=== PATIENT | male | born 1970 | race Caucasian/White ===

== ENCOUNTER 2022-07-22 13:38 | Emergency (ER) | payer OTHER, SELFPAY ==
--- NOTE | ~2022-07-22 | XR_ITS ---
EXAMINATION: XR chest 2V DATE: 07/22/2022 15:17 INDICATION: Fall with head injury TECHNIQUE: frontal and lateral views of the chest were obtained. COMPARISON: None FINDINGS: Small calcified nodule in the left lower lung zone consistent with old granulomatous disease. No othe r airspace opacities, pulmonary edema, pleural effusion or pneumothorax. The cardiomediastinal silhou ette is normal. Old healed mid left clavicle fracture in the couple old healed posterior left 10th an d 11th rib fractures. Mild thoracic spondylosis. No evident acute osseous normality. IMPRESSION: 1. No acute cardiopulmonary disease or acute osseous abnormality. Reviewed, dictated and finalized at location B.
--- NOTE | ~2022-07-22 | CT_ITS ---
EXAMINATION: CT brain wo con DATE: 07/22/2022 14:29 INDICATION: Head injury. TECHNIQUE: Computed tomography (CT) of the head was performed without intravenous contrast. The mA wa s adjusted according to patient size. Iterative reconstruction technique was employed. The dose-lengt h product was 605.33 mGy-cm. COMPARISON: None FINDINGS: There is no intracranial hemorrhage, acute infarction, or abnormal intracranial mass lesion . There are scattered areas of low attenuation in the cerebral white matter. The ventricles are ravindra l in size. There is mild mucosal thickening in the paranasal sinuses. The orbits are normal. The mast oid air cells are normal. IMPRESSION: 1. Mild nonspecific cerebral white matter disease, which likely represents chronic small vessel ische haider disease. Reviewed, dictated and finalized at location A. IMPRESSION: 1. Mild nonspecific cerebral white matter disease, which likely represents chicken dresser mirna small vessel ischemic disease.
[2022-07-22 13:39] VITALS: BP 121/90; PULSE 94; RESP 14; TEMP 36.2; O2SAT 98
--- NOTE | 2022-07-22 13:55 | ED.WOUNDLAC ---
HPI - Wound/Laceration General Chief Complaint: Wound/Laceration Stated Complaint: fall with small lac behind left ear Time Seen by Provider: 07/22/22 13:39 History of Present Illness HPI narrative: 52-year-old male with a history of depression and anxiety here from his nursing facility for evaluation after a fall today. Patient states that he was using his walker while he was ambulating when he lost his balance and fell backwards, hitting his head on the floor. No loss of consciousness. Patient states that he was in his usual state of health prior to the fall and denies any preceding chest pain, lightheadedness, dizziness or shortness of breath. Currently, patient feels at his baseline and denies any complaints aside from a small abrasion to his posterior left ear with no active bleeding. He has been able to walk without pain. He is unsure of his last tetanus shot. Patient tells me that he has frequent falls due to chronic gait unsteadiness and lives in an assisted living facility for this. Related Data Home Medications Medication Instructions Recorded Confirmed aspirin 81 mg tablet,delayed 81 mg PO DAILY 07/08/21 release diphenhydramine HCl 25 mg capsule 50 mg PO TID PRN 07/08/21 (Allergy Relief (diphenhydramine)) divalproex 500 mg tablet,delayed 500 mg PO Q12H 07/08/21 release fenofibrate 40 mg tablet 40 mg PO TID 07/08/21 fluoxetine 40 mg capsule 40 mg PO BID 07/08/21 magnesium hydroxide 400 mg/5 mL 5 ml PO DAILY PRN 07/08/21 oral suspension (Milk of Magnesia) omeprazole 20 mg capsule,delayed 20 mg PO DAILY 07/08/21 release psyllium husk 0.4 gram capsule 0.4 g PO DAILY 07/08/21 (Fiber (psyllium husk)) risperidone 2 mg tablet 2 mg PO DAILY 07/08/21 rosuvastatin 5 mg tablet 5 mg PO DAILY 07/08/21 tolnaftate 1 % topical cream 1 applic topical DAILY 07/08/21 (Athlete's Foot (tolnaftate)) Allergies Allergy/AdvReac Type Severity Reaction Status Date / Time No Known Allergies Allergy Verified 07/08/21 09:18 Review of Systems Review of Systems: Gen: Denies fevers or chills Eyes: Denies eye pain or visual change ENT: Denies congestion Respiratory: Denies shortness of breath or cough CV: Denies chest pain or palpitations GI: Denies abdominal pain nausea, emesis or diarrhea denies burning, urgency, frequency or hematuria Musculoskeletal: Denies back pain or muscle pain Neuro: Denies numbness, tingling, weakness or focal weakness Skin: Reports small abrasion behind left ear. Except as documented, all other systems reviewed and negative Exam Narrative: APPEARANCE: Well appearing, no pain in distress, well-nourished. Head: Concepcion sign negative. EYES: PERRLA/EOMI, conjunctivae clear NOSE: No nasal drainage EARS: External ear normal in appearance THROAT: Oropharynx is clear. Mucous membranes are moist. NECK: Supple. No adenopathy, no masses. RESPIRATORY: Airway patent, respirations nonlabored. Clear to auscultation bilaterally, no rales, rhonchi, wheezing. CARDIOVASCULAR: Regular rate and rhythm without murmurs, rubs, or gallops. ABDOMINAL: Normoactive bowel sounds. Soft, nontender, nondistended. No rebound tenderness or guarding. MUSCULOSKELETAL: Extremities are warm and well-perfused. Moves all extremities well. No edema. NEURO: Cranial nerves II through XII intact. Normal speech. No focal neurologic deficits. SKIN: 3 mm abrasion to left posterior ear noted with no active bleeding. PSYCHIATRIC: Normal affect/mood. Course Vital Signs Vital signs: Vital Signs Temperature 97.2 F L 07/22/22 13:39 Pulse Rate 94 07/22/22 13:39 Respiratory Rate 14 07/22/22 13:39 Blood Pressure 121/90 07/22/22 13:39 Pulse Oximetry 98 07/22/22 13:39 Oxygen Delivery Room Air 07/22/22 13:39 Temperature 97.2 F L 07/22/22 13:39 Pulse Rate 80 07/22/22 16:37 Respiratory Rate 12 07/22/22 16:37 Blood Pressure 129/80 07/22/22 16:37 Pulse Oximetry 98 07/22/22 16:37 Oxygen
[2022-07-22] MEDS: TETANUS,DIPHTHERIA,AC PERTUSSIS ADULT (0.5 ML) BOOSTRIX IM (14:12)
--- NOTE | 2022-07-22 15:05 | ECG_ITS ---
Measurements Intervals [place] Rate: 86 P: 51 UT: 152 QRS: 43 QRSD: 94 T: 41 QT: 335 QTc: 402 Interpretive Statements SINUS RHYTHM BASELINE ARTIFACT- I, AVR, AVL NORMAL ECG NO PREVIOUS ECG AVAILABLE FOR COMPARISON Electronically Signed On 07-22-2022 15:28:45 CDT by Alen Warren D.O.
[2022-07-22 15:46] LABS: Basophils Percent Auto 0.2 % (0.2-1.2); Eosinophils Percent Auto 0.2 % (0-4.4); Hematocrit 41.9 % (42.0-52.0); Immature Granulocyte Absolute 0.04 K/mm3 (0.00-0.031); Immature Granulocyte Percent A 0.8 % (0-0.5); Immature Platelet Fraction Pct 3.2 % (0.9-11.2); Lymphocytes Absolute Auto 1.31 K/mm3 (0.9-3.2); Mean Corpuscular HGB Conc 33.4 g/dl (32-36); Mean Corpuscular Volume 95.9 fl (80-100); Mean Platelet Volume 10.1 fl (7.4-10.4); Monocytes Absolute Auto 0.5 K/mm3 (0.1-0.6); Monocytes Percent Auto 9.1 % (2.6-8.5); Neutrophils Absolute Auto 3.2 K/mm3 (1.3-6.7); Neutrophils Percent Auto 63.7 % (45.5-73.1); Platelet Count Result 137 k/mm3 (150-375); Red Blood Count 4.37 M/mm3 (4.6-6.20); Red Cell Distribution Width 13.5 % (11.5-14.5)
[2022-07-22 15:51] VITALS: BP 123/76; PULSE 87
[2022-07-22 15:53] LABS: Anion Gap 9 mmol/L (8-16); Blood Urea Nitrogen 12 mg/dL (9-20); Calcium 8.9 mg/dL (8.4-10.2); Carbon Dioxide 25 mmol/L (22-30); Chloride 103 mmol/L (98-107); Estimated CRCL calculation 57 ml/min; Estimated Glomerular Filt Rate 58; Glucose 111 mg/dL (65-110); Potassium 4.4 mmol/L (3.4-5.0); Sodium 137 mmol/L (137-145)
[2022-07-22 15:54] VITALS: BP 124/72; PULSE 91
[2022-07-22 15:56] VITALS: BP 111/83; PULSE 91
--- NOTE | 2022-07-22 16:11 | PC.NURSE ---
[facility] contacted for transport back to [facility]
[2022-07-22 16:37] VITALS: BP 129/80; PULSE 80; RESP 12; O2SAT 98
== END 2022-07-22 19:04 ==
PROVIDERS: Physician Assistant; Emergency Provider Emergency Medicine
DX: S00.81XA Abrasion of other part of head, initial encounter (principal); Z79.82 Long term (current) use of aspirin; Z23 Encounter for immunization; W18.39XA Other fall on same level, initial encounter; Y92.129 Unspecified place in nursing home as the place of occurrence of the external cause
CPT/HCPCS: 36415; 70450; 71046; 80048; 85025; 85055; 90471; 90715; 93005; 99284

== ENCOUNTER 2022-12-17 19:41 | Emergency (ER) | payer OTHER, SELFPAY ==
[2022-12-17] VITALS (16 sets, daily range): BP systolic 107–136; BP diastolic 76–94; PULSE 89–98; RESP 16–17; TEMP 36.7; O2SAT 96–100
--- NOTE | ~2022-12-17 | CT_ITS ---
EXAMINATION: CT cervical spine wo con DATE: 12/17/2022 20:21 INDICATION: Neck pain after fall TECHNIQUE: Computed tomography (CT) of the cervical spine was performed without intravenous contrast. The dose-length product (DLP) was 436.33 mGy-cm. Automated exposure control and iterative reconstruc tion technique were employed. COMPARISON: None FINDINGS: Bone alignment is normal. There is no fracture. There are moderate loss of intervertebral d isc space height at C5-6 and mild loss of intervertebral disc space height at C6-7. The odontoid proc ess is intact. Small degenerative osteophytes project from the anterior endplates of multiple vertebr al bodies. There is multilevel mild facet and uncovertebral joint osteoarthritis. IMPRESSION: 1. Mild cervical spondylosis without acute findings. Reviewed, dictated and finalized at location F.
--- NOTE | ~2022-12-17 | CT_ITS ---
EXAMINATION: CT brain wo con INDICATION: Head injury COMPARISON: 07/22/2022 TECHNIQUE: Standard unenhanced head CT. The dose-length product (DLP) was 983.67 mGy-cm. The mA was a djusted according to patient size. Iterative reconstruction technique was employed. FINDINGS: There is no acute intraparenchymal hemorrhage. No evidence of mass lesion. No evidence of a cute infarction. There is mild periventricular and subcortical hypodensity probably related to small vessel ischemic disease. There is mild prominence of the sulci and ventricles related to cerebral atr ophy. Intracranial calcified cerebral atherosclerosis is noted. There are no extra-axial collections. There is no mass effect or midline shift. The orbits and soft tissues are unremarkable. There is mil d mucosal thickening of the paranasal sinuses. IMPRESSION: 1. No acute intracranial abnormality. 2. Age related findings. Reviewed, dictated and finalized at location F.
--- NOTE | ~2022-12-17 | XR_ITS ---
EXAMINATION: XR chest 1V portable INDICATION: Pain after fall TECHNIQUE: Portable AP chest at 2143 hours COMPARISON: 07/22/2022 FINDINGS: The lungs are free of acute opacities. No pleural effusion or pneumothorax. The cardiomedia stinal silhouette is normal. IMPRESSION: 1. No acute cardiopulmonary abnormality. Reviewed, dictated and finalized at location F.
--- NOTE | 2022-12-17 20:06 | ED.FALL ---
HPI - Fall General Chief Complaint: Fall <DO Grayson Hernandez Last Filed: 12/18/22 07:04> Stated Complaint: fall <DO Grayson Hernandez Last Filed: 12/18/22 07:04> Source: EMS and RN notes reviewed <DO Grayson Hernandez Last Filed: 12/18/22 07:04> History of Present Illness HPI Narrative: Patient presents emergency department from [facility] via EMS for a fall. Patient states he has a history of traumatic brain injury from a tree branch falling on him when he were cutting down trees states that he currently resides in an [facility]. He states that today he was walking with his walker when his legs became weak and he fell and he denies any injury from the fall states that his legs do get weak frequently when he has a urinary tract infection. He denies any fevers or chills he denies any chest pain shortness of breath abdominal pain nausea vomiting other symptoms. The patient is ANO x4 at this <DO Grayson Hernandez Last Filed: 12/18/22 07:04> Related Data Home Medications: Home Medications Medication Instructions Recorded Confirmed aspirin 81 mg tablet,delayed 81 mg PO DAILY 07/08/21 release diphenhydramine HCl 25 mg capsule 50 mg PO TID PRN 07/08/21 (Allergy Relief (diphenhydramine)) divalproex 500 mg tablet,delayed 500 mg PO Q12H 07/08/21 release fenofibrate 40 mg tablet 40 mg PO TID 07/08/21 fluoxetine 40 mg capsule 40 mg PO BID 07/08/21 magnesium hydroxide 400 mg/5 mL 5 ml PO DAILY PRN 07/08/21 oral suspension (Milk of Magnesia) omeprazole 20 mg capsule,delayed 20 mg PO DAILY 07/08/21 release psyllium husk 0.4 gram capsule 0.4 g PO DAILY 07/08/21 (Fiber (psyllium husk)) risperidone 2 mg tablet 2 mg PO DAILY 07/08/21 rosuvastatin 5 mg tablet 5 mg PO DAILY 07/08/21 tolnaftate 1 % topical cream 1 applic topical DAILY 07/08/21 (Athlete's Foot (tolnaftate)) <DO Grayson Hernandez Last Filed: 12/18/22 07:04> Allergies/Adverse Reactions: Allergies Allergy/AdvReac Type Severity Reaction Status Date / Time No Known Allergies Allergy Verified 07/08/21 09:18 <Dontae Berry DO - Last Filed: 12/18/22 07:04> Review of Systems Review of Systems: Gen.: Denies fevers or chills Eyes: Denies eye pain or visual change ENT: Denies congestion Respiratory: Denies shortness of breath or cough CV: Denies chest pain or palpitations GI: Denies abdominal pain nausea, emesis Musculoskeletal: Denies back pain or muscle pain Neuro: Reports weakness Skin: Denies rash Except as documented, all other systems reviewed and negative <Dontae Berry DO - Last Filed: 12/18/22 07:04> [facility] Past Medical History Medical History: Medical History (Updated 12/17/22 @ 22:29 by Una Majano PA-C) Traumatic brain injury <Dontae Berry DO - Last Filed: 12/18/22 07:04> Social History Social History: Social History (Updated 12/17/22 @ 20:07 by Dontae Berry DO) Smoking status: Never smoker <Dontae Berry DO - Last Filed: 12/18/22 07:04> Exam Narrative: APPEARANCE: No acute distress, nontoxic, resting in bed EYES: EOMI, PERRL HEENT: Normocephalic, atraumatic, no facial tenderness OMM Neck: Supple no midline tenderness palpation temporal patient right perigee muscles C5-7 RESPIRATORY: No respiratory distress Clear to auscultation bilaterally with no rhonchi wheezing or rales. CARDIOVASCULAR: Regular rate and rhythm without murmurs rubs or gallops. ABDOMINAL: Soft, nontender, nondistended, no rebound or guarding MUSCULOSKELETAl: Moves all extremities. No clubbing, cyanosis or edema. No tenderness of the bilateral upper or lower extremities NEURO: Awake and alert x 4. Following commands, speech normal, no focal deficits muscle strength 5 out of 5 bilateral upper and lower extremities SKIN:: Warm, dry. No rashes lesions or abrasions PSYCHIATRIC: Normal affect/mood, <Dontae Berry DO - Last Filed: 12/18/22 07:04> Course Course
[2022-12-17 21:04] LABS: Basophils Percent Auto 0.2 % (0.2-1.2); Eosinophils Percent Auto 0.2 % (0-4.4); Hematocrit 39.4 % (42.0-52.0); Hemoglobin 12.9 g/dL (14.0-18.0); Immature Granulocyte Absolute 0.04 K/mm3 (0.00-0.031); Immature Granulocyte Percent A 0.7 % (0-0.5); Immature Platelet Fraction Pct 3.2 % (0.9-11.2); Lymphocytes Absolute Auto 2.02 K/mm3 (0.9-3.2); Lymphocytes Percent Auto 35.7 % (18.3-44.2); Mean Corpuscular HGB Conc 32.7 g/dl (32-36); Mean Corpuscular Hemoglobin 32.1 pg (26-34); Mean Platelet Volume 10.6 fl (7.4-10.4); Monocytes Absolute Auto 0.6 K/mm3 (0.1-0.6); Monocytes Percent Auto 10.2 % (2.6-8.5); Platelet Count Result 139 k/mm3 (150-375); Red Blood Count 4.02 M/mm3 (4.6-6.20); Red Cell Distribution Width 13.8 % (11.5-14.5); White Blood Count 5.7 K/mm3 (4.5-10.0)
[2022-12-17 21:17] LABS: Alanine Aminotransferase 31 U/L (6-50); Albumin Level 3.7 g/dL (3.5-5.1); Alkaline Phosphatase 66 U/L (38-126); Anion Gap 6 mmol/L (8-16); Aspartate Amino Transferase 39 U/L (17-59); Bilirubin,Total 0.5 mg/dL (0.2-1.3); Blood Urea Nitrogen 16 mg/dL (9-20); Calcium 9.2 mg/dL (8.4-10.2); Carbon Dioxide 26 mmol/L (22-30); Chloride 108 mmol/L (98-107); Estimated Glomerular Filt Rate > 60; Glucose 92 mg/dL (65-110); Sodium 140 mmol/L (137-145)
[2022-12-17 22:15] LABS: Appearance Urine Clear (Clear); Bacteria Urine None Seen /hpf; Bilirubin Urine Negative (Negative); Color Urine Yellow (Yellow); Glucose Urine UA Negative (Negative); Ketones Urine Trace mg/dL (Negative); Leukocyte Esterase Ur Negative LEU/UL (Negative); Need Manual Microscopic Reviewed; Nitrate Urine Negative (Negative); Non Pathogenic Casts 0-2; Protein Urine Negative (Negative); Specific Grav Ur 1.025 (1.001-1.035); Squamous Epithelial Cell Urine None seen /hpf (Few); WBC Urine 0-5 /hpf
[2022-12-17 22:18] LABS: Add Urine Microscopic? YES
--- NOTE | 2022-12-17 23:55 | PC.NURSE ---
Report given to WILLIAM De Dios.
--- NOTE | 2022-12-17 23:57 | PC.NURSE ---
See incident report filled out by WILLIAM Garcia charge for [id number].
[2022-12-18 00:01] VITALS: BP 106/73
--- NOTE | 2022-12-18 00:04 | PC.NURSE ---
Report called to LUKE Curtis at [facility] at [phone].
[2022-12-18 01:23] VITALS: BP 116/80; PULSE 83; RESP 18; O2SAT 99
== END 2022-12-18 01:25 ==
PROVIDERS: Emergency Provider Emergency Medicine; PCP Internal Medicine
DX: R53.1 Weakness (principal); Z87.820 Personal history of traumatic brain injury
CPT/HCPCS: 36415; 70450; 71045; 72125; 80053; 81001; 85025; 85055; 99284

== ENCOUNTER 2023-01-18 08:38 | Inpatient (IN) | payer OTHER, SELFPAY ==
[2023-01-18] VITALS (26 sets, daily range): BP systolic 85–111; BP diastolic 57–89; PULSE 112–142; RESP 16–31; TEMP 36.4–37.3; O2SAT 86–96; BMI 26.6
--- NOTE | ~2023-01-18 | CT_ITS ---
EXAMINATION: CTA chest PE protocol DATE: 01/21/2023 12:49 INDICATION: Chest pain. TECHNIQUE: Computed tomography angiography (CTA) of the chest was performed with 100 mL Omnipaque-350 intravenous contrast timed to evaluate the pulmonary arteries. Coronal maximum intensity projection 3D-reconstructions were created by the technologist. Automated exposure control and iterative reconst ruction technique were employed. The dose-length product was 566.73 mGy-cm. COMPARISON: CT abdomen and pelvis 01/18/2023 FINDINGS: There is mild scarring at the lung apices. There are airspace and groundglass opacities in the lower lobes and lingula. There are centrilobular nodules and tree-in-bud opacities in left upper lobe. There are peripheral groundglass opacities in the upper lobes. A calcified left lung nodule is consistent with old granulomatous disease. There is no pleural effusion. The heart size is normal. No pericardial effusion. There is a large distribution of acute pulmonary emboli involving all lobes in cluding in distal left main pulmonary artery. There is mild bilateral gynecomastia. There is mild tho racic spondylosis. IMPRESSION: 1. Acute pulmonary emboli in all lobes. No findings of right heart strain. 2. Diffuse lung disease, worst in the lower lobes, likely a combination of infarcts and multifocal pn eumonia. Reviewed, dictated and finalized at location A. IMPRESSION: 1. Acute pulmonary emboli in all lobes. No findings of right heart strain. 2. Diffuse lung disease, worst in the lower lobes, likely a combination of infa rcts and multifocal pneumonia.
--- NOTE | ~2023-01-18 | XR_ITS ---
Portable chest x-ray Comparison: 01/19/2023 Clinical History: Pneumonia Findings: COPD pattern of the lungs present. Questionable minimal bibasilar pulmonary edema. Cardio mediastinal silhouette is stable. Bones and soft tissues are unremarkable. Impression: COPD pattern of the lungs with questionable minimal bibasilar pulmonary edema. Reviewed, dictated and finalized at [facility]. Impression: COPD pattern of the lungs with questionable minimal bibasilar pulmonary edema.
--- NOTE | ~2023-01-18 | XR_ITS ---
EXAMINATION: XR abdomen/kub 1V DATE: 01/23/2023 10:41 INDICATION: Fecal impaction. TECHNIQUE: A supine view of the abdomen on 2 radiographs was obtained. COMPARISON: CT abdomen and pelvis 01/18/2023 FINDINGS: There are no dilated loops of bowel. Stool distends the rectum. The small bowel is normal i n caliber. There is a catheter in the bladder. IMPRESSION: 1. Stool distends the rectum. Reviewed, dictated and finalized at location A.
--- NOTE | ~2023-01-18 | XR_ITS ---
MODIFIED ESOPHAGRAM HISTORY: Dysphagia with failed modified swallow study 2 days prior. TECHNIQUE: Modified barium esophagram was performed on . I administered fluoroscopy and performed the exam with speech pathologist. Patient was seated for lateral fluoroscopic imaging for ingestion of thin liquids, pudding, solids and quantified amounts, followed by thin liquids in uncontrolled amount s. This was recorded on tape. A single fluoroscopic spot image was also recorded. The DAP for this pr ocedure was 1.119 Gycm2. The amount of fluoroscopy time used during this procedure was 1.5 minutes. FINDINGS: Oral stage: Adequate function. Pharyngeal stage: Adequate function. Cervical/esophageal stage: Adequate function. IMPRESSION: Patient tolerated regular consistency oral feedings in the upright position. Please lucia elate with speech pathologist findings and specific feeding recommendations. Reviewed, dictated and finalized at location A. IMPRESSION: Patient tolerated regular consistency oral feedings in the upright position. Please correlate with speech pathologist findings and specific feedi ng recommendations.
--- NOTE | ~2023-01-18 | XR_ITS ---
EXAMINATION: XR barium swallow modified DATE: 01/22/2023 13:17 INDICATION: Choking episode. TECHNIQUE: The patient was given barium-containing material of multiple consistencies to swallow by t karin speech pathologist while I performed fluoroscopy. Fluoroscopy exposure time was 1.5 minutes. The n umber of fluoroscopy images saved to the PACS was 1. Dose-area product was 1.007 Gy-cm^2. FINDINGS: There is reduced laryngeal elevation, reduced tongue base retraction, reduced pharyngeal squeeze, nirmal lecular residue, piriform sinus residue, pharyngeal wall residue, and laryngeal penetration. IMPRESSION: 1. Laryngeal penetration. High risk for aspiration, but no aspiration visualized. 2. Please refer to the speech therapy report for recommendations. Reviewed, dictated and finalized at location A. IMPRESSION: 1. Laryngeal penetration. High risk for aspiration, but no aspiration visualize d. 2. Please refer to the speech therapy report for recommendations.
--- NOTE | ~2023-01-18 | US_ITS ---
EXAMINATION: US renal BI DATE: 01/19/2023 12:45 INDICATION: Acute kidney injury. TECHNIQUE: Multiple ultrasound grayscale images of the kidneys were obtained. COMPARISON: CT abdomen and pelvis 01/18/2023 FINDINGS: The right kidney measures 11.3 x 7.2 x 6.4 cm. The left kidney measures 12.0 x 6.2 x 6.1 cm. The kidn eys demonstrate normal parenchymal echogenicity. There are cysts in right kidney measuring up to 4.4 cm. There is no hydronephrosis. The bladder is decompressed by a Palmer catheter. IMPRESSION: 1. Normal kidney sizes. No hydronephrosis. Reviewed, dictated and finalized at location A.
--- NOTE | ~2023-01-18 | MR_ITS ---
EXAMINATION: MR brain/brain stem wo/w con DATE: 01/20/2023 11:54 INDICATION: Altered mental status. TECHNIQUE: Magnetic resonance imaging (MRI) of the brain and brainstem was performed without and with 15 mL MultiHance intravenous contrast. COMPARISON: Head CT 01/18/2023 FINDINGS: There are scattered areas of nonspecific increased T2-weighted signal intensity in the cere bral white matter. There is no intracranial hemorrhage, acute infarction, or abnormal intracranial ma ss lesion. There is chronic encephalomalacia in anteroinferior right frontal lobe. The ventricles are normal in size. The orbits are normal. The paranasal sinuses are clear. The mastoid air cells are no rmal. IMPRESSION: 1. Chronic encephalomalacia in anteroinferior right frontal lobe. 2. Mild nonspecific cerebral white matter disease, which likely represents chronic small vessel ische haider disease. Reviewed, dictated and finalized at location A. IMPRESSION: 1. Chronic encephalomalacia in anteroinferior right frontal lobe. 2. Mild nonspecific cerebral white matter disease, which likely represents chronometer tester mirna small vessel ischemic disease.
--- NOTE | ~2023-01-18 | XR_ITS ---
Portable chest x-ray Comparison: 12/17/2022 Clinical History: Hypoxia Findings: There is hazy airspace opacity at the left infrahilar region. Right lung clear. Cardiomed iastinal silhouette is stable. Bones and soft tissues are unremarkable. Impression: Hazy left infrahilar airspace disease, suspicious for pneumonia. Recommend follow-up examination at a minimum, versus CT to further evaluate as indicated. Reviewed, dictated and finalized at location . Impression: Hazy left infrahilar airspace disease, suspicious for pneumonia. Recommend foll ow-up examination at a minimum, versus CT to further evaluate as indicated.
--- NOTE | ~2023-01-18 | US_ITS ---
EXAMINATION: US venous doppler [facility] DATE: 01/18/2023 17:49 INDICATION: Edema . TECHNIQUE: Grayscale images without and with compression and Doppler images of the bilateral lower ex tremity veins were obtained. COMPARISON: 09/17/2016 FINDINGS: The right common femoral vein was initially noncompressible with no flow. However, flow and compressi bility returned during at the examination. The deep femoral, superficial femoral, gastrocnemius, grea ter saphenous, and popliteal veins were noncompressible and demonstrated no flow. Partial flow in the posterior tibial and peroneal veins. Mobile margin of thrombus noted in the right superficial femora l vein. Lack of flow and compressibility in the left common femoral vein, profunda (deep) femoral vein, femo ral vein, popliteal vein, gastrocnemius vein, and greater saphenous vein. Partial flow in the calf ve ins. IMPRESSION: 1. Thrombus initially visualized in the right common femoral vein which resolved during examination suggesting active proximal embolization. 2. Extensive deep venous thrombosis in the remaining right lower extremity veins, including mobile th rombus which is at risk for further embolization. 3. Extensive deep venous thrombosis in the left lower extremity veins. 4. Consider CT pulmonary angiography to evaluate for pulmonary emboli. Results reported telephonically to Leanna Recinos RN by Dr. Correa at 5:39 PM on 01/18/2023. Reviewed, dictated and finalized at location K. IMPRESSION: 1. Thrombus initially visualized in the right common femoral vein which resolv ed during examination suggesting active proximal embolization. 2. Extensive deep venous thrombosis in the remaining right lower extremity vein s, including mobile thrombus which is at risk for further embolization. 3. Extensive deep venous thrombosis in the left lower extremity veins. 4. Consider CT pulmonary angiography to evaluate for pulmonary emboli. Results reported telephonically to Leanna Recinos RN by Dr. Correa at 5:39 PM on 01/18/2023.
--- NOTE | ~2023-01-18 | CT_ITS ---
EXAMINATION: CT abdomen pelvis wo con DATE: 01/18/2023 10:42 INDICATION: Hematuria, distended bladder and sepsis TECHNIQUE: Computed tomography (CT) of the abdomen and pelvis was performed without intravenous contr ast. Automated exposure control and iterative reconstruction technique were employed. The dose-length product was 936.63 mGy-cm. COMPARISON: None FINDINGS: Consolidation with small mild surrounding groundglass opacity in the medial aspect of the left lower lobe consistent with pneumonia. More linear opacities in the right lower lobe which would favor atele ctasis. Calcified nodule at the lingula consistent with old granulomatous disease. Heart size is norm al. No pericardial or pleural effusion. Liver, gallbladder, spleen, pancreas and bilateral adrenal gl ands are normal. Bilateral renal cysts, the largest on the right measuring up to 4 cm. Mild bilateral hydronephrosis without associated hydroureter. No evident urolithiasis or evident obstructing masses . Gas and a Palmer catheter within the bladder. Despite being largely decompressed the bladder is joseluis edly patulous extending up to 23 cm cephalad to the level of the base of the bladder where there are changes of prior prostatectomy. There is some trace stranding surrounding the decompressed bladder bishop spicious for cystitis. 9.2 x 7.7 cm ball of stool at the rectum suggestive of possible constipation w ith fecal impaction. Moderate amount of stool in the more proximal colon. Small bowel and appendix ar e normal. No free intraperitoneal gas or fluid. No pathologically enlarged abdominal or pelvic lympha denopathy. Tiny fat-containing umbilical hernia. Sacralized L5 segment with moderate to severe degene rative disc disease at L4-L5. IMPRESSION: 1. Left lower lobe pneumonia. 2. Inflammatory stranding surrounding the likely decompressed but markedly patulous bladder which is suspicious for cystitis. Correlate with urinalysis. 3. Mild bilateral hydronephrosis without associated hydroureter or obstructing stones or masses which along with likely bladder may represent patulous collecting systems related to chronic outlet obstru ction or neurogenic bladder. Patient is post prostatectomy with Palmer catheter in the bladder. 4. Moderate amount of colonic stool with 9.2 x 7.7 similar ball of stool at rectum suggestive of cons tipation with fecal impaction. Reviewed, dictated and finalized at location L. IMPRESSION: 1. Left lower lobe pneumonia. 2. Inflammatory stranding surrounding the likely decompressed but markedly patu lous bladder which is suspicious for cystitis. Correlate with urinalysis. 3. Mild bilateral hydronephrosis without associated hydroureter or obstructing stones or masses which along with likely bladder may represent patulous collect ing systems related to chronic outlet obstruction or neurogenic bladder. Patien t is post prostatectomy with Palmer catheter in the bladder. 4. Moderate amount of colonic stool with 9.2 x 7.7 similar ball of stool at rec alejandra suggestive of constipation with fecal impaction.
--- NOTE | ~2023-01-18 | US_ITS ---
US scrotum doppler INDICATION: Scrotal edema TECHNIQUE: Testicular sonogram utilizing grayscale and color Doppler FINDINGS: The testes are normal in size and appearance. No focal lesions are seen. The right testes measures 3.4 x 3.1 x 3.2 cm centimeters, and the left testis measures 4.4 x 2.8 x 2.8 cm cm. There is normal vascular flow to both testes. There is severe diffuse bilateral scrotal edema. The right and left epididymides appear normal. There is a right hydrocele. IMPRESSION: 1. Severe bilateral scrotal edema. 2: Small right hydrocele. Reviewed, dictated and finalized at location L.
--- NOTE | ~2023-01-18 | XR_ITS ---
EXAMINATION: XR chest 1V portable DATE: 01/19/2023 13:11 INDICATION: Left lower lobe pneumonia. TECHNIQUE: A single frontal view of the chest was obtained. COMPARISON: Chest single view 01/18/2023, CT abdomen and pelvis 01/18/2023 FINDINGS: There are mild airspace opacities in right lower lung zone and left mid and lower lung zone s. No pleural effusion or pneumothorax. The heart size is normal. IMPRESSION: 1. Mild airspace opacities in right lower lung zone and left mid and lower lung zones with improvemen t on the left, consistent with pneumonia. Reviewed, dictated and finalized at location A. IMPRESSION: 1. Mild airspace opacities in right lower lung zone and left mid and lower lung zones with improvement on the left, consistent with pneumonia.
--- NOTE | ~2023-01-18 | CT_ITS ---
EXAMINATION: CT brain wo con DATE: 01/18/2023 19:43 INDICATION: ams . TECHNIQUE: Computed tomography (CT) of the head was performed without intravenous contrast. The mA wa s adjusted according to patient size. Iterative reconstruction technique was employed. The dose-lengt h product was 1362.00 mGy-cm. COMPARISON: 12/17/2022. FINDINGS: No acute intracranial hemorrhage or extra-axial fluid collection. No hydrocephalus, mass, or herniation. No acute ischemic infarct. Unremarkable dural venous sinus attenuation. No acute osseous abnormality. Aerated secretions in the posterior aspect of the sphenoid sinus. Mild mucosal thickening in the maxi llary sinuses, the remaining aerated spaces are clear. Mild atrophy and chronic white matter change. Atherosclerotic intracranial calcification. IMPRESSION: No acute intracranial process. Aerated secretions in the sphenoid sinus may represent acute sinusitis in the appropriate clinical context. Reviewed, dictated and finalized at location K. IMPRESSION: No acute intracranial process. Aerated secretions in the sphenoid sinus may rep resent acute sinusitis in the appropriate clinical context.
--- NOTE | 2023-01-18 08:50 | ECG_ITS ---
Measurements Intervals [place] Rate: 138 P: 41 CT: 127 QRS: 61 QRSD: 87 T: 60 QT: 271 QTc: 411 Interpretive Statements SINUS TACHYCARDIA ABNORMAL ECG COMPARED TO ECG 07/22/2022 15:26:42 SINUS TACHYCARDIA NOW PRESENT Electronically Signed On 01-18-2023 9:16:02 CDT by Alen Warren D.O.
[2023-01-18] MEDS: SODIUM CHLORIDE 0.9% IV 1,000 ML 999 ML IV CONT (09:28)
--- NOTE | 2023-01-18 09:28 | ED.AMS ---
HPI - Altered Mental Status General Chief Complaint: Altered Mental Status Stated Complaint: AMS Time Seen by Provider: 01/18/23 08:50 History of Present Illness HPI narrative: Patient presenting from [facility] with worsening confusion, he does have a history of schizophrenia and TBI, per [facility] had been having more difficulty breathing, was hypoxic and hypotensive. Had x-ray yesterday that showed large mass in abdomen/pelvis. Patient denies any issues or pain anywhere. Related Data Home Medications Medication Instructions Recorded Confirmed aspirin 81 mg tablet,delayed 81 mg PO DAILY 07/08/21 release diphenhydramine HCl 25 mg capsule 50 mg PO TID PRN 07/08/21 (Allergy Relief (diphenhydramine)) divalproex 500 mg tablet,delayed 500 mg PO Q12H 07/08/21 release fenofibrate 40 mg tablet 40 mg PO TID 07/08/21 fluoxetine 40 mg capsule 40 mg PO BID 07/08/21 magnesium hydroxide 400 mg/5 mL 5 ml PO DAILY PRN 07/08/21 oral suspension (Milk of Magnesia) omeprazole 20 mg capsule,delayed 20 mg PO DAILY 07/08/21 release psyllium husk 0.4 gram capsule 0.4 g PO DAILY 07/08/21 (Fiber (psyllium husk)) risperidone 2 mg tablet 2 mg PO DAILY 07/08/21 rosuvastatin 5 mg tablet 5 mg PO DAILY 07/08/21 tolnaftate 1 % topical cream 1 applic topical DAILY 07/08/21 (Athlete's Foot (tolnaftate)) Allergies Allergy/AdvReac Type Severity Reaction Status Date / Time No Known Allergies Allergy Verified 12/21/22 13:49 Review of Systems Review of Systems: CONST: Fever. HEENT: No sore throat C/V: No chest pain RESP: Difficulty breathing GI: no abdominal pain : No dysuria. M/S: No joint pain. SKIN: No rash. NEURO: [No headache] PSYCH: [No depression] [facility] Past Medical History Medical History Traumatic brain injury Social History Social History Smoking status: Never smoker Exam Narrative: EXAMINATION OF ORGAN SYSTEMS/BODY AREAS: Constitutional: Vital signs per nursing GENERAL: Tachypneic but does not appear to be in pain HEAD: Normal with no signs of head trauma. EYES: EOMI, conjunctiva normal ENT: Hearing grossly intact LUNGS: Nonlabored breathing. HEART: [Regular rate and rhythm] ABD: [Soft], distended EXT: No obvious deformities SKIN: [No decubitus ulcers.] NEURO: [Alert.] PSYCH: Normal affect Course Vital Signs Vital signs: Vital Signs Temperature 99.1 F 01/18/23 08:44 Pulse Rate 142 H 01/18/23 08:44 Respiratory Rate 25 H 01/18/23 08:44 Blood Pressure 92/65 L 01/18/23 08:44 Pulse Oximetry 89 L 01/18/23 08:44 Oxygen Delivery Nasal Cannula 01/18/23 08:44 Oxygen Flow Rate 4 01/18/23 08:44 Temperature 99.1 F 01/18/23 08:44 Pulse Rate 123 H 01/18/23 12:05 Respiratory Rate 30 H 01/18/23 12:05 Blood Pressure 90/71 L 01/18/23 12:00 Pulse Oximetry 94 01/18/23 12:00 Oxygen Delivery Nasal Cannula 01/18/23 08:44 Oxygen Flow Rate 4 01/18/23 08:44 MDM - Altered Mental Status MDM Narrative Medical decision making narrative: 1) Differential diagnosis: Infection including UTI, pneumonia 2) Comorbidities: TBI, schizophrenia 3) External notes reviewed: [facility] paperwork, prior admission 4) History sources independently obtained from: [facility] paperwork, sister I called 5) Discussion of management with: Hospitalist 6) Independent interpretation of: Chest x-ray, EKG, labs 7) Diagnostic tests or therapies considered but not ordered: CT head however patient does not have history of fall and I have good explanation for his altered mental status 8) Social determinants of health: Schizophrenia 9) Shared decision making: Discussed with sister patient's CODE STATUS 52-year-old male with history of TBI, schizophrenia presenting with altered mental status, found to be tachycardic, tachypneic, hypoxic, sepsis work-up immediately initia
[2023-01-18 10:01] LABS: Basophils Absolute Auto 0.1 K/mm3 (0.0-0.1); Basophils Percent Auto 0.5 % (0.2-1.2); Hematocrit 39.6 % (42.0-52.0); Hemoglobin 12.8 g/dL (14.0-18.0); Immature Granulocyte Absolute 0.27 K/mm3 (0.00-0.031); Immature Granulocyte Percent A 1.5 % (0-0.5); Lymphocytes Absolute Auto 0.64 K/mm3 (0.9-3.2); Lymphocytes Percent Auto 3.7 % (18.3-44.2); Mean Corpuscular HGB Conc 32.3 g/dl (32-36); Mean Corpuscular Hemoglobin 31.8 pg (26-34); Mean Corpuscular Volume 98.3 fl (80-100); Mean Platelet Volume 10.2 fl (7.4-10.4); Monocytes Absolute Auto 2.8 K/mm3 (0.1-0.6); Monocytes Percent Auto 16.1 % (2.6-8.5); Neutrophils Absolute Auto 13.6 K/mm3 (1.3-6.7); Neutrophils Percent Auto 78.2 % (45.5-73.1); Platelet Count Result 183 k/mm3 (150-375); Red Blood Count 4.03 M/mm3 (4.6-6.20); Red Cell Distribution Width 13.7 % (11.5-14.5); White Blood Count 17.4 K/mm3 (4.5-10.0)
[2023-01-18 10:07] LABS: Appearance Urine Clear (Clear); Bacteria Urine None Seen /hpf; Bilirubin Urine Negative (Negative); Blood Urine 3+ (Negative); Color Urine Dark Yellow (Yellow); Glucose Urine UA Negative (Negative); Ketones Urine Negative (Negative); Leukocyte Esterase Ur 1+ LEU/UL (Negative); Nitrate Urine Negative (Negative); Non Pathogenic Casts 0-2; Protein Urine 1+ mg/dL (Negative); RBC Urine 51-100 /hpf (0-2); Squamous Epithelial Cell Urine None seen /hpf (Few); pH Urine 6.5 (5.0-9.0)
[2023-01-18 10:10] LABS: INR 1.3; Lactic Acid Reflex 3.1 mmol/L (0.7-2.0)
[2023-01-18 10:12] LABS: Add Urine Microscopic? YES
[2023-01-18] MEDS: LACTATED RINGERS 1,000 ML 999 ML IV CONT ×2 (10:13→13:27)
[2023-01-18 10:15] LABS: Alanine Aminotransferase 22 U/L (6-50); Albumin Level 3.1 g/dL (3.5-5.1); Alkaline Phosphatase 53 U/L (38-126); Anion Gap 14 mmol/L (8-16); Aspartate Amino Transferase 24 U/L (17-59); Bilirubin,Total 0.7 mg/dL (0.2-1.3); Blood Urea Nitrogen 81 mg/dL (9-20); Calcium 9.1 mg/dL (8.4-10.2); Carbon Dioxide 17 mmol/L (22-30); Chloride 107 mmol/L (98-107); Estimated CRCL calculation 23 ml/min; Estimated Glomerular Filt Rate 18; Glucose 138 mg/dL (65-110); Lipase 36 U/L (23-300); Potassium 5.9 mmol/L (3.4-5.0); Sodium 138 mmol/L (137-145)
[2023-01-18 10:26] LABS: CRP 25.4 mg/dL (<1.0)
[2023-01-18] MEDS: CEFEPIME 2 GM/NS 50 ML 2 GM/50 ML BAG IVPB (10:29)
[2023-01-18 10:37] LABS: Influenza A QL RT-PCR Negative (Negative); Influenza B QL RT-PCR Negative (Negative); RSV RNA, RT-PCR Negative (Negative); SARS-CoV-2 RNA PCR Negative (Negative)
[2023-01-18 12:57] LABS: Reflex Lactic Acid Yes or No Add Lactic
--- NOTE | 2023-01-18 13:43 | ADMGEN ---
This patient, Josh Lo, was admitted to [facility] Surg Room 325-02. Patient/family oriented to hospital policies and general routines including ID bracelet, bed and alarms, visiting hours, pain management, procedures, bathroom and other care routines, personal items, smoking policy, room service/diet, and visiting hours. Information on how to activate the Rapid Response Team has been discussed. Patient/Family are encouraged to report perceived risks to care and to ask questions if they do not understand what they are told or what they should do.
--- NOTE | 2023-01-18 14:49 | PM.IMHP ---
H&P: HPI History of Present Illness Date/Time: 01/18/23 14:50 Chief Complaint: Confusion, hypoxia, hypotension. Narrative: This is a 52-year-old male with history of traumatic brain injury and schizophrenia who presented to the emergency department via EMS from [facility] for evaluation of confusion, hypoxia, and hypotension. He is minimally responsive and is not able to provide any meaningful history and as such majority the following is obtained via a review of his electronic medical records, ED notes, and discussions with his brother and sister. Sister Kori is his healthcare power of litigation attorney associate and she seems to see the patient more than anyone however has been a couple of weeks and she has seen him. senior living staff typically keeps her apprised of changes in the patient's status and they phoned her today after sending the patient to the ED. He reportedly has not felt well for several days and has not been acting like himself. He has been running a temperature though no other specifics were given. He was afebrile on arrival with blood pressures running at the low end of normal. He has been persistently tachypneic and tachycardic since arrival and he is currently on 9 L high-flow nasal cannula with SpO2 in the mid 90s. Labs were significant for a WBC count of 17.4, sodium 138, potassium 5.9, carbon dioxide 14, BUN 81, creatinine 3.50, lactic acid 3.1, CRP 25.4. There is a small amount of blood noted in the urine and his UA was indeed positive for blood, 1+ leukocyte esterase, 51 to 100 RBC, 11 to 20 WBC. He tested negative for flu, RSV, and COVID. Chest x-ray showed hazy left infrahilar airspace disease suspicious for pneumonia. CT of the abdomen and pelvis showed a left lower lobe pneumonia, inflammatory stranding suspicious for cystitis, mild bilateral hydronephrosis without associated hydroureter or obstructing stones or masses, and moderate amount of colonic stool with a 9.2 x 7.7 ball of stool at the rectum suggestive of constipation with fecal impaction. In the ED he was given 2 L IV fluid bolus and doses of azithromycin, cefepime, and vancomycin. He was admitted to the medical floor for further treatment. At the time my evaluation he does not open his eyes or follow commands though he does occasionally make grunting noises. Review of Systems Review of Systems: Unable to obtain given current clinical condition. [facility] Past Medical History Medical History (Updated 01/18/23 @ 20:41 by Jumana Saenz PA-C) Chronic constipation Dyslipidemia Gastroesophageal reflux disease Paranoid schizophrenia Traumatic brain injury Surgical History Surgical History (Updated 01/18/23 @ 20:31 by Jumana Saenz PA-C) No history of major surgery within 1 month Family History Family History Father Heart problem Mother Heart problem Diabetes mellitus Sibling Diabetes mellitus Sibling Diabetes mellitus Sibling Diabetes mellitus Sibling Diabetes mellitus Social History Social History (Updated 01/18/23 @ 14:54 by Jumana Saenz PA-C) Social History: Surrogate medical decision maker: Kori Mckeon, sibling. Code status: Do not resuscitate. Smoking status: Never smoker Alcohol intake: never Substance use: never Spiritual care concerns: No Meds Home Medications and Allergies Home Medications Medication Instructions Recorded Confirmed Type aspirin 81 mg tablet,delayed 81 mg PO DAILY 07/08/21 01/18/23 History release divalproex 500 mg tablet,delayed 500 mg PO Q12H 07/08/21 01/18/23 History release fluoxetine 40 mg capsule 40 mg PO BID 07/08/21 01/18/23 History omeprazole 20 mg capsule,delayed 20 mg PO DAILY 07/08/21 01/18/23 History release rosuvastatin 5 mg tablet 5 mg PO DAILY 07/08/21 01/18/23 History acetaminophen 325 mg tablet 650 mg PO Q6H PRN Pain 01/18/23 01/18/23 History benztropine 1 mg tablet 1
[2023-01-18 16:06] LABS: Anion Gap 7 mmol/L (8-16); Blood Urea Nitrogen 70 mg/dL (9-20); Calcium 8.6 mg/dL (8.4-10.2); Carbon Dioxide 23 mmol/L (22-30); Chloride 106 mmol/L (98-107); Estimated CRCL calculation 35 ml/min; Estimated Glomerular Filt Rate 31; Glucose 176 mg/dL (65-110); Potassium 5.3 mmol/L (3.4-5.0); Sodium 136 mmol/L (137-145)
[2023-01-18 16:27] LABS: Lactic Acid 2.1 mmol/L (0.7-2.0)
--- NOTE | 2023-01-18 17:14 | PC.NURSE ---
to ultrasound per bed
[2023-01-18] MEDS: LACTATED RINGERS 1,000 ML 100 ML IV CONT (17:53)
[2023-01-18 19:15] LABS: Basophils Absolute Auto 0.1 K/mm3 (0.0-0.1); Basophils Percent Auto 0.7 % (0.2-1.2); Hematocrit 38.6 % (42.0-52.0); Hemoglobin 12.5 g/dL (14.0-18.0); Immature Granulocyte Absolute 0.25 K/mm3 (0.00-0.031); Immature Granulocyte Percent A 1.5 % (0-0.5); Lymphocytes Absolute Auto 1.21 K/mm3 (0.9-3.2); Lymphocytes Percent Auto 7.4 % (18.3-44.2); Mean Corpuscular HGB Conc 32.4 g/dl (32-36); Mean Corpuscular Hemoglobin 31.7 pg (26-34); Mean Platelet Volume 10.3 fl (7.4-10.4); Monocytes Absolute Auto 2.6 K/mm3 (0.1-0.6); Neutrophils Absolute Auto 12.1 K/mm3 (1.3-6.7); Neutrophils Percent Auto 74.4 % (45.5-73.1); Platelet Count Result 155 k/mm3 (150-375); Red Blood Count 3.94 M/mm3 (4.6-6.20); Red Cell Distribution Width 13.7 % (11.5-14.5); White Blood Count 16.3 K/mm3 (4.5-10.0)
[2023-01-18 19:25] LABS: INR 1.3; Prothrombin Time 16.8 Seconds (11.1-14.7)
[2023-01-18 19:26] LABS: Partial Thromboplastin Time 30.7 SECONDS (22.3-36.8)
[2023-01-18 20:08] LABS: Ovalocytes 1+ (NORMAL); Platelet Estimate Adequate (Adequate); Schistocytes None Seen (NORMAL)
--- NOTE | 2023-01-18 20:11 | PC.NURSE ---
family at bedside. patient going to ultrasound, then Jumana in room talking with family, then patient going for CT. suppository not given yet. Next shift notified that suppository still needing to be done.
[2023-01-18] MEDS: HEPARIN SOD/D5W 100 UNITS/ML 25,000 UNITS/250 ML BAG 15 UNITS IV CONT (20:23)
[2023-01-18 21:21] LABS: Ammonia 12 umol/L (9-30)
[2023-01-18 21:38] LABS: NT Pro B Type Natriuretic Pept 182 pg/mL (19.9-100)
[2023-01-18 21:45] LABS: Valproic Acid 52.2 ug/mL (50-120)
--- NOTE | 2023-01-18 21:46 | PC.NURSE ---
Patients Troponin resulted as critical at 0.100 (01/18/2023 @ 2138). María Elena LUGO notified. No new orders given.
[2023-01-19] VITALS (21 sets, daily range): BP systolic 98–124; BP diastolic 64–86; PULSE 117–131; RESP 18–36; TEMP 36.8–39.1; O2SAT 93–100
[2023-01-19 00:37] LABS: Amphetamine Screen Urine Negative (Negative); Barbiturate Screen Urine Negative (Negative); Benzodiazepines Screen Urine Negative (Negative); Cannabinoid Screen Urine Negative (Negative); Cocaine Screen Urine Negative (Negative); Methadone Screen Urine Negative (Negative); Opiate Screen Urine Negative (Negative); Phencyclidine Screen Urine Negative (Negative)
[2023-01-19 02:53] LABS: Hematocrit 34.6 % (42.0-52.0); Hemoglobin 11.2 g/dL (14.0-18.0); Mean Corpuscular HGB Conc 32.4 g/dl (32-36); Mean Corpuscular Hemoglobin 31.5 pg (26-34); Mean Corpuscular Volume 97.5 fl (80-100); Platelet Count Result 152 k/mm3 (150-375); Red Blood Count 3.55 M/mm3 (4.6-6.20); Red Cell Distribution Width 13.7 % (11.5-14.5); White Blood Count 20.4 K/mm3 (4.5-10.0)
[2023-01-19 03:10] LABS: Partial Thromboplastin Time 70.9 SECONDS (22.3-36.8)
[2023-01-19] MEDS: HEPARIN SODIUM 5,000 UNITS/ML VIAL 3500 UNITS IV PUSH ×2 (03:19→17:30)
[2023-01-19 03:40] LABS: Estimated CRCL calculation 51 ml/min; Estimated Glomerular Filt Rate 49
[2023-01-19 03:43] LABS: Band Neutrophils Percent 50 % (0-6); Lymphocytes Absolute Manual 1.83 K/mm3 (1.1-4.5); Monocytes Absolute Manual 2.65 K/mm3 (0.1-0.90); Monocytes Percent Manual 13 % (3-9); Neutrophils Absolute Manual 15.91 K/mm3 (1.3-6.7); Neutrophils Percent Manual 28 % (46-73); Total Cells Counted 100
[2023-01-19 03:44] LABS: Auer Rods Present (NORMAL); Burr Cells 1+ (NORMAL); Poikilocytosis 2+ (NORMAL); Schistocytes None Seen (NORMAL)
[2023-01-19] MEDS: LACTATED RINGERS 1,000 ML 100 ML IV CONT ×2 (06:40→22:04)
--- NOTE | 2023-01-19 08:00 | ECHO_ITS ---
Patient Info Name: Josh Lo Age: 52 years : 1970 Gender: Male Ht: 69 in Wt: 180 lbs BSA: 2.01 m2 HR: 122 bpm BP: 107 / 69 mmHg Technical Quality: Fair Exam Date: 01/19/2023 9:43 AM Exam Location: [facility] Pulmonary Exam Room: 325 Patient Status: Inpatient Admit Date: 01/18/2023 Staff Ordering Physician: Jumana Saenz PA-C Oncology Social Work: Leah Bunn RDCS Attending Provider: Alexei Pierer MD Referring Physician: Letty RUBIN; Exam Type: CA echo doppler color flow Study Info Indications - hypoxia tachycardia Complete two-dimensional, color flow and Doppler transthoracic echocardiogram is performed. Summary 1. Complete two-dimensional, color flow and Doppler transthoracic echocardiogram is performed. 2. Left ventricular chamber dimension is normal. 3. Left ventricular systolic function is hyperdynamic, estimated at >70%. 4. The left ventricular diastolic function is grade I diastolic dysfunction. 5. Right ventricular chamber dimension is not well visualized but appears enlarged in some views. 6. Right ventricular systolic function is reduced in some views. 7. No pulmonary hypertension, estimated pulmonary arterial systolic pressure is 39 mmHg. Left Ventricle Tissue doppler E/e' was not performed. Left ventricular chamber dimension is normal. Left ventricular systolic function is hyperdynamic, estimated at >70%. The left ventricular diastolic function is grade I diastolic dysfunction. Right Ventricle Right ventricular chamber dimension is not well visualized but appears enlarged in some views. TAPSE was not performed. Right ventricular systolic function is reduced in some views. Left Atria Left atrial chamber dimension is normal. Right Atria Right atrial chamber dimension is normal. Aortic Valve The aortic valve is trileaflet. There is no aortic valve stenosis. There is no aortic valve regurgitation. Pulmonic Valve There is no pulmonic regurgitation. Mitral Valve There is no mitral valve stenosis. There is no mitral valve regurgitation. Tricuspid Valve There is no tricuspid valve regurgitation. No pulmonary hypertension, estimated pulmonary arterial systolic pressure is 39 mmHg. Pericardium/Pleural There is no pericardial effusion. Inferior Vena Cava Normal inferior vena cava with >50% collapse upon inspiration consistent with normal right atrial pressure, 5 mmHg. Aorta The aortic root size at the sinus of Valsalva is normal. Left Ventricular Outflow Tract Name Value Normal LVOT 2D LVOT Diameter 2.1 cm LVOT Doppler LVOT Peak Gradient 4 mmHg LVOT Mean Gradient 2 mmHg LVOT VTI 14 cm LVOT VTI/AV VTI Ratio 0.8 LVOT Stroke Volume 47 ml LVOT CO 14.1 l/min LVOT CI 7.0 l/min/m2 Pulmonic Valve Name Value Normal RVOT Doppler
[2023-01-19 08:16] LABS: Alanine Aminotransferase 19 U/L (6-50); Albumin Level 2.8 g/dL (3.5-5.1); Alkaline Phosphatase 57 U/L (38-126); Anion Gap 8 mmol/L (8-16); Aspartate Amino Transferase 28 U/L (17-59); Bilirubin,Total 0.5 mg/dL (0.2-1.3); Blood Urea Nitrogen 56 mg/dL (9-20); Calcium 9.3 mg/dL (8.4-10.2); Carbon Dioxide 23 mmol/L (22-30); Chloride 108 mmol/L (98-107); Estimated CRCL calculation 55 ml/min; Estimated Glomerular Filt Rate 53; Glucose 126 mg/dL (65-110); Potassium 5.5 mmol/L (3.4-5.0); Sodium 139 mmol/L (137-145)
--- NOTE | 2023-01-19 09:03 | ECG_ITS ---
Measurements Intervals [place] Rate: 126 P: 51 OH: 127 QRS: 49 QRSD: 92 T: 51 QT: 314 QTc: 456 Interpretive Statements SINUS TACHYCARDIA BASELINE WANDER- II, III, AVF, V4 ABNORMAL ECG COMPARED TO ECG 01/18/2023 08:58:55 NO SIGNIFICANT CHANGES Electronically Signed On 01-19-2023 13:52:49 CDT by Alen Warren D.O.
--- NOTE | 2023-01-19 09:05 | P.PNIM_ITS ---
Progress Note: A&P Assessment and Plan (1) Severe sepsis: Code(s): A41.9 - Sepsis, unspecified organism; R65.20 - Severe sepsis without septic shock Status: Acute Assessment and Plan: Patient presents with tachypnea, tachycardia, leukocytosis, hypotension, and lactic acidosis. This is in the setting of left lower lobe pneumonia. * Blood pressures have been stable in the low 100 systolic with IV fluids. * Blood, sputum, and urine cultures pending * Patient started on vanc, cefepime and azithromycin. White count increased on 12/20/2022 and cefepime was discontinued in imipenem started. * Patient transferred IMU on 01/19/2023 * Patient received 1000 mL bolus due to BP of 98/74 and heart rate of 128. * Contacted ICU doctor to alert him to patient's respiratory status. 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 * Neurology consulted (2) Left lower lobe pneumonia: Code(s): J18.9 - Pneumonia, unspecified organism Status: Acute Assessment and Plan: CT abdomen pelvis revealing lower lobe pneumonia. * Azithromycin, cefepime, and vancomycin Started on admission. White count increased on 01/19/2023 and patient transition from cefepime to imipenem. * Sputum to be attempted for culture. Check urinary antigens. * Pulmonology consulted. * ABG revealing respiratory alkalosis * Patient on high-flow nasal cannula * Patient continuing to be tachycardic and tachypneic. He is not protecting his airway and will remain NPO. (3) Altered mental status: Code(s): R41.82 - Altered mental status, unspecified Status: Acute Assessment and Plan: Brain CT did not show any acute intracranial process. Altered mental status is likely due to severe sepsis, electrolyte abnormalities, and acute kidney injury. * He is on divalproex though a low-dose for his mental illness. * Nonetheless will check a valproic acid level in addition to TSH, B12, ammonia, and drug screen. * TSH, B12, ammonia and drug screen all within normal limits * MRI brain ordered * LP ordered. Hold heparin 4 hours before LP. (4) Acute respiratory failure with hypoxia: Code(s): J96.01 - Acute respiratory failure with hypoxia Status: Acute Assessment and Plan: He is currently requiring 9 L high-flow to maintain his SpO2 in the mid 90s. He does have evidence of a left lower lobe pneumonia on imaging but is not near large enough to require such high levels of oxygen. * Concerns are for pulmonary embolism given bilateral lower extremity DVTs. * He has been started on a heparin drip; CTA of the chest is unable to be performed at this time given renal failure. * Echocardiogram ordered for a.m.. Wean oxygen as tolerated. * ABG ordered revealing respiratory alkalosis (5) Deep vein thrombosis (DVT) of both lower extremities: Code(s): I82.403 - Acute embolism and thrombosis of unspecified deep veins of lower extremity, bilateral Status: Acute Assessment and Plan: According to family members he has been essentially wheelchair-bound since [place] time. * He has bilateral DVTs with concerns for active proximal embolization and findings of a mobile thrombus on Dopplers today. * He has been started on heparin drip and will be on strict bed rest. * Due to tachycardia and tachypnea there is concern for PE. * Once DIAMANTE has resolved will order CTA. (6) Acute kidney injury: Co
--- NOTE | 2023-01-19 09:05 | PM.IMPN ---
Progress Note: A&P Assessment and Plan (1) Severe sepsis: Code(s): A41.9 - Sepsis, unspecified organism; R65.20 - Severe sepsis without septic shock Status: Acute Assessment and Plan: Patient presents with tachypnea, tachycardia, leukocytosis, hypotension, and lactic acidosis. This is in the setting of left lower lobe pneumonia. Blood pressures have been stable in the low 100 systolic with IV fluids. Blood, sputum, and urine cultures pending Patient started on vanc, cefepime and azithromycin. White count increased on 12/20/2022 and cefepime was discontinued in imipenem started. Patient transferred IMU on 01/19/2023 Patient received 1000 mL bolus due to BP of 98/74 and heart rate of 128. Contacted ICU doctor to alert him to patient's respiratory status. 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 Neurology consulted (2) Left lower lobe pneumonia: Code(s): J18.9 - Pneumonia, unspecified organism Status: Acute Assessment and Plan: CT abdomen pelvis revealing lower lobe pneumonia. Azithromycin, cefepime, and vancomycin Started on admission. White count increased on 01/19/2023 and patient transition from cefepime to imipenem. Sputum to be attempted for culture. Check urinary antigens. Pulmonology consulted. ABG revealing respiratory alkalosis Patient on high-flow nasal cannula Patient continuing to be tachycardic and tachypneic. He is not protecting his airway and will remain NPO. (3) Altered mental status: Code(s): R41.82 - Altered mental status, unspecified Status: Acute Assessment and Plan: Brain CT did not show any acute intracranial process. Altered mental status is likely due to severe sepsis, electrolyte abnormalities, and acute kidney injury. He is on divalproex though a low-dose for his mental illness. Nonetheless will check a valproic acid level in addition to TSH, B12, ammonia, and drug screen. TSH, B12, ammonia and drug screen all within normal limits MRI brain ordered LP ordered. Hold heparin 4 hours before LP. (4) Acute respiratory failure with hypoxia: Code(s): J96.01 - Acute respiratory failure with hypoxia Status: Acute Assessment and Plan: He is currently requiring 9 L high-flow to maintain his SpO2 in the mid 90s. He does have evidence of a left lower lobe pneumonia on imaging but is not near large enough to require such high levels of oxygen. Concerns are for pulmonary embolism given bilateral lower extremity DVTs. He has been started on a heparin drip; CTA of the chest is unable to be performed at this time given renal failure. Echocardiogram ordered for a.m.. Wean oxygen as tolerated. ABG ordered revealing respiratory alkalosis (5) Deep vein thrombosis (DVT) of both lower extremities: Code(s): I82.403 - Acute embolism and thrombosis of unspecified deep veins of lower extremity, bilateral Status: Acute Assessment and Plan: According to family members he has been essentially wheelchair-bound since [place] time. He has bilateral DVTs with concerns for active proximal embolization and findings of a mobile thrombus on Dopplers today. He has been started on heparin drip and will be on strict bed rest. Due to tachycardia and tachypnea there is concern for PE. Once DIAMANTE has resolved will order CTA. (6) Acute kidney injury: Code(s): N17.9 - Acute kidney failure, unspecified Status: Acute Assessment and Plan: Likely multifactorial in etiology to include hypovolemia from dehydration, hypoperfusion from relative hypotension, possibly component of urinary retention given evidence of chronic bladder outlet obstruction on imaging, and possible ATN from sepsis. CT of the abdomen and pelvis showed mild bilateral hydronephro
[2023-01-19 10:03] LABS: Partial Thromboplastin Time 108.3 SECONDS (22.3-36.8)
[2023-01-19] MEDS: ALBUTEROL SULFATE NEB 2.5 MG/3 ML INH INHALATION (10:12)
[2023-01-19 10:17] LABS: Troponin I 0.095 ng/mL (0.000-0.034)
--- NOTE | 2023-01-19 10:19 | PCRCNOTE ---
RT walked in this AM to check his 02 and found pt breathing in the 30's on 10L HFNC. Pt was satting 97% at the time. Not responding to verbal or physical stimuli. RN aware stating this was his state when she came onto shift. When RT came back to give one time UPD, pt was still in the same state, not responsive. Dr. Kong was in the room with family. stated he would like a blood gas on the pt at this time. RT putting in order and will draw ABG.
[2023-01-19 10:37] LABS: Alveolar/Arterial O2 Gradient 289.4 mmHg; Base Excess ABG 1.5 mEq/l (+/-2.0); Carboxyhemoglobin 0.3 % THb (0-2.0); Device HIGH FLOW NASAL CANN; Fractional Inspired Oxygen 60 %; HCO3 ABG 24.1 mEq/l (22.0-26.0); Methemoglobin ABG 0.4 %THb (0-1.5); Modified Allen's Test Unable to perform; Oxygen Content ABG 16.4 %vol (16.0-22.0); Oxygen Saturation ABG 98.2 % (95.0-100.0); Oxyhemoglobin 96.5 % THb (90.0-100.0); PCO2 ABG 31.6 mmHg (35.0-45.0); PO2 ABG 103.6 mmHg (80.0-100.0); PO2 FiO2 Ratio Arterial Blood 1.73 %; Reduced Hemoglobin 2.8 %THb (0-5.0); Site Drawn RIGHT RADIAL; pH ABG 7.501 (7.350-7.450)
[2023-01-19] MEDS: HEPARIN SOD/D5W 100 UNITS/ML 25,000 UNITS/250 ML BAG 15 UNITS IV CONT (10:41)
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
[2023-01-19 11:10] LABS: NT Pro B Type Natriuretic Pept 1460 pg/mL (19.9-100)
[2023-01-19 12:17] LABS: Procalcitonin 3.9 ng/mL
[2023-01-19 13:20] LABS: Lactic Acid Reflex 1.4 mmol/L (0.7-2.0)
[2023-01-19 13:21] LABS: Anion Gap 4 mmol/L (8-16); Blood Urea Nitrogen 46 mg/dL (9-20); Calcium 8.8 mg/dL (8.4-10.2); Carbon Dioxide 28 mmol/L (22-30); Chloride 106 mmol/L (98-107); Estimated CRCL calculation 64 ml/min; Estimated Glomerular Filt Rate > 60; Glucose 160 mg/dL (65-110); Potassium 5.1 mmol/L (3.4-5.0); Sodium 138 mmol/L (137-145)
[2023-01-19 16:52] LABS: Partial Thromboplastin Time 61.5 SECONDS (22.3-36.8)
[2023-01-19] MEDS: ACETAMINOPHEN 650 MG SUPPOSITORY RECTAL (17:15)
[2023-01-19 23:49] LABS: Partial Thromboplastin Time 121.8 SECONDS (22.3-36.8)
[2023-01-20] VITALS (16 sets, daily range): BP systolic 107–134; BP diastolic 64–89; PULSE 93–122; RESP 20–30; TEMP 36.8–38.9; O2SAT 94–100; BMI 25.9
[2023-01-20 01:20] LABS: NT Pro B Type Natriuretic Pept 1390 pg/mL (19.9-100)
[2023-01-20] MEDS: HEPARIN SOD/D5W 100 UNITS/ML 25,000 UNITS/250 ML BAG 15 UNITS IV CONT ×2 (02:38→12:27)
[2023-01-20 04:56] LABS: Alveolar/Arterial O2 Gradient 394.7 mmHg; Base Excess ABG 0.2 mEq/l (+/-2.0); Device HIGH FLOW NASAL CANN; Fractional Inspired Oxygen 70 %; HCO3 ABG 22.5 mEq/l (22.0-26.0); Modified Allen's Test Pass; Oxygen Content ABG 20.7 %vol (16.0-22.0); Oxygen Saturation ABG 95.6 % (95.0-100.0); Oxyhemoglobin 93.8 % THb (90.0-100.0); PCO2 ABG 30.8 mmHg (35.0-45.0); PO2 ABG 71.3 mmHg (80.0-100.0); PO2 FiO2 Ratio Arterial Blood 1.02 %; Site Drawn RIGHT RADIAL; Total Hemoglobin 15.7 g/dL (12.0-18.0); pH ABG 7.482 (7.350-7.450)
[2023-01-20 06:39] LABS: Hematocrit 30.8 % (42.0-52.0); Hemoglobin 9.8 g/dL (14.0-18.0); Mean Corpuscular HGB Conc 31.8 g/dl (32-36); Mean Corpuscular Hemoglobin 31.8 pg (26-34); Mean Platelet Volume 9.7 fl (7.4-10.4); Platelet Count Result 157 k/mm3 (150-375); Red Blood Count 3.08 M/mm3 (4.6-6.20); Red Cell Distribution Width 13.9 % (11.5-14.5); White Blood Count 15.1 K/mm3 (4.5-10.0)
[2023-01-20 06:45] LABS: Partial Thromboplastin Time 84.8 SECONDS (22.3-36.8)
[2023-01-20 06:57] LABS: Alanine Aminotransferase 20 U/L (6-50); Albumin Level 2.6 g/dL (3.5-5.1); Alkaline Phosphatase 61 U/L (38-126); Anion Gap 5 mmol/L (8-16); Aspartate Amino Transferase 36 U/L (17-59); Bilirubin,Total 0.6 mg/dL (0.2-1.3); Blood Urea Nitrogen 31 mg/dL (9-20); Calcium 8.5 mg/dL (8.4-10.2); Carbon Dioxide 28 mmol/L (22-30); Chloride 109 mmol/L (98-107); Estimated CRCL calculation 69 ml/min; Estimated Glomerular Filt Rate > 60; Glucose 111 mg/dL (65-110); Magnesium 2.5 mg/dL (1.6-2.3); Sodium 142 mmol/L (137-145)
[2023-01-20 06:59] LABS: CRP 23.6 mg/dL (<1.0)
[2023-01-20 07:34] LABS: Band Neutrophils Percent 13 % (0-6); Hypochromasia 1+ (NORMAL); Lymphocytes Absolute Manual 1.35 K/mm3 (1.1-4.5); Monocytes Absolute Manual 1.05 K/mm3 (0.1-0.90); Monocytes Percent Manual 7 % (3-9); Myelocytes Percent 3 %; Neutrophils Absolute Manual 12.23 K/mm3 (1.3-6.7); Neutrophils Percent Manual 68 % (46-73); Platelet Estimate Adequate (Adequate); Schistocytes None Seen (NORMAL); Total Cells Counted 100
--- NOTE | 2023-01-20 09:03 | PM.PNPUL ---
Progress Note: A&P Assessment and Plan (1) Left lower lobe pneumonia: Code(s): J18.9 - Pneumonia, unspecified organism Status: Acute Assessment and Plan: Patient presented with altered mental status, fever, shortness of breath, hypotension, hypoxemia, white blood cell 17.4, lactic acid 3.1, acute kidney injury, CRP 25.4, chest x-ray with left hilar and lower lobe infiltrate and a CT scan of the abdomen that showed a left lower lobe infiltrate consistent with pneumonia. Patient also has CT evidence of cystitis and bilateral lower extremity DVTs and the right common femoral DVT was present and then absent at the end of the study suggesting PE. patient with treated with IV fluids and repeat lactic acid was 2.1. patient has hypoxemic but no hypercarbic respiratory failure with a blood gas of 7.// Patient's Covid, influenza and RSV RT PCR studies are negative. Blood cultures are negative to date, urine Legionella, mycoplasma IgM and urine pneumococcal studies are pending. procalcitonin is pending 01/19/23: The patient was initially started on vancomycin, cefepime and azithromycin on 01/18 and cefepime was discontinued and imipenem started on 01/19. Plan: Currently the patient remains tachycardic with a blood pressure of 98/69 on LR at 100. White blood cell count is increased to 20.4 and creatinine has improved from 3.50 to 1.50. I will order repeat lactic acid and CXR. Agree with current antibiotics, vancomycin, day 2, azithromycin day 2, imipenem day 1. Repeat lactic acid was 1.4, repeat BNP was 1460, chest x-ray later in the day demonstrated improved left infiltrate and mild right lower lobe infiltrate. Procalcitonin was high at 3.9. patient had a fever from 12 noon through midnight. 5/4 ? Patient was on 8 L nasal cannula overnight. The patient is more awake today. He was able to tell me his name, told me he lived in [place], did not know his birthday, told me he felt like he has been run through the washing machine . 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 Temperature 37.5?, heart rate was 110, blood pressure 105/68 on LR at 100. White blood cell count 15.1, creatinine 1.10, BNP 1390, CRP 23.6, ABG on 10 L nasal cannula 7.. PTT is 84.8. Heparin is on hold since 5:00 a.m. for LP this morning. Plan: overall mental status, blood pressure, tachycardia, tachypnea, hypoxemia and leukocytosis have improved with treatment for pneumonia and PE. Continue vancomycin, day 3 and azithromycin, day 3, and imipenem day 2. Discussed with Dr. Cantor Will follow with you (2) Acute respiratory failure with hypoxia: Code(s): J96.01 - Acute respiratory failure with hypoxia Status: Acute Assessment and Plan: etiology of the patient's acute hypoxemic respiratory failure include pneumonia and or cystitis with sepsis and possible PE. There is no evidence of hypercarbic respiratory failure and agree with supplemental oxygen to maintain saturations greater than 90%. 01/20 Currently was on 8 L nasal cannula saturation 99%. I turned the patient to 4 L nasal cannula saturations were 96%. I turned him to 2 L nasal cannula and his saturations were 95%. I turned to room air and his saturations were 90% after 5 minutes I placed him back on 2 L nasal cannula. (3) Deep vein thrombosis (DVT) of both lower extremities: Code(s): I82.403 - Acute embolism and thrombosis of unspecified deep veins of lower extremity, bilateral Status: Acute Assessment and Plan: Patient with bilateral lower extremity DVTs and the right common femoral DVT was present and then absent at the end of the study suggesting PE. I did speak with the respiratory technician in the room during the study and there is no clinical change in the patient's condition throughout the study. He remained tachypneic and tachycardic throughout the study. Patient originally had no EKG evidence of right heart strain, remains tachycard
--- NOTE | 2023-01-20 12:06 | PM.IMPN ---
Progress Note: A&P Assessment and Plan (1) Severe sepsis: Code(s): A41.9 - Sepsis, unspecified organism; R65.20 - Severe sepsis without septic shock Status: Acute Assessment and Plan: Patient presents with tachypnea, tachycardia, leukocytosis, hypotension, and lactic acidosis. This is in the setting of left lower lobe pneumonia. Continue broad-spectrum antibiotics. White blood cell count improved. Spoke with family member and no LP will be performed. (2) Left lower lobe pneumonia: Code(s): J18.9 - Pneumonia, unspecified organism Status: Acute Assessment and Plan: CT abdomen pelvis revealing lower lobe pneumonia. Continue broad-spectrum antibiotic. Respiratory status improved. Appreciate Pulmonary help (3) Altered mental status: Code(s): R41.82 - Altered mental status, unspecified Status: Acute Assessment and Plan: Brain CT did not show any acute intracranial process. Altered mental status is likely due to severe sepsis, electrolyte abnormalities, and acute kidney injury. Family does not want lumbar puncture. Low suspicion of meningitis. Likely encephalopathic from sepsis and pneumonia. Other consideration include psychiatric issues. (4) Acute respiratory failure with hypoxia: Code(s): J96.01 - Acute respiratory failure with hypoxia Status: Acute Assessment and Plan: See plan above (5) Deep vein thrombosis (DVT) of both lower extremities: Code(s): I82.403 - Acute embolism and thrombosis of unspecified deep veins of lower extremity, bilateral Status: Acute Assessment and Plan: Continue heparin. (6) Acute kidney injury: Code(s): N17.9 - Acute kidney failure, unspecified Status: Acute Assessment and Plan: Continue fluids and monitor. (7) Hyperkalemia: Code(s): E87.5 - Hyperkalemia Status: Acute Assessment and Plan: Monitor (8) Fecal impaction: Code(s): K56.41 - Fecal impaction Status: Acute Assessment and Plan: Suppository ordered Monitor (9) Paranoid schizophrenia: Code(s): F20.0 - Paranoid schizophrenia Status: Acute Assessment and Plan: Continue home medications (10) Pulmonary embolism: Code(s): I26.99 - Other pulmonary embolism without acute cor pulmonale Status: Acute Assessment and Plan: Likely, will get CTA tomorrow Plan Will have bedside swallow evaluation Subjective Date/time seen: 05/04/23 12:06 Interval history: More alert today. Still not answering questions. Exam Narrative: GENERAL: uncomfortable, acute distress HENMT: dry mucous membranes EYES: nonicteric NECK: no lymphadenopathy RESPIRATORY: clear to auscultation, paroxysmal respirations, tachypneic CARDIO: tachycardia, regular rhythm GI: soft, nontender, bowel sounds present : urinary catheter tubing patent and draining SKIN: no rashes EXTREMITIES: no edema, redness or tenderness Objective Data Vital Signs Vital Signs: Vital Signs - 24 hr 01/19/23 12:46 01/19/23 14:26 01/19/23 16:00 Temperature 101.6 F H 102.2 F H Pulse Rate 126 H 130 H Respiratory Rate 35 H 36 H Blood Pressure 98/74 L 100/64 110/72 Pulse Oximetry 98 97 Oxygen Delivery Oxygen Flow Rate 01/19/23 17:15 01/19/23 17:20 01/19/23 18:51 Temperature 101.5 F H 101.5 F H 102.3 F H Pulse Rate Respiratory Rate Blood Pressure Pulse Oximetry Oxygen Delivery Oxygen Flow Rate 01/19/23 19:52 01/19/23 14:10 01/19/23 16:00 Temperature 98.8 F Pulse Rate 128 H Respiratory Rate 30 H Blood Pressure 102/68 Pulse Oximetry 98 97 98 Oxygen Delivery High Flow Nasal Cannula High Flow Nasal Cannula Oxygen Flow Rate 10 10 01/19/23 16:00 01/19/23 14:20 01/19/23 20:00 Temperature Pulse Rate 131 H 117 H 127 H Respiratory Rate Blood Pressure Pulse Oxi
[2023-01-20] MEDS: LACTATED RINGERS 1,000 ML 100 ML IV CONT (12:26)
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
[2023-01-20 13:02] LABS: Partial Thromboplastin Time 34.1 SECONDS (22.3-36.8)
[2023-01-20] MEDS: HEPARIN SODIUM 5,000 UNITS/ML VIAL 6500 UNITS IV PUSH (13:30)
--- NOTE | 2023-01-20 16:03 | PCSTNOTE ---
Please refer to the Bedside Swallow Evaluation in the EMR. Please note, silent aspiration cannot be ruled out at bedside.
[2023-01-20] MEDS: BISACODYL 10 MG SUPPOSITORY RECTAL (17:38)
--- NOTE | 2023-01-20 17:50 | PC.NURSE ---
Dr. Cantor advised to disimpact pt digitally if needed when giving suppository. Stool felt and partially removed. Suppository administered. Dr. Cantor notified. Advised to monitor for bowel movement. Will reassess tomorrow.
[2023-01-20 20:11] LABS: Partial Thromboplastin Time 136.1 SECONDS (22.3-36.8)
[2023-01-21] VITALS (10 sets, daily range): BP systolic 97–119; BP diastolic 45–80; PULSE 94–106; RESP 16–22; TEMP 36.6–37.2; O2SAT 93–100
[2023-01-21] MEDS: HEPARIN SOD/D5W 100 UNITS/ML 25,000 UNITS/250 ML BAG 16 UNITS IV CONT ×2 (00:06→16:48)
[2023-01-21] MEDS: LACTATED RINGERS 1,000 ML 100 ML IV CONT ×3 (01:34→15:21)
[2023-01-21 04:41] LABS: Estimated CRCL calculation 93 ml/min; Estimated Glomerular Filt Rate > 60
[2023-01-21 04:44] LABS: Partial Thromboplastin Time 103.2 SECONDS (22.3-36.8)
[2023-01-21 08:35] LABS: Hematocrit 30.1 % (42.0-52.0); Hemoglobin 9.4 g/dL (14.0-18.0); Mean Corpuscular HGB Conc 31.2 g/dl (32-36); Mean Corpuscular Hemoglobin 32.1 pg (26-34); Mean Corpuscular Volume 102.7 fl (80-100); Mean Platelet Volume 9.6 fl (7.4-10.4); Platelet Count Result 170 k/mm3 (150-375); Red Blood Count 2.93 M/mm3 (4.6-6.20); Red Cell Distribution Width 13.9 % (11.5-14.5); White Blood Count 14.8 K/mm3 (4.5-10.0)
[2023-01-21 08:59] LABS: Band Neutrophils Percent 4 % (0-6); Lymphocytes Absolute Manual 2.36 K/mm3 (1.1-4.5); Lymphocytes Percent Manual 16 % (18-44); Monocytes Absolute Manual 0.74 K/mm3 (0.1-0.90); Monocytes Percent Manual 5 % (3-9); Neutrophils Absolute Manual 11.69 K/mm3 (1.3-6.7); Neutrophils Percent Manual 75 % (46-73); Platelet Estimate Adequate (Adequate); Total Cells Counted 100
[2023-01-21 09:00] LABS: Schistocytes None Seen (NORMAL)
--- NOTE | 2023-01-21 10:08 | PM.PNPUL ---
Progress Note: A&P Assessment and Plan (1) Left lower lobe pneumonia: Code(s): J18.9 - Pneumonia, unspecified organism Status: Acute Assessment and Plan: Patient presented with altered mental status, fever, shortness of breath, hypotension, hypoxemia, white blood cell 17.4, lactic acid 3.1, acute kidney injury, CRP 25.4, chest x-ray with left hilar and lower lobe infiltrate and a CT scan of the abdomen that showed a left lower lobe infiltrate consistent with pneumonia. Patient also has CT evidence of cystitis and bilateral lower extremity DVTs and the right common femoral DVT was present and then absent at the end of the study suggesting PE. patient with treated with IV fluids and repeat lactic acid was 2.1. patient has hypoxemic but no hypercarbic respiratory failure with a blood gas of 7.// Patient's Covid, influenza and RSV RT PCR studies are negative. Blood cultures are negative to date, urine Legionella, mycoplasma IgM and urine pneumococcal studies are pending. procalcitonin is pending 01/19/23: The patient was initially started on vancomycin, cefepime and azithromycin on 01/18 and cefepime was discontinued and imipenem started on 01/19. Plan: Currently the patient remains tachycardic with a blood pressure of 98/69 on LR at 100. White blood cell count is increased to 20.4 and creatinine has improved from 3.50 to 1.50. I will order repeat lactic acid and CXR. Agree with current antibiotics, vancomycin, day 2, azithromycin day 2, imipenem day 1. Repeat lactic acid was 1.4, repeat BNP was 1460, chest x-ray later in the day demonstrated improved left infiltrate and mild right lower lobe infiltrate. Procalcitonin was high at 3.9. patient had a fever from 12 noon through midnight. 5/4 ? Patient was on 8 L nasal cannula overnight. The patient is more awake today. He was able to tell me his name, told me he lived in [place], did not know his birthday, told me he felt like he has been run through the washing machine . 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 Temperature 37.5?, heart rate was 110, blood pressure 105/68 on LR at 100. White blood cell count 15.1, creatinine 1.10, BNP 1390, CRP 23.6, ABG on 10 L nasal cannula 7.. PTT is 84.8. Heparin is on hold since 5:00 a.m. for LP this morning. Plan: overall mental status, blood pressure, tachycardia, tachypnea, hypoxemia and leukocytosis have improved with treatment for pneumonia and PE. Continue vancomycin, day 3 and azithromycin, day 3, and imipenem day 2. 01/21 Patient wore 2 L nasal cannula overnight. I woke the patient up and he said that he felt fine. He is poorly communicative. He was able to ceo na and wiggle toes to verbal commands. White blood cell count is 14.8, creatinine is 0.8, he is afebrile. Heart rate is 94 and blood pressure is 119/64. chest x-ray with improving bibasilar interstitial infiltrates. Plan: Afebrile with improving white count and chest x-ray. Continue vancomycin, day 4 and azithromycin, day 4, and imipenem day 3. Will follow with you (2) Acute respiratory failure with hypoxia: Code(s): J96.01 - Acute respiratory failure with hypoxia Status: Acute Assessment and Plan: etiology of the patient's acute hypoxemic respiratory failure include pneumonia and or cystitis with sepsis and possible PE. There is no evidence of hypercarbic respiratory failure and agree with supplemental oxygen to maintain saturations greater than 90%. 01/20 Currently was on 8 L nasal cannula saturation 99%. I turned the patient to 4 L nasal cannula saturations were 96%. I turned him to 2 L nasal cannula and his saturations were 95%. I turned to room air and his saturations were 90% after 5 minutes I placed him back on 2 L nasal cannula. 01/21 01/21 Patient wore 2 L nasal cannula overnight. When I walked into the room the patient was sleeping and saturations were 98%. I turned him to room air. He had repeate
[2023-01-21] MEDS: polyethylene glycoL 3350 17 GM POWD.PACK PO (10:11)
[2023-01-21 11:14] LABS: Partial Thromboplastin Time 89.5 SECONDS (22.3-36.8)
--- NOTE | 2023-01-21 11:39 | PM.IMPN ---
Progress Note: A&P Assessment and Plan (1) Severe sepsis: Code(s): A41.9 - Sepsis, unspecified organism; R65.20 - Severe sepsis without septic shock Status: Acute Assessment and Plan: Patient presents with tachypnea, tachycardia, leukocytosis, hypotension, and lactic acidosis. This is in the setting of left lower lobe pneumonia. Continue broad-spectrum antibiotics. White blood cell count improved. Spoke with family member and no LP will not be performed. (2) Left lower lobe pneumonia: Code(s): J18.9 - Pneumonia, unspecified organism Status: Acute Assessment and Plan: CT abdomen pelvis revealing lower lobe pneumonia. Continue broad-spectrum antibiotic. Respiratory status improved. Appreciate Pulmonary help (3) Altered mental status: Code(s): R41.82 - Altered mental status, unspecified Status: Acute Assessment and Plan: Brain CT did not show any acute intracranial process. Altered mental status is likely due to severe sepsis, electrolyte abnormalities, and acute kidney injury. Family does not want lumbar puncture. Low suspicion of meningitis. Likely encephalopathic from sepsis and pneumonia. Other consideration include psychiatric issues. (4) Acute respiratory failure with hypoxia: Code(s): J96.01 - Acute respiratory failure with hypoxia Status: Acute Assessment and Plan: See plan above (5) Deep vein thrombosis (DVT) of both lower extremities: Code(s): I82.403 - Acute embolism and thrombosis of unspecified deep veins of lower extremity, bilateral Status: Acute Assessment and Plan: Continue heparin. (6) Acute kidney injury: Code(s): N17.9 - Acute kidney failure, unspecified Status: Acute Assessment and Plan: Continue fluids and monitor. (7) Hyperkalemia: Code(s): E87.5 - Hyperkalemia Status: Acute Assessment and Plan: Monitor (8) Fecal impaction: Code(s): K56.41 - Fecal impaction Status: Acute Assessment and Plan: Suppository ordered Monitor (9) Paranoid schizophrenia: Code(s): F20.0 - Paranoid schizophrenia Status: Acute Assessment and Plan: Continue home medications (10) Pulmonary embolism: Code(s): I26.99 - Other pulmonary embolism without acute cor pulmonale Status: Acute Assessment and Plan: Likely, will get CTA today Plan Will have bedside swallow evaluation Subjective Date/time seen: 01/21/23 11:39 Interval history: Patient is much more alert. Afebrile. Breathing okay. Currently on nasal cannula. Exam Narrative: GENERAL: uncomfortable, acute distress HENMT: dry mucous membranes EYES: nonicteric NECK: no lymphadenopathy RESPIRATORY: clear to auscultation, paroxysmal respirations, tachypneic CARDIO: tachycardia, regular rhythm GI: soft, nontender, bowel sounds present : urinary catheter tubing patent and draining SKIN: no rashes EXTREMITIES: no edema, redness or tenderness Objective Data Vital Signs Vital Signs: Vital Signs - 24 hr 01/20/23 12:00 01/20/23 12:00 01/20/23 14:00 Temperature 99.6 F Pulse Rate 102 H 99 105 H Respiratory Rate 26 H Blood Pressure 115/69 Pulse Oximetry 95 Oxygen Delivery Oxygen Flow Rate 01/20/23 16:00 01/20/23 16:00 01/20/23 18:00 Temperature 99.5 F Pulse Rate 110 H 107 H 109 H Respiratory Rate 28 H Blood Pressure 122/71 Pulse Oximetry 96 Oxygen Delivery Oxygen Flow Rate 01/20/23 12:00 01/20/23 16:00 01/20/23 20:00 Temperature 99.2 F Pulse Rate 108 H Respiratory Rate 24 H Blood Pressure 107/65 Pulse Oximetry 96 96 96 Oxygen Delivery High Flow Nasal Cannula High Flow Nasal Cannula Oxygen Flow Rate 2 2 01/20/23 20:00 01/20/23 20:00 01/20/23 22:00 Temperature Pulse Rate 104 H 104 H 93 Respiratory Rate 24 H Blood Pressure
[2023-01-21 19:50] LABS: Partial Thromboplastin Time 97.3 SECONDS (22.3-36.8)
[2023-01-21] MEDS: SENNA/DOCUSATE SODIUM TABLET 1 TAB PO (22:33)
[2023-01-21 23:12] LABS: Pneumococcal Antigen Urine Not Detected (Not Detected)
[2023-01-22] VITALS (17 sets, daily range): BP systolic 114–157; BP diastolic 69–79; PULSE 87–106; RESP 20; TEMP 36.3–37.1; O2SAT 94–99
[2023-01-22] MEDS: LACTATED RINGERS 1,000 ML 100 ML IV CONT ×2 (03:17→17:03)
[2023-01-22 03:33] LABS: Partial Thromboplastin Time 76.1 SECONDS (22.3-36.8)
[2023-01-22 08:15] LABS: Free T4 Free Thyroxine 2.19 ng/mL (0.78-2.19)
--- NOTE | 2023-01-22 09:53 | PM.PNPUL ---
Progress Note: A&P Assessment and Plan (1) Left lower lobe pneumonia: Code(s): J18.9 - Pneumonia, unspecified organism Status: Acute Assessment and Plan: Patient presented with altered mental status, fever, shortness of breath, hypotension, hypoxemia, white blood cell 17.4, lactic acid 3.1, acute kidney injury, CRP 25.4, chest x-ray with left hilar and lower lobe infiltrate and a CT scan of the abdomen that showed a left lower lobe infiltrate consistent with pneumonia. Patient also has CT evidence of cystitis and bilateral lower extremity DVTs and the right common femoral DVT was present and then absent at the end of the study suggesting PE. patient with treated with IV fluids and repeat lactic acid was 2.1. patient has hypoxemic but no hypercarbic respiratory failure with a blood gas of 7.// Patient's Covid, influenza and RSV RT PCR studies are negative. Blood cultures are negative to date, urine Legionella, mycoplasma IgM and urine pneumococcal studies are pending. procalcitonin is pending 01/19/23: The patient was initially started on vancomycin, cefepime and azithromycin on 01/18 and cefepime was discontinued and imipenem started on 01/19. Plan: Currently the patient remains tachycardic with a blood pressure of 98/69 on LR at 100. White blood cell count is increased to 20.4 and creatinine has improved from 3.50 to 1.50. I will order repeat lactic acid and CXR. Agree with current antibiotics, vancomycin, day 2, azithromycin day 2, imipenem day 1. Repeat lactic acid was 1.4, repeat BNP was 1460, chest x-ray later in the day demonstrated improved left infiltrate and mild right lower lobe infiltrate. Procalcitonin was high at 3.9. patient had a fever from 12 noon through midnight. 5/4 ? Patient was on 8 L nasal cannula overnight. The patient is more awake today. He was able to tell me his name, told me he lived in [place], did not know his birthday, told me he felt like he has been run through the washing machine . 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 Temperature 37.5?, heart rate was 110, blood pressure 105/68 on LR at 100. White blood cell count 15.1, creatinine 1.10, BNP 1390, CRP 23.6, ABG on 10 L nasal cannula 7.. PTT is 84.8. Heparin is on hold since 5:00 a.m. for LP this morning. Plan: overall mental status, blood pressure, tachycardia, tachypnea, hypoxemia and leukocytosis have improved with treatment for pneumonia and PE. Continue vancomycin, day 3 and azithromycin, day 3, and imipenem day 2. 01/21 Patient wore 2 L nasal cannula overnight. I woke the patient up and he said that he felt fine. He is poorly communicative. 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 White blood cell count is 14.8, creatinine is 0.8, he is afebrile. Heart rate is 94 and blood pressure is 119/64. chest x-ray with improving bibasilar interstitial infiltrates. Plan: Afebrile with improving white count and chest x-ray. Continue vancomycin, day 4 and azithromycin, day 4, and imipenem day 3. 01/22 Patient is more awake today and moving around in bed. Room air saturations are 97%. States he is breathing fine. Patient had an overnight oximetry on 2 L nasal cannula with a average saturation of 96%, low saturation 83%. Time with saturation less than or equal to 88% was 1 minutes. Oxygen desaturation index was 3.3. Patient is scheduled to have a modified barium swallow today. Plan: Afebrile, oxygenation improved. MRSA negative. Given patient's initial presentation with likely pneumonia and is clinical improvement will continue vancomycin, day 5, imipenem day 4, and azithromycin day 5. Planned to give vancomycin and imipenem for a total of 7 days. Patient is scheduled to have a modified barium swallow today. Will follow with you (2) Acute respiratory failure with hypoxia: Code(s): J96.01 - Acute respiratory failure with hypoxia Status: Acute Asses
[2023-01-22 10:00] LABS: Partial Thromboplastin Time 79.1 SECONDS (22.3-36.8)
[2023-01-22] MEDS: HEPARIN SOD/D5W 100 UNITS/ML 25,000 UNITS/250 ML BAG 16 UNITS IV CONT (12:10)
--- NOTE | 2023-01-22 12:13 | PM.IMPN ---
Progress Note: A&P Assessment and Plan (1) Severe sepsis: Code(s): A41.9 - Sepsis, unspecified organism; R65.20 - Severe sepsis without septic shock Status: Acute Assessment and Plan: Improved (2) Left lower lobe pneumonia: Code(s): J18.9 - Pneumonia, unspecified organism Status: Acute Assessment and Plan: Vancomycin has been resumed by Pulmonary. Nares negative for MRSA, cultures negative. respiratory status is improved (3) Altered mental status: Code(s): R41.82 - Altered mental status, unspecified Status: Acute Assessment and Plan: Improved, likely related to metabolic encephalopathy from sepsis and underlying psychiatric illness. (4) Acute respiratory failure with hypoxia: Code(s): J96.01 - Acute respiratory failure with hypoxia Status: Acute Assessment and Plan: See plan above (5) Deep vein thrombosis (DVT) of both lower extremities: Code(s): I82.403 - Acute embolism and thrombosis of unspecified deep veins of lower extremity, bilateral Status: Acute Assessment and Plan: Continue heparin. Ask Case Management to get recommendations for oral anticoagulant. (6) Acute kidney injury: Code(s): N17.9 - Acute kidney failure, unspecified Status: Acute Assessment and Plan: Continue fluids and monitor. (7) Hyperkalemia: Code(s): E87.5 - Hyperkalemia Status: Acute Assessment and Plan: Monitor (8) Fecal impaction: Code(s): K56.41 - Fecal impaction Status: Acute Assessment and Plan: Suppository ordered Monitor (9) Paranoid schizophrenia: Code(s): F20.0 - Paranoid schizophrenia Status: Acute Assessment and Plan: Continue home medications (10) Pulmonary embolism: Code(s): I26.99 - Other pulmonary embolism without acute cor pulmonale Status: Acute Assessment and Plan: CTA noted Continue heparin Await to see what oral anticoagulant is covered Plan Will have bedside swallow evaluation Subjective Date/time seen: 01/22/23 12:13 Interval history: Patient is breathing much better. Exam Narrative: GENERAL: uncomfortable, acute distress HENMT: dry mucous membranes EYES: nonicteric NECK: no lymphadenopathy RESPIRATORY: clear to auscultation, paroxysmal respirations, tachypneic CARDIO: tachycardia, regular rhythm GI: soft, nontender, bowel sounds present : urinary catheter tubing patent and draining SKIN: no rashes EXTREMITIES: no edema, redness or tenderness Objective Data Vital Signs Vital Signs: Vital Signs - 24 hr 01/21/23 16:00 01/21/23 20:00 01/21/23 22:30 Temperature 98 F 98.8 F 98.8 F Pulse Rate 101 H 100 100 Respiratory Rate 20 22 H 20 Blood Pressure 97/45 L 115/69 119/75 Pulse Oximetry 96 97 100 Oxygen Delivery Oxygen Flow Rate 01/21/23 20:00 01/21/23 20:00 01/21/23 22:00 Temperature Pulse Rate 102 H 98 Respiratory Rate Blood Pressure Pulse Oximetry 97 Oxygen Delivery Nasal Cannula Oxygen Flow Rate 2 01/22/23 00:00 01/22/23 02:00 01/22/23 00:00 Temperature Pulse Rate 104 H 105 H 104 H Respiratory Rate Blood Pressure Pulse Oximetry 99 Oxygen Delivery Nasal Cannula Oxygen Flow Rate 2 01/22/23 04:00 01/22/23 05:26 01/22/23 04:00 Temperature Pulse Rate 93 93 Respiratory Rate Blood Pressure Pulse Oximetry 94 99 Oxygen Delivery Nasal Cannula Nasal Cannula Oxygen Flow Rate 2 2 01/22/23 06:00 01/22/23 04:00 01/22/23 09:46 Temperature 98.5 F 98.7 F Pulse Rate 95 99 98 Respiratory Rate 20 20 Blood Pressure 114/69 122/72 Pulse Oximetry 97 97 Oxygen Delivery Oxygen Flow Rate Intake/Output Intake/Output: Intake & Output 01/19/23 01/20/23 01/21/23 01/22/23 23:59 23:59 23:59 23:59 Intake Total 3300 2950 3800 1450 Output Total 2755 1650 1050 [address] [place]
--- NOTE | 2023-01-22 13:33 | PCSTNOTE ---
Please refer to the Modified Barium Swallow Evaluation in the EMR.
[2023-01-22 20:36] LABS: Mycoplasma IgM Antibody Titer 36 U/mL (<770)
[2023-01-23] VITALS (13 sets, daily range): BP systolic 121–141; BP diastolic 65–98; PULSE 77–108; RESP 18–22; TEMP 36.1–37.3; O2SAT 93–99
[2023-01-23] MEDS: HEPARIN SOD/D5W 100 UNITS/ML 25,000 UNITS/250 ML BAG 16 UNITS IV CONT ×2 (01:10→18:08)
[2023-01-23 05:06] LABS: Partial Thromboplastin Time 105.7 SECONDS (22.3-36.8)
[2023-01-23] MEDS: LACTATED RINGERS 1,000 ML 100 ML IV CONT ×2 (06:19→21:37)
[2023-01-23 08:33] LABS: Basophils Absolute Auto 0.1 K/mm3 (0.0-0.1); Basophils Percent Auto 0.9 % (0.2-1.2); Eosinophils Absolute Auto 0.1 K/mm3 (0-0.3); Eosinophils Percent Auto 0.9 % (0-4.4); Hematocrit 28.8 % (42.0-52.0); Hemoglobin 9.1 g/dL (14.0-18.0); Immature Granulocyte Absolute 0.94 K/mm3 (0.00-0.031); Immature Granulocyte Percent A 8.6 % (0-0.5); Lymphocytes Absolute Auto 2.15 K/mm3 (0.9-3.2); Lymphocytes Percent Auto 19.6 % (18.3-44.2); Mean Corpuscular HGB Conc 31.6 g/dl (32-36); Mean Corpuscular Volume 101.4 fl (80-100); Monocytes Absolute Auto 1.4 K/mm3 (0.1-0.6); Monocytes Percent Auto 12.5 % (2.6-8.5); Neutrophils Absolute Auto 6.3 K/mm3 (1.3-6.7); Neutrophils Percent Auto 57.5 % (45.5-73.1); Nucleated Red Blood Cells Perc 0.3 % (0.0-0.2); Platelet Count Result 203 k/mm3 (150-375); Red Blood Count 2.84 M/mm3 (4.6-6.20); Red Cell Distribution Width 13.9 % (11.5-14.5)
[2023-01-23 08:41] LABS: Anion Gap 6 mmol/L (8-16); Blood Urea Nitrogen 15 mg/dL (9-20); Carbon Dioxide 24 mmol/L (22-30); Chloride 110 mmol/L (98-107); Estimated CRCL calculation 105 ml/min; Estimated Glomerular Filt Rate > 60; Glucose 92 mg/dL (65-110); Potassium 3.3 mmol/L (3.4-5.0); Sodium 140 mmol/L (137-145)
--- NOTE | 2023-01-23 09:41 | PM.PNPUL ---
Progress Note: A&P Assessment and Plan (1) Left lower lobe pneumonia: Code(s): J18.9 - Pneumonia, unspecified organism Status: Acute Assessment and Plan: Patient presented with altered mental status, fever, shortness of breath, hypotension, hypoxemia, white blood cell 17.4, lactic acid 3.1, acute kidney injury, CRP 25.4, chest x-ray with left hilar and lower lobe infiltrate and a CT scan of the abdomen that showed a left lower lobe infiltrate consistent with pneumonia. Patient also has CT evidence of cystitis and bilateral lower extremity DVTs and the right common femoral DVT was present and then absent at the end of the study suggesting PE. patient with treated with IV fluids and repeat lactic acid was 2.1. patient has hypoxemic but no hypercarbic respiratory failure with a blood gas of 7.// Patient's Covid, influenza and RSV RT PCR studies are negative. Blood cultures are negative to date, urine Legionella, mycoplasma IgM and urine pneumococcal studies are pending. procalcitonin is pending 01/19/23: The patient was initially started on vancomycin, cefepime and azithromycin on 01/18 and cefepime was discontinued and imipenem started on 01/19. Plan: Currently the patient remains tachycardic with a blood pressure of 98/69 on LR at 100. White blood cell count is increased to 20.4 and creatinine has improved from 3.50 to 1.50. I will order repeat lactic acid and CXR. Agree with current antibiotics, vancomycin, day 2, azithromycin day 2, imipenem day 1. Repeat lactic acid was 1.4, repeat BNP was 1460, chest x-ray later in the day demonstrated improved left infiltrate and mild right lower lobe infiltrate. Procalcitonin was high at 3.9. patient had a fever from 12 noon through midnight. 5/4 ? Patient was on 8 L nasal cannula overnight. The patient is more awake today. He was able to tell me his name, told me he lived in [place], did not know his birthday, told me he felt like he has been run through the washing machine . 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 Temperature 37.5?, heart rate was 110, blood pressure 105/68 on LR at 100. White blood cell count 15.1, creatinine 1.10, BNP 1390, CRP 23.6, ABG on 10 L nasal cannula 7.. PTT is 84.8. Heparin is on hold since 5:00 a.m. for LP this morning. Plan: overall mental status, blood pressure, tachycardia, tachypnea, hypoxemia and leukocytosis have improved with treatment for pneumonia and PE. Continue vancomycin, day 3 and azithromycin, day 3, and imipenem day 2. 01/21 Patient wore 2 L nasal cannula overnight. I woke the patient up and he said that he felt fine. He is poorly communicative. 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 White blood cell count is 14.8, creatinine is 0.8, he is afebrile. Heart rate is 94 and blood pressure is 119/64. chest x-ray with improving bibasilar interstitial infiltrates. Plan: Afebrile with improving white count and chest x-ray. Continue vancomycin, day 4 and azithromycin, day 4, and imipenem day 3. 01/22 Patient is more awake today and moving around in bed. Room air saturations are 97%. States he is breathing fine. Patient had an overnight oximetry on 2 L nasal cannula with a average saturation of 96%, low saturation 83%. Time with saturation less than or equal to 88% was 1 minutes. Oxygen desaturation index was 3.3. Patient is scheduled to have a modified barium swallow today. Plan: Afebrile, oxygenation improved. MRSA negative. Given patient's initial presentation with likely pneumonia and is clinical improvement will continue vancomycin, day 5, imipenem day 4, and azithromycin day 5. Planned to give vancomycin and imipenem for a total of 7 days. Patient is scheduled to have a modified barium swallow today. MBS later in day patient Disorganized swallowing poor pharyngeal pressure and squeeze reduced laryngeal elevation with mild laryngeal penetration across consisten
--- NOTE | 2023-01-23 10:28 | PM.IMPN ---
Progress Note: A&P Assessment and Plan (1) Severe sepsis: Code(s): A41.9 - Sepsis, unspecified organism; R65.20 - Severe sepsis without septic shock Status: Acute Assessment and Plan: Improved (2) Left lower lobe pneumonia: Code(s): J18.9 - Pneumonia, unspecified organism Status: Acute Assessment and Plan: Vancomycin has been resumed by Pulmonary. Nares negative for MRSA, cultures negative. respiratory status is improved (3) Altered mental status: Code(s): R41.82 - Altered mental status, unspecified Status: Acute Assessment and Plan: Improved, likely related to metabolic encephalopathy from sepsis and underlying psychiatric illness. (4) Acute respiratory failure with hypoxia: Code(s): J96.01 - Acute respiratory failure with hypoxia Status: Acute Assessment and Plan: See plan above (5) Deep vein thrombosis (DVT) of both lower extremities: Code(s): I82.403 - Acute embolism and thrombosis of unspecified deep veins of lower extremity, bilateral Status: Acute Assessment and Plan: Continue heparin. Ask Case Management to get recommendations for oral anticoagulant. (6) Acute kidney injury: Code(s): N17.9 - Acute kidney failure, unspecified Status: Acute Assessment and Plan: Continue fluids and monitor. (7) Hyperkalemia: Code(s): E87.5 - Hyperkalemia Status: Acute Assessment and Plan: Monitor (8) Fecal impaction: Code(s): K56.41 - Fecal impaction Status: Acute Assessment and Plan: Suppository ordered Monitor (9) Paranoid schizophrenia: Code(s): F20.0 - Paranoid schizophrenia Status: Acute Assessment and Plan: Continue home medications (10) Pulmonary embolism: Code(s): I26.99 - Other pulmonary embolism without acute cor pulmonale Status: Acute Assessment and Plan: CTA noted Continue heparin Await to see what oral anticoagulant is covered Plan Will have bedside swallow evaluation Subjective Date/time seen: 01/23/23 10:28 Interval history: Breathing better Exam Narrative: GENERAL: uncomfortable, acute distress HENMT: dry mucous membranes EYES: nonicteric NECK: no lymphadenopathy RESPIRATORY: clear to auscultation, paroxysmal respirations, tachypneic CARDIO: tachycardia, regular rhythm GI: soft, nontender, bowel sounds present : urinary catheter tubing patent and draining SKIN: no rashes EXTREMITIES: no edema, redness or tenderness Objective Data Vital Signs Vital Signs: Vital Signs - 24 hr 01/22/23 13:27 01/22/23 16:46 01/22/23 12:00 Temperature 98.6 F 98.6 F Pulse Rate 106 H 96 Respiratory Rate 20 20 Blood Pressure 157/79 H 128/78 Pulse Oximetry 97 97 Oxygen Delivery Room Air 01/22/23 16:00 01/22/23 12:00 01/22/23 14:00 Temperature Pulse Rate 99 98 Respiratory Rate Blood Pressure Pulse Oximetry Oxygen Delivery Room Air 01/22/23 16:00 01/22/23 18:00 01/22/23 20:00 Temperature 97.3 F L Pulse Rate 102 H 97 97 Respiratory Rate 20 Blood Pressure 125/72 Pulse Oximetry 96 Oxygen Delivery 01/22/23 23:29 01/22/23 20:00 01/23/23 00:00 Temperature 98.7 F Pulse Rate 94 Respiratory Rate 20 Blood Pressure 123/78 Pulse Oximetry 99 Oxygen Delivery Room Air Room Air 01/22/23 20:00 01/22/23 22:00 01/23/23 00:00 Temperature Pulse Rate 91 88 94 Respiratory Rate Blood Pressure Pulse Oximetry Oxygen Delivery 01/23/23 02:00 01/23/23 04:00 01/23/23 04:00 Temperature 98 F Pulse Rate 91 82 Respiratory Rate 20 Blood Pressure 121/65 Pulse Oximetry 98 Oxygen Delivery Room Air 01/23/23 04:00 01/23/23 06:00 01/23/23 08:00 Temperature Pulse Rate 94 93 Respiratory Rate Blood Pressure Pulse Oximetry Oxygen Delivery Room Air 01/23/23
[2023-01-23 11:00] LABS: Vancomycin Trough 7.3 ug/mL (10.0-20.0)
[2023-01-23] MEDS: APIXABAN 5 MG TABLET 10 MG PO (20:04)
[2023-01-23] MEDS: SENNA/DOCUSATE SODIUM TABLET 1 TAB PO (20:04)
[2023-01-24] VITALS (9 sets, daily range): BP systolic 92–131; BP diastolic 56–87; PULSE 61–99; RESP 16–22; TEMP 36.3–37.1; O2SAT 95–100
[2023-01-24 05:39] LABS: Partial Thromboplastin Time > 200.0 SECONDS (22.3-36.8)
[2023-01-24] MEDS: LACTATED RINGERS 1,000 ML 100 ML IV CONT (09:39)
--- NOTE | 2023-01-24 10:38 | PM.IMPN ---
Progress Note: A&P Assessment and Plan (1) Severe sepsis: Code(s): A41.9 - Sepsis, unspecified organism; R65.20 - Severe sepsis without septic shock Status: Acute Assessment and Plan: Improved (2) Left lower lobe pneumonia: Code(s): J18.9 - Pneumonia, unspecified organism Status: Acute Assessment and Plan: Vancomycin has been resumed by Pulmonary. Nares negative for MRSA, cultures negative. respiratory status is improved (3) Altered mental status: Code(s): R41.82 - Altered mental status, unspecified Status: Acute Assessment and Plan: Improved, likely related to metabolic encephalopathy from sepsis and underlying psychiatric illness. (4) Acute respiratory failure with hypoxia: Code(s): J96.01 - Acute respiratory failure with hypoxia Status: Acute Assessment and Plan: See plan above (5) Deep vein thrombosis (DVT) of both lower extremities: Code(s): I82.403 - Acute embolism and thrombosis of unspecified deep veins of lower extremity, bilateral Status: Acute Assessment and Plan: Continue heparin. Ask Case Management to get recommendations for oral anticoagulant. (6) Acute kidney injury: Code(s): N17.9 - Acute kidney failure, unspecified Status: Acute Assessment and Plan: Continue fluids and monitor. (7) Hyperkalemia: Code(s): E87.5 - Hyperkalemia Status: Acute Assessment and Plan: Monitor (8) Fecal impaction: Code(s): K56.41 - Fecal impaction Status: Acute Assessment and Plan: Suppository ordered Monitor (9) Paranoid schizophrenia: Code(s): F20.0 - Paranoid schizophrenia Status: Acute Assessment and Plan: Continue home medications (10) Pulmonary embolism: Code(s): I26.99 - Other pulmonary embolism without acute cor pulmonale Status: Acute Assessment and Plan: CTA noted Continue heparin Await to see what oral anticoagulant is covered Plan Will have bedside swallow evaluation Time Spent With Patient Time: Plan to have modified barium swallow Subjective Date/time seen: 01/24/23 10:38 Interval history: Feeling better, answering questions more appropriately. Exam Narrative: GENERAL: uncomfortable, acute distress HENMT: dry mucous membranes EYES: nonicteric NECK: no lymphadenopathy RESPIRATORY: clear to auscultation, paroxysmal respirations, tachypneic CARDIO: tachycardia, regular rhythm GI: soft, nontender, bowel sounds present : urinary catheter tubing patent and draining SKIN: no rashes EXTREMITIES: no edema, redness or tenderness Objective Data Vital Signs Vital Signs: Vital Signs - 24 hr 01/23/23 12:00 01/23/23 12:00 01/23/23 12:00 Temperature 98.1 F Pulse Rate 86 108 H Respiratory Rate 22 H Blood Pressure 125/98 H Pulse Oximetry 99 99 Oxygen Delivery Room Air 01/23/23 14:00 01/23/23 16:00 01/23/23 16:00 Temperature Pulse Rate 92 97 Respiratory Rate Blood Pressure Pulse Oximetry Oxygen Delivery Room Air 01/23/23 16:00 01/23/23 18:00 01/23/23 20:00 Temperature 97.8 F 97.0 F L Pulse Rate 80 82 90 Respiratory Rate 18 20 Blood Pressure 121/79 128/76 Pulse Oximetry 93 97 Oxygen Delivery 01/23/23 20:00 01/23/23 20:00 01/23/23 22:00 Temperature Pulse Rate 92 94 Respiratory Rate Blood Pressure Pulse Oximetry Oxygen Delivery Room Air 01/23/23 23:30 01/24/23 00:00 01/24/23 00:00 Temperature 98.9 F Pulse Rate 77 78 Respiratory Rate 20 Blood Pressure 127/68 Pulse Oximetry 99 Oxygen Delivery Room Air 01/24/23 02:00 01/24/23 04:00 01/24/23 04:00 Temperature Pulse Rate 94 61 Respiratory Rate Blood Pressure Pulse Oximetry Oxygen Delivery Room Air 01/24/23 04:00 01/24/23 06:00 01/24/23 07:57 Temperature 98.8 F 98 F Pulse Rate
[2023-01-24] MEDS: HEPARIN SOD/D5W 100 UNITS/ML 25,000 UNITS/250 ML BAG 14 UNITS IV CONT (11:51)
[2023-01-24 12:15] LABS: Partial Thromboplastin Time 68.8 SECONDS (22.3-36.8)
--- NOTE | 2023-01-24 12:29 | PC.NURSE ---
This patient, Josh Lo, was transferred to [ [id number]] on 01/24/23 at 1229. Personal belongings sent with patient. Report given to [WILLIAM Baldwin @ [phone] ]. Appropriate documentation sent with patient.
--- NOTE | 2023-01-24 12:58 | PC.NURSE ---
received pt on this floor from IMU at 1235.
[2023-01-24] MEDS: APIXABAN 5 MG TABLET 10 MG PO ×2 (13:10→21:36)
[2023-01-24] MEDS: MIDODRINE HCL 10 MG TABLET PO ×2 (13:10→16:20)
[2023-01-24] MEDS: BENZTROPINE MESYLATE 1 MG TABLET PO ×2 (13:11→21:36)
[2023-01-24] MEDS: risperiDONE 1 MG TABLET 3 MG PO ×2 (13:11→16:20)
[2023-01-24] MEDS: busPIRone HCL 5 MG TABLET 15 MG PO ×2 (13:11→16:21)
--- NOTE | 2023-01-24 14:00 | PCNFU ---
Nutrition Follow-Up Complete: Inadequate oral intake related to NPO as evidenced by no intake since admission. Goal:1. Diet to be advanced in the next 3 days. - Goal is met. Diet advanced today Pt current nutrition is Regular diet, minced & moist level 5. No intakes recorded yet. Nutrition recommendation: Ensure Compact BID for additional 220 kcals and 9 g protein each Last recorded weight is 78.2 kg. Bowel Motility: Last BM 01/21/23 Labs Reviewed: Hgb 9.1, Hct 28.8, K+ 3.3 Meds Noted: Miralax, vanco Skin:WNL Additional Notes: Pt had repeat MBSS today after being NPO for swallow. He is more alert now and cleared for level 5 minced & moist. No intakes recorded yet. Ordering Ensure Compact for additional nutrition. Agree with current orders Monitor diet advancement, weight status.
[2023-01-24] MEDS: ACETAMINOPHEN 325 MG TABLET 650 MG PO (14:31)
[2023-01-24] MEDS: FLUoxetine HCL 20 MG CAPSULE 40 MG PO (16:18)
[2023-01-24] MEDS: DIVALPROEX SODIUM ER 250 MG TAB.24H PO (16:22)
[2023-01-24] MEDS: DIVALPROEX SODIUM ER 500 MG TAB.24H PO (16:22)
[2023-01-24] MEDS: SENNA/DOCUSATE SODIUM TABLET 1 TAB PO (21:36)
[2023-01-25 00:07] LABS: Vancomycin Trough 14.3 ug/mL (10.0-20.0)
[2023-01-25 02:19] LABS: Legionella pneumophila Ag Ur Not Detected (Not Detected)
[2023-01-25] MEDS: LACTATED RINGERS 1,000 ML 100 ML IV CONT ×2 (03:43→14:58)
[2023-01-25 05:18] VITALS: BP 108/70; PULSE 89; RESP 20; TEMP 35.8; O2SAT 100
[2023-01-25] MEDS: busPIRone HCL 5 MG TABLET 15 MG PO ×3 (08:18→17:58)
[2023-01-25] MEDS: polyethylene glycoL 3350 17 GM POWD.PACK PO (08:18)
[2023-01-25] MEDS: risperiDONE 1 MG TABLET 3 MG PO ×3 (08:18→17:58)
[2023-01-25] MEDS: ASPIRIN 81 MG ENTERIC TABLET PO (08:18)
[2023-01-25] MEDS: MIDODRINE HCL 10 MG TABLET PO ×3 (08:18→17:58)
[2023-01-25] MEDS: CHOLECALCIFEROL 1,000 UNITS TABLET 2000 UNITS PO (08:19)
[2023-01-25] MEDS: APIXABAN 5 MG TABLET 10 MG PO ×2 (08:19→20:22)
[2023-01-25] MEDS: BENZTROPINE MESYLATE 1 MG TABLET PO ×2 (08:19→20:22)
[2023-01-25] MEDS: FLUoxetine HCL 20 MG CAPSULE 40 MG PO ×2 (08:20→17:57)
[2023-01-25] MEDS: POTASSIUM CHLORIDE 20 MEQ TABLET.ER PO (08:21)
[2023-01-25] MEDS: DIVALPROEX SODIUM ER 500 MG TAB.24H PO ×2 (08:21→17:58)
[2023-01-25] MEDS: ROSUVASTATIN 5 MG TABLET PO (08:22)
[2023-01-25] MEDS: FENOFIBRATE 160 MG TABLET PO (08:22)
[2023-01-25] MEDS: DIVALPROEX SODIUM ER 250 MG TAB.24H PO ×2 (08:22→17:58)
[2023-01-25] MEDS: PANTOPRAZOLE 40 MG TABLET PO (08:22)
--- NOTE | 2023-01-25 11:43 | PM.IMPN ---
Progress Note: A&P Assessment and Plan (1) Severe sepsis: Code(s): A41.9 - Sepsis, unspecified organism; R65.20 - Severe sepsis without septic shock Status: Acute Assessment and Plan: Improved (2) Left lower lobe pneumonia: Code(s): J18.9 - Pneumonia, unspecified organism Status: Acute Assessment and Plan: continue IV antibiotics for total of 10 days. Try to wean oxygen. Respiratory status is improving every day. (3) Altered mental status: Code(s): R41.82 - Altered mental status, unspecified Status: Acute Assessment and Plan: Improved, likely related to metabolic encephalopathy from sepsis and underlying psychiatric illness. (4) Acute respiratory failure with hypoxia: Code(s): J96.01 - Acute respiratory failure with hypoxia Status: Acute Assessment and Plan: See plan above (5) Deep vein thrombosis (DVT) of both lower extremities: Code(s): I82.403 - Acute embolism and thrombosis of unspecified deep veins of lower extremity, bilateral Status: Acute Assessment and Plan: Continue Eliquis (6) Acute kidney injury: Code(s): N17.9 - Acute kidney failure, unspecified Status: Acute Assessment and Plan: Continue fluids and monitor. (7) Hyperkalemia: Code(s): E87.5 - Hyperkalemia Status: Acute Assessment and Plan: Monitor (8) Fecal impaction: Code(s): K56.41 - Fecal impaction Status: Acute Assessment and Plan: Suppository ordered, enema ordered as well Monitor (9) Paranoid schizophrenia: Code(s): F20.0 - Paranoid schizophrenia Status: Acute Assessment and Plan: Continue home medications (10) Pulmonary embolism: Code(s): I26.99 - Other pulmonary embolism without acute cor pulmonale Status: Acute Assessment and Plan: CTA noted Continue heparin Await to see what oral anticoagulant is covered Subjective Date/time seen: 01/25/23 11:43 Interval history: respiratory status is much improved. Patient is more alert. Patient swallow eval has improved and he is already eating foods and taking his medication now. Overall significant improved Exam Narrative: GENERAL: uncomfortable, acute distress HENMT: dry mucous membranes EYES: nonicteric NECK: no lymphadenopathy RESPIRATORY: clear to auscultation, paroxysmal respirations, tachypneic CARDIO: tachycardia, regular rhythm GI: soft, nontender, bowel sounds present : urinary catheter tubing patent and draining SKIN: no rashes EXTREMITIES: no edema, redness or tenderness Objective Data Vital Signs Vital Signs: Vital Signs - 24 hr 01/24/23 12:45 01/24/23 21:15 01/24/23 20:00 Temperature 97.4 F L 97.4 F L Pulse Rate 83 95 Respiratory Rate 16 20 Blood Pressure 126/77 92/56 L Pulse Oximetry 99 95 Oxygen Delivery Room Air 01/25/23 05:18 Temperature 96.5 F L Pulse Rate 89 Respiratory Rate 20 Blood Pressure 108/70 Pulse Oximetry 100 Oxygen Delivery Intake/Output Intake/Output: Intake & Output 01/22/23 01/23/23 01/24/23 01/25/23 23:59 23:59 23:59 23:59 Intake Total 3150 3150 3659 350 Output Total 1300 1675 3800 400 Balance 1850 3405 -141 -31 Meds/Results Medications: Active Medications Generic Name Dose Route Start Last Admin Trade Name Gia PRN Reason Stop Dose Admin Acetaminophen 650 mg 01/24/23 12:25 01/24/23 14:31 Acetaminophen 325 Mg Tablet PO 650 mg Q6H PRN Administration Pain Apixaban 10 mg 01/23/23 09:00 01/25/23 08:19 Apixaban 5 Mg Tablet PO 10 mg Q12HR INDIRA Administration Aspirin 81 mg 01/25/23 09:00 01/25/23 08:18 Aspirin 81 Mg Enteric Tablet PO 81 mg DAILY INDIRA Administration Benztropine Mesylate 1 mg 01/24/23 13:00 01/25/23 08:19 Benztropine Mesylate 1 Mg Tablet PO 1 mg Q12HR INDIRA Administration Buspirone HCl
[2023-01-25 13:52] VITALS: BP 95/68; PULSE 77; RESP 20; TEMP 35.8; O2SAT 99
[2023-01-25 15:09] VITALS: BP 107/71; PULSE 78; RESP 20; TEMP 36.3; O2SAT 98
[2023-01-25] MEDS: SENNA/DOCUSATE SODIUM TABLET 1 TAB PO (20:22)
[2023-01-25 22:00] VITALS: BP 107/71; PULSE 73; RESP 18; TEMP 36.8; O2SAT 100
[2023-01-26] VITALS: O2SAT 98
[2023-01-26 06:00] VITALS: BP 104/66; PULSE 76; RESP 18; TEMP 36.2; O2SAT 98
[2023-01-26] MEDS: busPIRone HCL 5 MG TABLET 15 MG PO ×3 (09:16→16:55)
[2023-01-26] MEDS: CHOLECALCIFEROL 1,000 UNITS TABLET 2000 UNITS PO (09:16)
[2023-01-26] MEDS: risperiDONE 1 MG TABLET 3 MG PO ×3 (09:16→16:56)
[2023-01-26] MEDS: polyethylene glycoL 3350 17 GM POWD.PACK PO (09:17)
[2023-01-26] MEDS: FLUoxetine HCL 20 MG CAPSULE 40 MG PO ×2 (09:17→16:56)
[2023-01-26] MEDS: PANTOPRAZOLE 40 MG TABLET PO (09:17)
[2023-01-26] MEDS: DIVALPROEX SODIUM ER 500 MG TAB.24H PO ×2 (09:17→16:56)
[2023-01-26] MEDS: APIXABAN 5 MG TABLET 10 MG PO ×2 (09:17→21:28)
[2023-01-26] MEDS: MIDODRINE HCL 10 MG TABLET PO ×3 (09:17→16:55)
[2023-01-26] MEDS: BENZTROPINE MESYLATE 1 MG TABLET PO ×2 (09:18→21:28)
[2023-01-26] MEDS: ASPIRIN 81 MG ENTERIC TABLET PO (09:18)
[2023-01-26] MEDS: POTASSIUM CHLORIDE 20 MEQ TABLET.ER PO (09:18)
[2023-01-26] MEDS: FENOFIBRATE 160 MG TABLET PO (09:18)
[2023-01-26] MEDS: ROSUVASTATIN 5 MG TABLET PO (09:18)
[2023-01-26] MEDS: DIVALPROEX SODIUM ER 250 MG TAB.24H PO ×2 (09:18→16:55)
[2023-01-26 14:00] VITALS: BP 119/79; PULSE 87; RESP 14; TEMP 36.4; O2SAT 95
[2023-01-26] MEDS: LACTATED RINGERS 1,000 ML 100 ML IV CONT (16:57)
--- NOTE | 2023-01-26 17:41 | PM.IMPN ---
Progress Note: A&P Assessment and Plan (1) Severe sepsis: Code(s): A41.9 - Sepsis, unspecified organism; R65.20 - Severe sepsis without septic shock Status: Acute Assessment and Plan: Improved 01/26/2023 patient with left lower lobe pneumonia patient is being treated Zosyn, patient denies any cough or shortness of breath, patient's sister and nephews present in room, stated patient looking much better compared to when he arrived, will continue to monitor (2) Left lower lobe pneumonia: Code(s): J18.9 - Pneumonia, unspecified organism Status: Acute Assessment and Plan: continue IV antibiotics for total of 10 days. Try to wean oxygen. Respiratory status is improving every day. (3) Altered mental status: Code(s): R41.82 - Altered mental status, unspecified Status: Acute Assessment and Plan: Improved, likely related to metabolic encephalopathy from sepsis and underlying psychiatric illness. (4) Acute respiratory failure with hypoxia: Code(s): J96.01 - Acute respiratory failure with hypoxia Status: Acute Assessment and Plan: See plan above (5) Deep vein thrombosis (DVT) of both lower extremities: Code(s): I82.403 - Acute embolism and thrombosis of unspecified deep veins of lower extremity, bilateral Status: Acute Assessment and Plan: Continue Eliquis (6) Acute kidney injury: Code(s): N17.9 - Acute kidney failure, unspecified Status: Acute Assessment and Plan: Continue fluids and monitor. (7) Hyperkalemia: Code(s): E87.5 - Hyperkalemia Status: Acute Assessment and Plan: Monitor (8) Fecal impaction: Code(s): K56.41 - Fecal impaction Status: Acute Assessment and Plan: Suppository ordered, enema ordered as well Monitor (9) Paranoid schizophrenia: Code(s): F20.0 - Paranoid schizophrenia Status: Acute Assessment and Plan: Continue home medications (10) Pulmonary embolism: Code(s): I26.99 - Other pulmonary embolism without acute cor pulmonale Status: Acute Assessment and Plan: CTA noted Continue heparin Await to see what oral anticoagulant is covered Subjective Date/time seen: 01/26/23 17:41 Interval history: respiratory status is much improved. Patient is more alert. Patient swallow eval has improved and he is already eating foods and taking his medication now. Overall significant improved, 01/26/2023 patient with left lower lobe pneumonia patient is being treated Zosyn, patient denies any cough or shortness of breath, patient's sister and nephews present in room, stated patient looking much better compared to when he arrived, will continue to monitor Review of Systems Review of Systems: ROS unobtainable: Yes unobtainable due to mental status Constitutional: Constitutional: Reports no additional constitutional complaints Eyes: Eyes: Reports no additional eye complaints ENT: Reports system reviewed and no additional complaints, except as documented Cardiovascular: Cardiovascular: Reports no additional cardiovascular complaints Respiratory: Respiratory: Reports no additional respiratory complaints Gastrointestinal: Gastrointestinal: Reports no additional gastrointestinal complaints Musculoskeletal: Musculoskeletal: Reports no additional musculoskeletal complaints Neurologic: Reports system reviewed and no additional complaints, except as documented Psychiatric: Psychiatric: Reports no additional psychiatric complaints Endocrine: Endocrine: Reports no additional endocrine complaints Hematologic/Lymphatic: Hematologic/Lymphatic: Reports no additional hematologic/lymphatic complaints Allergic/Immunologic: Allergic/Immunologic: Reports no additional allergic/immunologic complaints Exam Narrative: Patient is comfortable, NAD HEENT: eyes are clear a
[2023-01-26 21:26] VITALS: BP 111/81; PULSE 77; RESP 18; TEMP 36.4; O2SAT 100
[2023-01-26] MEDS: AMOXICILLIN/CLAVULANATE K 875-125 MG TAB 1 TABLET PO (21:28)
[2023-01-26] MEDS: SENNA/DOCUSATE SODIUM TABLET 1 TAB PO (21:28)
[2023-01-27] MEDS: LIDOCAINE HCL 2% GEL UROJET 10 ML PKG MUCOUS MEM (03:43)
[2023-01-27 06:00] VITALS: BP 107/95; PULSE 96; RESP 18; TEMP 36.4; O2SAT 94
[2023-01-27] MEDS: LACTATED RINGERS 1,000 ML 100 ML IV CONT (06:17)
[2023-01-27] MEDS: FENOFIBRATE 160 MG TABLET PO (08:07)
[2023-01-27] MEDS: BENZTROPINE MESYLATE 1 MG TABLET PO ×2 (08:07→20:02)
[2023-01-27] MEDS: MIDODRINE HCL 10 MG TABLET PO ×3 (08:07→17:48)
[2023-01-27] MEDS: DIVALPROEX SODIUM ER 500 MG TAB.24H PO (08:08)
[2023-01-27] MEDS: PANTOPRAZOLE 40 MG TABLET PO (08:08)
[2023-01-27] MEDS: CHOLECALCIFEROL 1,000 UNITS TABLET 2000 UNITS PO (08:08)
[2023-01-27] MEDS: ASPIRIN 81 MG ENTERIC TABLET PO (08:08)
[2023-01-27] MEDS: risperiDONE 1 MG TABLET 3 MG PO ×3 (08:08→17:48)
[2023-01-27] MEDS: DIVALPROEX SODIUM ER 250 MG TAB.24H PO (08:08)
[2023-01-27] MEDS: ROSUVASTATIN 5 MG TABLET PO (08:08)
[2023-01-27] MEDS: FLUoxetine HCL 20 MG CAPSULE 40 MG PO ×2 (08:08→17:49)
[2023-01-27] MEDS: APIXABAN 5 MG TABLET 10 MG PO ×2 (08:08→20:01)
[2023-01-27] MEDS: POTASSIUM CHLORIDE 20 MEQ TABLET.ER PO (08:09)
[2023-01-27] MEDS: AMOXICILLIN/CLAVULANATE K 875-125 MG TAB 1 TABLET PO ×2 (08:09→20:02)
[2023-01-27] MEDS: busPIRone HCL 5 MG TABLET 15 MG PO ×3 (08:09→17:48)
[2023-01-27] MEDS: polyethylene glycoL 3350 17 GM POWD.PACK PO (08:12)
--- NOTE | 2023-01-27 08:29 | PCSTNOTE ---
Patient is being discharged from Speech Therapy as he passed his Modified Barium Swallow study, and with upright positioning, he exhibits no signs of aspiration. Dr. Pierre agreed to discharge this date.
--- NOTE | 2023-01-27 10:03 | PCNFU ---
Nutrition Follow-Up Complete: Inadequate oral intake related to NPO as evidenced by no intake since admission. Goal:Diet to be advanced in the next 3 days. Pt is meeting goal New Goal: PO intake greater than 50% of meals and supplements Pt current nutrition is Regular, level 5 minced and moist. Ensure compact BID. Nutrition recommendation: continue with current plan of care Last recorded weight is 82.9 kg - up from 79.8kg on admission Bowel Motility: No BM recorded Labs Reviewed:No recent Meds Noted: miralax, eliquis, KCL, protonix Skin: WNL Additional Notes: Pt continues on a minced and moist level 5 diet, intake improving. Ensure ordered BID. Continue to encourage intake of meals and supplements. Monitor intake, wt, labs. Follow up in 7 days.
[2023-01-27 14:00] VITALS: BP 108/61; PULSE 87; RESP 16; TEMP 36.3; O2SAT 96
--- NOTE | 2023-01-27 14:10 | PCPTNOTE ---
Nursing states patient is leaving at this time and does not need to be seen for physical therapy.
[2023-01-27 14:22] LABS: EDCOVIDSCREEN Negative (Negative)
--- NOTE | 2023-01-27 16:50 | WPDPN ---
Progress Note: A&P Assessment and Plan (1) Severe sepsis: Code(s): A41.9 - Sepsis, unspecified organism; R65.20 - Severe sepsis without septic shock Status: Acute Assessment and Plan: Improved 01/27/2023 interval history: patient with left lower lobe pneumonia patient is being treated Zosyn, patient denies any cough or shortness of breath, patient clinical symptoms were improved plan was to discharge the patient today however patient Palmer was removed and patient was unable to urinate, Palmer was reinserted and possibly had a scrotal trauma scrotum is quite enlarged ultrasound was ordered, will consult urologist for further recommendation, discussed with the ID pharmacist will stop the Zosyn and switch over patient to Augmentin to complete the 14 day course. (2) Left lower lobe pneumonia: Code(s): J18.9 - Pneumonia, unspecified organism Status: Acute Assessment and Plan: continue IV antibiotics for total of 10 days. Try to wean oxygen. Respiratory status is improving every day. (3) Altered mental status: Code(s): R41.82 - Altered mental status, unspecified Status: Acute Assessment and Plan: Improved, likely related to metabolic encephalopathy from sepsis and underlying psychiatric illness. (4) Acute respiratory failure with hypoxia: Code(s): J96.01 - Acute respiratory failure with hypoxia Status: Acute Assessment and Plan: See plan above (5) Deep vein thrombosis (DVT) of both lower extremities: Code(s): I82.403 - Acute embolism and thrombosis of unspecified deep veins of lower extremity, bilateral Status: Acute Assessment and Plan: Continue Eliquis (6) Acute kidney injury: Code(s): N17.9 - Acute kidney failure, unspecified Status: Acute Assessment and Plan: Continue fluids and monitor. (7) Hyperkalemia: Code(s): E87.5 - Hyperkalemia Status: Acute Assessment and Plan: Monitor (8) Fecal impaction: Code(s): K56.41 - Fecal impaction Status: Acute Assessment and Plan: Suppository ordered, enema ordered as well Monitor (9) Paranoid schizophrenia: Code(s): F20.0 - Paranoid schizophrenia Status: Acute Assessment and Plan: Continue home medications (10) Pulmonary embolism: Code(s): I26.99 - Other pulmonary embolism without acute cor pulmonale Status: Acute Assessment and Plan: CTA noted Continue heparin Await to see what oral anticoagulant is covered Subjective Date/time seen: 01/27/23 16:50 Interval history: respiratory status is much improved. Patient is more alert. Patient swallow eval has improved and he is already eating foods and taking his medication now. Overall significant improved, 01/27/2023 interval history: patient with left lower lobe pneumonia patient is being treated Zosyn, patient denies any cough or shortness of breath, patient clinical symptoms were improved plan was to discharge the patient today however patient Palmer was removed and patient was unable to urinate, Palmer was reinserted and possibly had a scrotal trauma scrotum is quite enlarged ultrasound was ordered, will consult urologist for further recommendation, discussed with the ID pharmacist will stop the Zosyn and switch over patient to Augmentin to complete the 14 day course. Review of Systems Constitutional: Constitutional: Reports no additional constitutional complaints Exam Narrative: Patient is comfortable, NAD HEENT: eyes are clear and none icteric LUNGS: Bilateral fair air entry with minimal rhonchi HEART: RR S1S2 ABD: BS+, Soft and nontender Lower extremities: no edema SKIN: nonjaundiced Neuro: grossly intact. Objective Data Vital Signs Vital Signs: Vital Signs - 24 hr 01/26/23 21:26 01/26/23 20:00 01/27/23 06:00 Temperature 97.6 F 97.5 F L Pulse Rate 77 96
[2023-01-27] MEDS: DIVALPROEX SODIUM SPRINKLE 125 MG CAP.DR 750 MG PO (18:51)
[2023-01-27] MEDS: SENNA/DOCUSATE SODIUM TABLET 1 TAB PO (20:02)
[2023-01-27 22:00] VITALS: BP 115/67; PULSE 86; RESP 16; TEMP 35.9; O2SAT 96
[2023-01-28 06:00] VITALS: BP 103/65; PULSE 85; RESP 16; TEMP 36.1; O2SAT 97
[2023-01-28 08:00] VITALS: PULSE 85; RESP 16; O2SAT 97
[2023-01-28] MEDS: risperiDONE 1 MG TABLET 3 MG PO ×3 (08:27→17:43)
[2023-01-28] MEDS: ROSUVASTATIN 5 MG TABLET PO (08:28)
[2023-01-28] MEDS: FENOFIBRATE 160 MG TABLET PO (08:28)
[2023-01-28] MEDS: MIDODRINE HCL 10 MG TABLET PO ×3 (08:29→17:43)
[2023-01-28] MEDS: busPIRone HCL 5 MG TABLET 15 MG PO ×3 (08:29→17:43)
[2023-01-28] MEDS: BENZTROPINE MESYLATE 1 MG TABLET PO (08:29)
[2023-01-28] MEDS: ASPIRIN 81 MG ENTERIC TABLET PO (08:29)
[2023-01-28] MEDS: APIXABAN 5 MG TABLET 10 MG PO (08:29)
[2023-01-28] MEDS: CHOLECALCIFEROL 1,000 UNITS TABLET 2000 UNITS PO (08:29)
[2023-01-28] MEDS: POTASSIUM CHLORIDE 20 MEQ TABLET.ER PO (08:30)
[2023-01-28] MEDS: PANTOPRAZOLE 40 MG TABLET PO (08:30)
[2023-01-28] MEDS: FLUoxetine HCL 20 MG CAPSULE 40 MG PO ×2 (08:30→17:43)
[2023-01-28] MEDS: AMOXICILLIN/CLAVULANATE K 875-125 MG TAB 1 TABLET PO (08:30)
--- NOTE | 2023-01-28 11:28 | WPDURCON ---
Assessment and Plan Assessment and plan (1) Acute UTI: Code(s): N39.0 - Urinary tract infection, site not specified Status: Acute Assessment and Plan: Send urine culture, although on Augmentin, urine is cloudy and has blood present to rule out a uTI that may be resistant to Augmentin. (2) Hematuria: Code(s): R31.9 - Hematuria, unspecified Status: Acute Assessment and Plan: Will get a CT Urogram to further evaluate, likely d/t catheter trauma. Would recommend a cystoscopy as an outpatient. Ok to irrigate payne PRN. (3) BPH (benign prostatic hyperplasia): Code(s): N40.0 - Benign prostatic hyperplasia without lower urinary tract symptoms Status: Acute Assessment and Plan: Start Flomax, ok to remove payne at OR in 7-10 days and do a voiding trial. Remian on Flomax to treat BPH director long term care. (4) Acute retention of urine: Code(s): R33.8 - Other retention of urine Status: Acute (5) Scrotal edema: Code(s): N50.89 - Other specified disorders of the male genital organs Status: Acute Assessment and Plan: Apply scrotal support, benign, keep scrotum elevated to help drain fluid off. US shows no concerning finds. NO surgical intervention needed. This may take weeks to resolve. Urology Consult Note HPI Date Seen: 01/28/23 Time Seen: 09:00 Requesting Physician: Alexei Pierre MD Primary Care Provider: Priyank DaughertyMD Consult Narrative Reason for consult: Scrotal Edema/Retention Narrative: Josh Lo is a 52 year old male who presented to the ER on 01/18/23 initially for confusion from the [facility]. He was reported to have blood in his urine as well. He has a history of schizophrenia with TBI. We were consulted to evaluate his edematous scrotum and retention. He had a payne removal yesterday for a voiding trial but couldn't urinate, therefore a new payne was placed. Since then his urine has turned pink/red and appears cloudy. No urine culture has been sent thus far. Urine is draining to gravity in his payne. He denies straining or hesitancy normally, but states he has nocturia 4-5x/night and during the day he has urgency, incontinence and frequency. He states he has not had trouble urinating in the past. He also denies injury to his scrotum or tugging at his payne. WBC is 11.0, creatinine is 0.70 and he is afebrile. Patient is on oral Augmentin at this time. He denies scrotal pain as well unless it is touched or evaluated. Review of Systems Cardiovascular: Cardiovascular: Denies chest pain Respiratory: Respiratory: Reports no additional respiratory complaints Gastrointestinal: Gastrointestinal: Denies abdominal pain, Denies nausea and Denies vomiting Genitourinary: Genitourinary: Reports hematuria, Denies genital pain, Denies dysuria, Denies flank pain, Reports nocturia, Denies testicular pain, Denies urinary frequency, Denies urinary hesitancy, Denies urinary incontinence and Reports urinary urgency [facility] Past Medical History Medical History Chronic constipation Dyslipidemia Gastroesophageal reflux disease Paranoid schizophrenia Traumatic brain injury Surgical History Surgical History No history of major surgery within 1 month Family History Family History Father Heart problem Mother Heart problem Diabetes mellitus Sibling Diabetes mellitus Sibling Diabetes mellitus Sibling Diabetes mellitus Sibling Diabetes mellitus Social History Social History Social History: Surrogate medical decision maker: Kori Mckeon, sibling. Code status: Do not resuscitate. Smoking status: Never smoker Alcohol intake: never Substance use: never Spiritual care concerns: No Meds
[2023-01-28 14:00] VITALS: BP 117/70; PULSE 87; RESP 16; TEMP 36.3; O2SAT 97
[2023-01-28] MEDS: DIVALPROEX SODIUM SPRINKLE 125 MG CAP.DR 750 MG PO (14:53)
[2023-01-28] MEDS: polyethylene glycoL 3350 17 GM POWD.PACK PO (14:54)
--- NOTE | 2023-01-28 16:20 | PM.DS ---
DS: Admitting Diagnosis Discharge Date 01/26/2023 Admitting Diagnosis Confusion, hypoxia, hypotension. DS: Discharge Diagnosis Discharge Diagnosis (1) Severe sepsis: Code(s): A41.9 - Sepsis, unspecified organism; R65.20 - Severe sepsis without septic shock Status: Acute Assessment and Plan: Improved 01/27/2023 interval history: patient with left lower lobe pneumonia patient is being treated Zosyn, patient denies any cough or shortness of breath, patient clinical symptoms were improved plan was to discharge the patient today however patient Palmer was removed and patient was unable to urinate, Palmer was reinserted and possibly had a scrotal trauma scrotum is quite enlarged ultrasound was ordered, will consult urologist for further recommendation, discussed with the ID pharmacist will stop the Zosyn and switch over patient to Augmentin to complete the 14 day course. (2) Left lower lobe pneumonia: Code(s): J18.9 - Pneumonia, unspecified organism Status: Acute Assessment and Plan: continue IV antibiotics for total of 10 days. Try to wean oxygen. Respiratory status is improving every day. (3) Altered mental status: Code(s): R41.82 - Altered mental status, unspecified Status: Acute Assessment and Plan: Improved, likely related to metabolic encephalopathy from sepsis and underlying psychiatric illness. (4) Acute respiratory failure with hypoxia: Code(s): J96.01 - Acute respiratory failure with hypoxia Status: Acute Assessment and Plan: See plan above (5) Deep vein thrombosis (DVT) of both lower extremities: Code(s): I82.403 - Acute embolism and thrombosis of unspecified deep veins of lower extremity, bilateral Status: Acute Assessment and Plan: Continue Eliquis (6) Acute kidney injury: Code(s): N17.9 - Acute kidney failure, unspecified Status: Acute Assessment and Plan: Continue fluids and monitor. (7) Hyperkalemia: Code(s): E87.5 - Hyperkalemia Status: Acute Assessment and Plan: Monitor (8) Fecal impaction: Code(s): K56.41 - Fecal impaction Status: Acute Assessment and Plan: Suppository ordered, enema ordered as well Monitor (9) Paranoid schizophrenia: Code(s): F20.0 - Paranoid schizophrenia Status: Acute Assessment and Plan: Continue home medications (10) Pulmonary embolism: Code(s): I26.99 - Other pulmonary embolism without acute cor pulmonale Status: Acute Assessment and Plan: CTA noted Continue heparin Await to see what oral anticoagulant is covered DS: Summary Hospital Course Reason for hospitalization: Confusion, hypoxia, hypotension. Narrative: This is a 52-year-old male with history of traumatic brain injury and schizophrenia who presented to the emergency department via EMS from [facility] for evaluation of confusion, hypoxia, and hypotension. He is minimally responsive and is not able to provide any meaningful history and as such majority the following is obtained via a review of his electronic medical records, ED notes, and discussions with his brother and sister. Sister Kori is his healthcare power of criminal defense attorney and she seems to see the patient more than anyone however has been a couple of weeks and she has seen him. [facility] staff typically keeps her apprised of changes in the patient's status and they phoned her today after sending the patient to the ED. He reportedly has not felt well for several days and has not been acting like himself. He has been running a temperature though no other specifics were given. He was afebrile on arrival with blood pressures running at the low end of normal. He has been persistently tachypneic and tachycardic since arrival and he is currently on 9 L high-flow nasal cannula with SpO2 in the mid 90s. Labs were signi
[2023-01-28 18:34] LABS: EDCOVIDSCREEN Negative (Negative)
[2023-01-28 19:30] VITALS: BP 99/59; PULSE 104; RESP 20; O2SAT 100
[2023-01-28 21:34] VITALS: BP 112/55; PULSE 93; RESP 18; TEMP 36.2; O2SAT 97
== END 2023-01-28 21:45 | DRG 871 ==
LOC: ANHED 09:29 → ANH3MEDSUR 12:10 → ANHIMU 01-19 14:25 → ANH3MEDSUR 01-24 12:39
PROVIDERS: Chiropractor; Internal Medicine; Internal Medicine Critical Care Medicine; Internal Medicine Pulmonary Disease; Nurse Practitioner; Physician Assistant; Admitting Provider Family Medicine; Emergency Provider Emergency Medicine; PCP Internal Medicine; Visit Provider Family Medicine
DX: A41.9 Sepsis, unspecified organism (principal); G93.41 Metabolic encephalopathy; J18.9 Pneumonia, unspecified organism; J96.01 Acute respiratory failure with hypoxia; I26.99 Other pulmonary embolism without acute cor pulmonale; N17.9 Acute kidney failure, unspecified; F20.0 Paranoid schizophrenia; N13.6 Pyonephrosis; I82.403 Acute embolism and thrombosis of unspecified deep veins of lower extremity, bilateral; T83.098A Other mechanical complication of other urinary catheter, initial encounter; N50.89 Other specified disorders of the male genital organs; R33.9 Retention of urine, unspecified; R65.20 Severe sepsis without septic shock; N30.91 Cystitis, unspecified with hematuria; E87.5 Hyperkalemia; E86.0 Dehydration; E78.5 Hyperlipidemia, unspecified; G47.33 Obstructive sleep apnea (adult) (pediatric); G93.89 Other specified disorders of brain; K21.9 Gastro-esophageal reflux disease without esophagitis; K56.41 Fecal impaction; N31.2 Flaccid neuropathic bladder, not elsewhere classified; Z20.822 Contact with and (suspected) exposure to COVID-19; Z79.82 Long term (current) use of aspirin; Z90.79 Acquired absence of other genital organ(s); Z87.820 Personal history of traumatic brain injury; Z66 Do not resuscitate; Z99.3 Dependence on wheelchair
CPT/HCPCS: 36415; 36600; 51702; 70450; 70553; 71045; 71275; 74018; 74176; 76775; 76870; 80048; 80053; 80164; 80202; 80307; 81001; 82140; 82375; 82565; 82607; 82805; 83050; 83605; 83690; 83735; 83880; 84145; 84439; 84443; 84484; 85025; 85610; 85730; 86140; 86738; 87040; 87081; 87086; 87426; 87449; 87637; 87899; 92526; 92610; 92611; 93005; 93306; 93970; 93976; 94640; 94762; 96361; 96365; 96368; 97110; 97112; 97162; 97530; 99285; A9270; A9577; C9803; J0456; J0692; J0743; J1644; J3370; J7030; J7120; Q9967

== ENCOUNTER 2023-01-29 13:41 | Emergency (ER) | payer OTHER, SELFPAY ==
--- NOTE | ~2023-01-29 | CT_ITS ---
EXAMINATION: CT brain wo con DATE: 01/29/2023 14:41 INDICATION: altered mental status . TECHNIQUE: Computed tomography (CT) of the head was performed without intravenous contrast. The mA wa s adjusted according to patient size. Iterative reconstruction technique was employed. The dose-lengt h product was 908.00 mGy-cm. COMPARISON: 01/18/2023. FINDINGS: Motion limited examination. No acute intracranial hemorrhage or extra-axial fluid collection. No hydrocephalus, mass, or herniation. No acute ischemic infarct. Unremarkable dural venous sinus attenuation. No acute osseous abnormality. The aerated spaces are clear. Mild atrophy and mild chronic white matter change. Atherosclerotic intracranial calcification. IMPRESSION: No acute intracranial process. Reviewed, dictated and finalized at location K.
--- NOTE | ~2023-01-29 | US_ITS ---
EXAMINATION: US venous doppler [facility] DATE: 01/29/2023 15:01 INDICATION: left leg swelling . TECHNIQUE: Grayscale images without and with compression and Doppler images of the left lower extremi ty veins were obtained. COMPARISON: None FINDINGS: Noncompressible left common femoral vein, profunda (deep) femoral vein, femoral vein, greater saphen ous, popliteal and gastrocnemius veins, without or with reduced flow. Peroneal vein and posterior tib ial veins are patent. IMPRESSION: Acute deep venous thrombosis involving the left common femoral vein, deep femoral vein, common femora l vein, greater saphenous, popliteal, and gastrocnemius veins. Reviewed, dictated and finalized at location K. IMPRESSION: Acute deep venous thrombosis involving the left common femoral vein, deep femor al vein, common femoral vein, greater saphenous, popliteal, and gastrocnemius v naderns.
[2023-01-29 13:39] VITALS: BP 104/70; PULSE 90; RESP 20; TEMP 36.6; O2SAT 96
--- NOTE | 2023-01-29 13:52 | ECG_ITS ---
Measurements Intervals [place] Rate: 89 P: 39 AK: 114 QRS: 58 QRSD: 89 T: 58 QT: 358 QTc: 438 Interpretive Statements SINUS RHYTHM WITH SHORT AK INTERVAL BORDERLINE ECG COMPARED TO ECG 01/19/2023 13:47:08 SINUS RHYTHM NOW PRESENT Electronically Signed On 01-29-2023 20:49:41 CDT by Alen Warren D.O.
[2023-01-29 13:56] VITALS: PULSE 90
[2023-01-29 14:03] LABS: Basophils Percent Auto 0.2 % (0.2-1.2); Eosinophils Percent Auto 0.2 % (0-4.4); Hematocrit 29.8 % (42.0-52.0); Hemoglobin 9.5 g/dL (14.0-18.0); Immature Granulocyte Absolute 0.05 K/mm3 (0.00-0.031); Immature Granulocyte Percent A 0.6 % (0-0.5); Lymphocytes Absolute Auto 1.54 K/mm3 (0.9-3.2); Lymphocytes Percent Auto 18.9 % (18.3-44.2); Mean Corpuscular HGB Conc 31.9 g/dl (32-36); Mean Corpuscular Hemoglobin 31.8 pg (26-34); Mean Corpuscular Volume 99.7 fl (80-100); Monocytes Absolute Auto 0.6 K/mm3 (0.1-0.6); Neutrophils Absolute Auto 5.9 K/mm3 (1.3-6.7); Neutrophils Percent Auto 73.1 % (45.5-73.1); Platelet Count Result 355 k/mm3 (150-375); Red Blood Count 2.99 M/mm3 (4.6-6.20); Red Cell Distribution Width 14.2 % (11.5-14.5); White Blood Count 8.1 K/mm3 (4.5-10.0)
--- NOTE | 2023-01-29 14:12 | ED.AMS ---
HPI - Altered Mental Status General Chief Complaint: Altered Mental Status Stated Complaint: AMS History of Present Illness HPI narrative: 52-year-old male who lives at a long-term care facility brought in by EMS today for decreased level of consciousness. He has a recent admission for sepsis and DVT of the left leg. He has a long-term Palmer catheter as well. He is not having any fever today. He does arouse to verbal stimuli. Patient has a history of traumatic brain injury and is not able to answer questions to provide history. He does seem very tired. Related Data Home Medications Medication Instructions Recorded Confirmed aspirin 81 mg tablet,delayed 81 mg PO DAILY 07/08/21 01/18/23 release divalproex 500 mg tablet,delayed 500 mg PO BID 07/08/21 01/24/23 release fluoxetine 40 mg capsule 40 mg PO BID 07/08/21 01/18/23 omeprazole 20 mg capsule,delayed 20 mg PO DAILY 07/08/21 01/18/23 release rosuvastatin 5 mg tablet 5 mg PO DAILY 07/08/21 01/18/23 acetaminophen 325 mg tablet 650 mg PO Q6H PRN Pain 01/18/23 01/18/23 benztropine 1 mg tablet 1 mg PO Q12H 01/18/23 01/24/23 buspirone 15 mg tablet 15 mg PO TID 01/18/23 01/18/23 cholecalciferol (vitamin D3) 50 50 mcg PO DAILY 01/18/23 01/18/23 mcg (2,000 unit) tablet divalproex 250 mg tablet,extended 250 mg PO BID 01/18/23 01/24/23 release 24 hr fenofibrate 160 mg tablet 160 mg PO DAILY 01/18/23 01/18/23 midodrine 10 mg tablet 10 mg PO TID 01/18/23 01/18/23 ondansetron HCl 4 mg tablet 4 mg PO Q6H PRN Nausea 01/18/23 01/18/23 potassium chloride 20 mEq 20 meq PO DAILY 01/18/23 01/18/23 tablet,extended release(part/cryst) risperidone 3 mg tablet 3 mg PO TID 01/18/23 01/18/23 vibegron 75 mg tablet (Gemtesa) 75 mg PO DAILY 01/18/23 01/18/23 Allergies Allergy/AdvReac Type Severity Reaction Status Date / Time No Known Allergies Allergy Verified 01/18/23 13:44 Review of Systems Review of Systems: Unable to obtain review of systems due to patient's mental status. [facility] Past Medical History Medical History Chronic constipation Dyslipidemia Gastroesophageal reflux disease Paranoid schizophrenia Traumatic brain injury Surgical History Surgical History No history of major surgery within 1 month Family History Family History Father Heart problem Mother Heart problem Diabetes mellitus Sibling Diabetes mellitus Sibling Diabetes mellitus Sibling Diabetes mellitus Sibling Diabetes mellitus Social History Social History Social History: Surrogate medical decision maker: Kori Mckeon, sibling. Code status: Do not resuscitate. Smoking status: Never smoker Alcohol intake: never Substance use: never Spiritual care concerns: No Exam Narrative: GENERAL: Ill appearing, no acute distress HEAD: Normocephalic, atraumatic. EYES: PERRL ENT: Mucous membranes moist NECK: Supple. CHEST: Clear to auscultation. No respiratory distress. No wheezes rales or rhonchi HEART: Regular rate and rhythm. No murmur heard. Normal peripheral pulses. ABDOMEN: Soft, nontender, nondistended, normal active bowel sounds. EXTREMITIES: 3+ pitting edema left lower extremity, pedal pulses present SKIN: Warm, dry, no rash. NEURO: Sleeping, arouses to verbal stimuli, verbal but does not answer questions appropriately PSYCH: Sleepy but arousable Course Vital Signs Vital signs: Vital Signs Temperature 36.6 C 01/29/23 13:39 Pulse Rate 90 01/29/23 13:39 Respiratory Rate 20 01/29/23 13:39 Blood Pressure 104/70 01/29/23 13:39 Pulse Oximetry 96 01/29/23 13:39 Oxygen Delivery Room Air 01/29/23 13:39 Temperature 36.6 C 01/29/23 13:39 Pulse Rate 90 01/29/23 13:56 Respiratory Rate 20 01/29
[2023-01-29 14:14] LABS: INR 1.8; Prothrombin Time 21.8 Seconds (11.1-14.7)
[2023-01-29 14:15] LABS: Partial Thromboplastin Time 44.8 SECONDS (22.3-36.8)
[2023-01-29 14:20] LABS: Alanine Aminotransferase 26 U/L (6-50); Albumin Level 2.5 g/dL (3.5-5.1); Alkaline Phosphatase 66 U/L (38-126); Anion Gap 3 mmol/L (8-16); Aspartate Amino Transferase 63 U/L (17-59); Bilirubin,Total 0.7 mg/dL (0.2-1.3); Blood Urea Nitrogen 8 mg/dL (9-20); Calcium 8.3 mg/dL (8.4-10.2); Carbon Dioxide 27 mmol/L (22-30); Chloride 106 mmol/L (98-107); Estimated CRCL calculation 102 ml/min; Estimated Glomerular Filt Rate > 60; Glucose 90 mg/dL (65-110); Potassium 4.1 mmol/L (3.4-5.0); Sodium 136 mmol/L (137-145)
--- NOTE | 2023-01-29 14:44 | PC.NURSE ---
D dimer added on at 1444 talked to
[2023-01-29 14:59] LABS: D Dimer 1.46 ug/mL (<0.48)
[2023-01-29 15:00] VITALS: BP 103/77; PULSE 84; RESP 14; O2SAT 100
[2023-01-29 15:10] LABS: Bacteria Urine None Seen /hpf; Non Pathogenic Casts 0-2; RBC Urine >100 /hpf (0-2); Squamous Epithelial Cell Urine None seen /hpf (Few); WBC Urine 21-50 /hpf
[2023-01-29 15:21] LABS: Appearance Urine Cloudy (Clear); Bilirubin Urine 2+ (Negative); Blood Urine 3+ (Negative); Color Urine Red (Yellow); Glucose Urine UA Negative (Negative); Ketones Urine Trace mg/dL (Negative); Leukocyte Esterase Ur Negative LEU/UL (Negative); Nitrate Urine Negative (Negative); Protein Urine 2+ mg/dL (Negative); Specific Grav Ur 1.025 (1.001-1.035); Urobilinogen Urine >=8.0 mg/dL (<2.0); pH Urine 6.5 (5.0-9.0)
[2023-01-29 15:23] LABS: Add Urine Microscopic? YES
[2023-01-29 16:31] VITALS: BP 122/78; PULSE 86; RESP 18
== END 2023-01-29 18:33 ==
PROVIDERS: Emergency Provider Nurse Practitioner Family; PCP Internal Medicine
DX: R40.0 Somnolence (principal); I82.512 Chronic embolism and thrombosis of left femoral vein; T83.511D Infection and inflammatory reaction due to indwelling urethral catheter, subsequent encounter; E78.5 Hyperlipidemia, unspecified
CPT/HCPCS: 36415; 70450; 80053; 81001; 83605; 85025; 85380; 85610; 85730; 87040; 87086; 93005; 93971; 99284

== ENCOUNTER 2023-02-06 12:36 | Emergency (ER) | payer OTHER, SELFPAY ==
[2023-02-06] VITALS (31 sets, daily range): BP systolic 101–109; BP diastolic 58–76; PULSE 78–98; RESP 12–24; TEMP 36.4; O2SAT 97–100
--- NOTE | ~2023-02-06 | CT_ITS ---
EXAMINATION: CT brain wo con INDICATION: Transient alteration of awareness COMPARISON: 01/29/2023 TECHNIQUE: Standard unenhanced head CT. The dose-length product (DLP) was 1059.33 mGy-cm. The mA was adjusted according to patient size. Iterative reconstruction technique was employed. FINDINGS: There is no acute intraparenchymal hemorrhage. No evidence of mass lesion. No evidence of a cute infarction. There is mild periventricular and subcortical hypodensity probably related to small vessel ischemic disease. There is mild prominence of the sulci and ventricles related to cerebral atr ophy. Intracranial calcified cerebral atherosclerosis is noted. There are no extra-axial collections. There is no mass effect or midline shift. The orbits and soft tissues are unremarkable. The visualiz ed sinuses and mastoid air cells are well aerated. IMPRESSION: 1. No acute intracranial abnormality. 2. Age related findings. Reviewed, dictated and finalized at location A.
--- NOTE | ~2023-02-06 | CT_ITS ---
EXAMINATION: CT abdomen pelvis wo con DATE: 02/06/2023 14:35 INDICATION: hematuria, concern for kidney stone TECHNIQUE: Computed tomography (CT) of the abdomen and pelvis was performed without intravenous contr ast. Automated exposure control and iterative reconstruction technique were employed. The dose-length product was 557.44 mGy-cm. COMPARISON: 01/18/2023. FINDINGS: Lower thorax: Subsegmental, tree-in-bud, and centrilobular nodular opacities in the bilateral lower l ungs, with significant scarring Liver: Normal. Biliary/Gallbladder: Mild hydrops, no inflammation or stone detected No bile duct dilation. Pancreas: No mass or duct dilation. Spleen: Normal. Adrenals:No mass. Kidneys: Multiple simple right renal cysts. Simple left upper pole cyst. No suspicious mass. No obstr ucting calcification. No hydronephrosis. GI tract: No small or large bowel dilation. Contrast fills portions of the colon. The rectum is dilat ed by formed stool to 8.0 cm, with slightly increased wall thickening and inflammatory change. The ap pendix remains mildly dilated, with no wall thickening or surrounding inflammatory change, this is li sue a chronic finding for this patient. Mesentery/Peritoneum: No ascites, mass, or free air. Retroperitoneum: No mass. Pelvis: Marked bladder wall thickening in a urinary bladder that is decompressed by a Palmer catheter. Surgically absent prostate. Soft Tissues: Soft tissues and body wall unremarkable. Bones: No acute osseous finding. IMPRESSION: Bilateral lower lobe opacities may represent bronchiolitis, atypical infection, and/or or aspiration. No CT evidence of obstructive uropathy. Urinary bladder wall thickening may be secondary to lack of distention, outlet compromise, or cystitis. Fecal impaction with early stercoral colitis. Reviewed, dictated and finalized at location [facility]. IMPRESSION: Bilateral lower lobe opacities may represent bronchiolitis, atypical infection, and/or or aspiration. No CT evidence of obstructive uropathy. Urinary bladder wall thickening may be secondary to lack of distention, outlet compromise, or c ystitis. Fecal impaction with early stercoral colitis.
--- NOTE | 2023-02-06 12:45 | ECG_ITS ---
Measurements Intervals [place] Rate: 82 P: 55 MS: 127 QRS: 61 QRSD: 94 T: 58 QT: 357 QTc: 418 Interpretive Statements SINUS RHYTHM BASELINE ARTIFACT- I, II, III, AVR, AVL, AVF, V1 NORMAL ECG COMPARED TO ECG 01/29/2023 13:54:22 NO SIGNIFICANT CHANGES Electronically Signed On 02-06-2023 13:07:42 CDT by Alen Warren D.O.
[2023-02-06 13:20] LABS: Basophils Percent Auto 0.4 % (0.2-1.2); Eosinophils Percent Auto 0.4 % (0-4.4); Hematocrit 35.8 % (42.0-52.0); Hemoglobin 11.4 g/dL (14.0-18.0); Immature Granulocyte Absolute 0.04 K/mm3 (0.00-0.031); Immature Granulocyte Percent A 0.8 % (0-0.5); Lymphocytes Absolute Auto 1.56 K/mm3 (0.9-3.2); Lymphocytes Percent Auto 32.6 % (18.3-44.2); Mean Corpuscular HGB Conc 31.8 g/dl (32-36); Mean Corpuscular Hemoglobin 31.2 pg (26-34); Mean Corpuscular Volume 98.1 fl (80-100); Mean Platelet Volume 9.4 fl (7.4-10.4); Monocytes Absolute Auto 0.7 K/mm3 (0.1-0.6); Monocytes Percent Auto 15.3 % (2.6-8.5); Neutrophils Absolute Auto 2.4 K/mm3 (1.3-6.7); Neutrophils Percent Auto 50.5 % (45.5-73.1); Platelet Count Result 187 k/mm3 (150-375); Red Blood Count 3.65 M/mm3 (4.6-6.20); Red Cell Distribution Width 13.5 % (11.5-14.5); White Blood Count 4.8 K/mm3 (4.5-10.0)
--- NOTE | 2023-02-06 13:24 | ED.AMS ---
HPI - Altered Mental Status General Chief Complaint: Altered Mental Status Stated Complaint: Altered with Low BP Time Seen by Provider: 02/06/23 12:47 History of Present Illness HPI narrative: 52-year-old male presenting to the ED for evaluation of altered mental status and increased lethargy. Patient does have history of traumatic brain injury and is on multiple sedating medications. retirement states that the patient did recently have his risperidone increased and they report that he did have increased lethargy after the risperidone. Patient is being treated for a urinary tract infection with Bactrim. Upon arrival to the emergency department patient is alert and denies any complaints. Patient is watching television and has no complaints. Patient is not lethargic during my examination. Patient denies any pain or complaints. Patient is well-appearing and in no distress. Related Data Home Medications Medication Instructions Recorded Confirmed aspirin 81 mg tablet,delayed 81 mg PO DAILY 07/08/21 01/18/23 release divalproex 500 mg tablet,delayed 500 mg PO BID 07/08/21 01/24/23 release fluoxetine 40 mg capsule 40 mg PO BID 07/08/21 01/18/23 omeprazole 20 mg capsule,delayed 20 mg PO DAILY 07/08/21 01/18/23 release rosuvastatin 5 mg tablet 5 mg PO DAILY 07/08/21 01/18/23 acetaminophen 325 mg tablet 650 mg PO Q6H PRN Pain 01/18/23 01/18/23 benztropine 1 mg tablet 1 mg PO Q12H 01/18/23 01/24/23 buspirone 15 mg tablet 15 mg PO TID 01/18/23 01/18/23 cholecalciferol (vitamin D3) 50 50 mcg PO DAILY 01/18/23 01/18/23 mcg (2,000 unit) tablet divalproex 250 mg tablet,extended 250 mg PO BID 01/18/23 01/24/23 release 24 hr fenofibrate 160 mg tablet 160 mg PO DAILY 01/18/23 01/18/23 midodrine 10 mg tablet 10 mg PO TID 01/18/23 01/18/23 ondansetron HCl 4 mg tablet 4 mg PO Q6H PRN Nausea 01/18/23 01/18/23 potassium chloride 20 mEq 20 meq PO DAILY 01/18/23 01/18/23 tablet,extended release(part/cryst) risperidone 3 mg tablet 3 mg PO TID 01/18/23 01/18/23 vibegron 75 mg tablet (Gemtesa) 75 mg PO DAILY 01/18/23 01/18/23 Allergies Allergy/AdvReac Type Severity Reaction Status Date / Time No Known Allergies Allergy Verified 01/18/23 13:44 Review of Systems Review of Systems: All systems reviewed & are unremarkable except as noted in HPI and below PMFSH Past Medical History Medical History Chronic constipation Dyslipidemia Gastroesophageal reflux disease Paranoid schizophrenia Traumatic brain injury Surgical History Surgical History No history of major surgery within 1 month Family History Family History Father Heart problem Mother Heart problem Diabetes mellitus Sibling Diabetes mellitus Sibling Diabetes mellitus Sibling Diabetes mellitus Sibling Diabetes mellitus Social History Social History Social History: Surrogate medical decision maker: Kori Mckeon, sibling. Code status: Do not resuscitate. Smoking status: Never smoker Alcohol intake: never Substance use: never Spiritual care concerns: No Exam Narrative: APPEARANCE: Well appearing, no pain, no distress, well-nourished. HEAD: normocephalic, atraumatic. EYES: PERRLA/EOMI, conjunctivae clear. NOSE: Normal no drainage NECK: Supple. No adenopathy, no masses. RESPIRATORY: Airway patent, respirations nonlabored. Clear to auscultation bilaterally, no rales, rhonchi, wheezing. CARDIOVASCULAR: Regular rate and rhythm without murmurs rubs or gallops. ABDOMINAL: Soft, nontender, nondistended, normal bowel sounds MUSCULOSKELETAL: Moves all extremities. Strength/ROM intact, No edema, No calf tenderness. NEURO: Alert. Cranial nerves II through XII intact. Grossly intact SKIN: Warm, dry. Normal Color
[2023-02-06 13:27] LABS: Appearance Urine Turbid (Clear); Bacteria Urine None Seen /hpf; Bilirubin Urine Negative (Negative); Blood Urine 3+ (Negative); Color Urine Yellow (Yellow); Glucose Urine UA Negative (Negative); Ketones Urine Negative (Negative); Leukocyte Esterase Ur 2+ LEU/UL (Negative); Nitrate Urine Negative (Negative); Protein Urine 1+ mg/dL (Negative); RBC Urine >100 /hpf (0-2); Specific Grav Ur 1.017 (1.001-1.035); Squamous Epithelial Cell Urine None seen /hpf (Few); pH Urine >=9.0 (5.0-9.0)
[2023-02-06 13:30] LABS: INR 1.3; Partial Thromboplastin Time 31.8 SECONDS (22.3-36.8); Prothrombin Time 16.8 Seconds (11.1-14.7)
[2023-02-06 13:36] LABS: Add Urine Microscopic? YES
--- NOTE | 2023-02-06 13:44 | PC.NURSE ---
Pt off unit to CT.
[2023-02-06 14:21] LABS: Influenza A QL RT-PCR Negative (Negative); Influenza B QL RT-PCR Negative (Negative); RSV RNA, RT-PCR Negative (Negative); SARS-CoV-2 RNA PCR Negative (Negative)
[2023-02-06 16:51] LABS: Alanine Aminotransferase 27 U/L (6-50); Albumin Level 3.2 g/dL (3.5-5.1); Alkaline Phosphatase 66 U/L (38-126); Anion Gap 8 mmol/L (8-16); Aspartate Amino Transferase 62 U/L (17-59); Bilirubin,Total 0.5 mg/dL (0.2-1.3); Blood Urea Nitrogen 11 mg/dL (9-20); Calcium 8.7 mg/dL (8.4-10.2); Carbon Dioxide 22 mmol/L (22-30); Chloride 105 mmol/L (98-107); Estimated Glomerular Filt Rate > 60; Glucose 99 mg/dL (65-110); Potassium 4.2 mmol/L (3.4-5.0); Sodium 135 mmol/L (137-145)
[2023-02-06] MEDS: AZITHROMYCIN 250 MG TABLET 500 MG PO (17:17)
--- NOTE | 2023-02-06 19:10 | PC.NURSE ---
Patient report given to WILLIAM Caldwell. All questions answered and care of patient transferred.
== END 2023-02-06 20:50 ==
PROVIDERS: Emergency Provider Emergency Medicine; PCP Internal Medicine
DX: N39.0 Urinary tract infection, site not specified (principal); J18.9 Pneumonia, unspecified organism; Z20.822 Contact with and (suspected) exposure to COVID-19; E78.5 Hyperlipidemia, unspecified; K21.9 Gastro-esophageal reflux disease without esophagitis; F20.0 Paranoid schizophrenia; Z87.820 Personal history of traumatic brain injury; Z79.82 Long term (current) use of aspirin; Z79.01 Long term (current) use of anticoagulants
CPT/HCPCS: 36415; 70450; 74176; 80053; 81001; 85025; 85610; 85730; 87086; 87637; 93005; 96365; 99284; A9270; J0696

== ENCOUNTER 2023-02-17 14:05 | Emergency (ER) | payer OTHER, SELFPAY ==
[2023-02-17] VITALS (8 sets, daily range): BP systolic 94–114; BP diastolic 63–82; PULSE 91; RESP 18–20; TEMP 36.8; O2SAT 98
[2023-02-17 14:46] LABS: Bacteria Urine 4+ /hpf; Non Pathogenic Casts 0-2; RBC Urine >100 /hpf (0-2); Squamous Epithelial Cell Urine None seen /hpf (Few); WBC Urine 51-100 /hpf
[2023-02-17 14:54] LABS: Appearance Urine Turbid (Clear); Bilirubin Urine 1+ (Negative); Blood Urine 3+ (Negative); Glucose Urine UA Negative (Negative); Ketones Urine Negative (Negative); Leukocyte Esterase Ur 2+ LEU/UL (Negative); Nitrate Urine Positive (Negative); Protein Urine 2+ mg/dL (Negative); Specific Grav Ur 1.016 (1.001-1.035)
[2023-02-17 14:56] LABS: Add Urine Microscopic? YES; Color Urine Red (Yellow)
--- NOTE | 2023-02-17 14:59 | PC.NURSE ---
When removing catheter that pt had in from facility, catheter was noted to be in the urethra with 10 ml saline inflated to balloon. Catheter removed and new catheter placed with immediate return blood tinged urine.
--- NOTE | 2023-02-17 15:00 | ED.GENADULT ---
HPI - General Adult General Chief complaint: Urogenital-Male Stated complaint: urinary issues Time Seen by Provider: 02/17/23 14:17 Source: RN notes reviewed Mode of arrival: EMS Limitations: other (Nonverbal) History of Present Illness HPI narrative: This is a 52-year-old male who is nonverbal and presenting from [facility] via EMS with chief complaint of Palmer catheter problems. It is unclear why he has this Palmer catheter at this time. Patient is not able to give me any history. Apparently at the [facility] when they were trying to change the Palmer catheter they inserted the new one and only 2.5 inches up and then tried to inflate it. Our nursing staff was able to place a new Palmer catheter without complication but he has gross hematuria draining into his Palmer bag. Related Data Home Medications Medication Instructions Recorded Confirmed aspirin 81 mg tablet,delayed 81 mg PO DAILY 07/08/21 01/18/23 release divalproex 500 mg tablet,delayed 500 mg PO BID 07/08/21 01/24/23 release fluoxetine 40 mg capsule 40 mg PO BID 07/08/21 01/18/23 omeprazole 20 mg capsule,delayed 20 mg PO DAILY 07/08/21 01/18/23 release rosuvastatin 5 mg tablet 5 mg PO DAILY 07/08/21 01/18/23 acetaminophen 325 mg tablet 650 mg PO Q6H PRN Pain 01/18/23 01/18/23 benztropine 1 mg tablet 1 mg PO Q12H 01/18/23 01/24/23 buspirone 15 mg tablet 15 mg PO TID 01/18/23 01/18/23 cholecalciferol (vitamin D3) 50 50 mcg PO DAILY 01/18/23 01/18/23 mcg (2,000 unit) tablet divalproex 250 mg tablet,extended 250 mg PO BID 01/18/23 01/24/23 release 24 hr fenofibrate 160 mg tablet 160 mg PO DAILY 01/18/23 01/18/23 midodrine 10 mg tablet 10 mg PO TID 01/18/23 01/18/23 ondansetron HCl 4 mg tablet 4 mg PO Q6H PRN Nausea 01/18/23 01/18/23 potassium chloride 20 mEq 20 meq PO DAILY 01/18/23 01/18/23 tablet,extended release(part/cryst) risperidone 3 mg tablet 3 mg PO TID 01/18/23 01/18/23 vibegron 75 mg tablet (Gemtesa) 75 mg PO DAILY 01/18/23 01/18/23 Allergies Allergy/AdvReac Type Severity Reaction Status Date / Time No Known Allergies Allergy Verified 02/17/23 14:40 Review of Systems Review of Systems: ROS unobtainable: Yes other (Patient nonverbal) [facility] Past Medical History Medical History Chronic constipation Dyslipidemia Gastroesophageal reflux disease Paranoid schizophrenia Traumatic brain injury Surgical History Surgical History No history of major surgery within 1 month Family History Family History Father Heart problem Mother Heart problem Diabetes mellitus Sibling Diabetes mellitus Sibling Diabetes mellitus Sibling Diabetes mellitus Sibling Diabetes mellitus Social History Social History Social History: Surrogate medical decision maker: Korijae Mckeon, sibling. Code status: Do not resuscitate. Smoking status: Never smoker Alcohol intake: never Substance use: never Spiritual care concerns: No Exam Narrative: GENERAL: Well-appearing, well-nourished, and in no acute distress. HEAD: Normocephalic, atraumatic. EYES: PERRLA and EOMI. ENT: Nares clear, no rhinorrhea or epistaxis. Mucous membranes moist. Oropharynx without tonsillar hypertrophy exudate or other lesions. NECK: Supple. No adenopathy or masses. CHEST: No respiratory distress. Clear to auscultation. No wheezes rales or rhonchi HEART: Regular rate and rhythm. No murmur heard. Normal peripheral pulses. ABDOMEN: Soft, nontender, nondistended, normal active bowel sounds. : Palmer catheter in place. Draining giovany hematuria. No blood clots visualized. No blood at the tip of the meatus. MSK: Normal range of motion. No edema. SKIN: Warm, dry, no rash. NEURO: Alert and oriented x3. No
--- NOTE | 2023-02-17 15:34 | WPDURCON ---
Assessment and Plan Assessment and plan (1) Encounter for Palmer catheter replacement: Code(s): Z46.6 - Encounter for fitting and adjustment of urinary device Status: Acute (2) UTI (urinary tract infection) due to urinary indwelling Palmer catheter: Qualifiers: Encounter type: subsequent encounter Indwelling urinary catheter type: indwelling urethral catheter Qualified Code(s): T83.511D - Infection and inflammatory reaction due to indwelling urethral catheter, subsequent encounter; N39.0 - Urinary tract infection, site not specified Code(s): T83.511A - Infection and inflammatory reaction due to indwelling urethral catheter, initial encounter; N39.0 - Urinary tract infection, site not specified Status: Acute Assessment and Plan: Transient hematuria secondary to traumatic urethral catheter insertion. With appropriate replacement of the catheter this has essentially resolved. No further intervention or evaluation needed from our standpoint Urology Consult Note HPI Date Seen: 02/17/23 Primary Care Provider: Priyank Daugherty, Consult Narrative Narrative: Josh Lo is a 52 year old male resident of a group only has a chronic indwelling catheter and is non communicative. Outside attempt replacement is catheter lead to inflation of the balloon in his penile urethra. He had transient hematuria that his sense to resolve with appropriate replacement his catheter. I saw in the ED his catheter irrigated freely. There appears to be no significant trauma to the urethra. Review of Systems Review of Systems: ROS unobtainable: Yes unobtainable due to mental status PMFSH Past Medical History Medical History Chronic constipation Dyslipidemia Gastroesophageal reflux disease Paranoid schizophrenia Traumatic brain injury Surgical History Surgical History No history of major surgery within 1 month Family History Family History Father Heart problem Mother Heart problem Diabetes mellitus Sibling Diabetes mellitus Sibling Diabetes mellitus Sibling Diabetes mellitus Sibling Diabetes mellitus Social History Social History Social History: Surrogate medical decision maker: Kori Mckeon, sibling. Code status: Do not resuscitate. Smoking status: Never smoker Alcohol intake: never Substance use: never Spiritual care concerns: No Meds Home Medications and Allergies Home Medications Medication Instructions Recorded Confirmed Type aspirin 81 mg tablet,delayed 81 mg PO DAILY 07/08/21 01/18/23 History release divalproex 500 mg tablet,delayed 500 mg PO BID 07/08/21 01/24/23 History release fluoxetine 40 mg capsule 40 mg PO BID 07/08/21 01/18/23 History omeprazole 20 mg capsule,delayed 20 mg PO DAILY 07/08/21 01/18/23 History release rosuvastatin 5 mg tablet 5 mg PO DAILY 07/08/21 01/18/23 History acetaminophen 325 mg tablet 650 mg PO Q6H PRN Pain 01/18/23 01/18/23 History benztropine 1 mg tablet 1 mg PO Q12H 01/18/23 01/24/23 History buspirone 15 mg tablet 15 mg PO TID 01/18/23 01/18/23 History cholecalciferol (vitamin D3) 50 50 mcg PO DAILY 01/18/23 01/18/23 History mcg (2,000 unit) tablet divalproex 250 mg tablet,extended 250 mg PO BID 01/18/23 01/24/23 History release 24 hr fenofibrate 160 mg tablet 160 mg PO DAILY 01/18/23 01/18/23 History midodrine 10 mg tablet 10 mg PO TID 01/18/23 01/18/23 History ondansetron HCl 4 mg tablet 4 mg PO Q6H PRN Nausea 01/18/23 01/18/23 History potassium chloride 20 mEq 20 meq PO DAILY 01/18/23 01/18/23 History tablet,extended release(part/cryst) risperidone 3 mg tablet 3 mg PO TID 01/18/23 01/18/23 History vibegron 75 mg tablet (Gemtesa) 75 mg PO DAILY 01/18/23
--- NOTE | 2023-02-17 21:45 | PC.NURSE ---
Transport arrived for patient at this time
== END 2023-02-17 22:00 ==
PROVIDERS: Emergency Medicine; Emergency Provider Physician Assistant; PCP Internal Medicine
DX: Z46.6 Encounter for fitting and adjustment of urinary device (principal); T83.511A Infection and inflammatory reaction due to indwelling urethral catheter, initial encounter; E78.5 Hyperlipidemia, unspecified; K21.9 Gastro-esophageal reflux disease without esophagitis; F20.0 Paranoid schizophrenia; Z87.820 Personal history of traumatic brain injury; Z66 Do not resuscitate; Y84.6 Urinary catheterization as the cause of abnormal reaction of the patient, or of later complication, without mention of misadventure at the time of the procedure
CPT/HCPCS: 51702; 81001; 87077; 87086; 87186; 99283

== ENCOUNTER 2023-02-27 13:23 | Observation (INO) | payer OTHER, SELFPAY ==
[2023-02-27] VITALS (23 sets, daily range): BP systolic 97–124; BP diastolic 65–85; PULSE 85–97; RESP 11–28; TEMP 36.2–37.4; O2SAT 94–100
--- NOTE | ~2023-02-27 | CT_ITS ---
EXAMINATION: CT brain wo con DATE: 02/27/2023 15:55 INDICATION: Altered mental status. Transient alteration of awareness. TECHNIQUE: Computed tomography (CT) of the head was performed without intravenous contrast. The mA wa s adjusted according to patient size. Iterative reconstruction technique was employed. Exam dose: 98 3.67 mGy-cm total exam DLP. COMPARISON: 02/06/2023 CT brain FINDINGS: No intracranial mass lesion or hemorrhage or cerebrovascular accident. No midline shift or mass effect. There are central and cortical cerebral and cerebellar atrophy. Bilateral carotid siphon internal carotid artery calcifications. No subdural or epidural hematoma. No fracture or bone destruction of the cranial vault. Included paranasal sinuses and the mastoid air cells are normally developed and aerated. IMPRESSION: No acute intracranial finding Greater than expected cerebral cortical and cerebellar atrophy for age of 53 years Reviewed, dictated and finalized at [facility]. Reviewed, dictated and finalized at location [facility]. IMPRESSION: No acute intracranial finding Greater than expected cerebral cortical and cerebellar atrophy for age of 53 ye ars
--- NOTE | ~2023-02-27 | XR_ITS ---
XR chest 1V portable 02/27/2023 14:08 Indication: Altered mental status Procedure: AP portable chest Comparison: 01/21/2023 Findings: Heart size normal. Left basilar airspace disease. No pleural effusion, edema or pneumothora x. No acute osseous abnormality. There is a healed left clavicular fracture. No acute osseous abnorma lity. Impression: 1: Left basilar airspace disease may represent atelectasis or developing pneumonia. Reviewed, dictated and finalized at location A. Impression: 1: Left basilar airspace disease may represent atelectasis or developing pneumo korey.
--- NOTE | ~2023-02-27 | US_ITS ---
EXAMINATION: US venous doppler [facility] DATE: 03/01/2023 14:19 INDICATION: Left lower limb swelling TECHNIQUE: Brandon scale images without and with compression and Doppler images of the left lower extrem ity veins were obtained. COMPARISON: 01/29/2023 FINDINGS: There is persistent thrombosis of the left common femoral vein, profunda femoral vein, femo ral vein, and popliteal vein. The peroneal trunk, posterior tibial veins, and gastrocnemius vein are patent. There is partial thrombosis of the greater saphenous vein. IMPRESSION: 1. Left lower extremity deep venous thrombosis as above, minimally changed. These findings were discussed with WILLIAM Cameron on [facility] at 1445 hours on 03/01/2023. Reviewed, dictated and finalized at location A. IMPRESSION: 1. Left lower extremity deep venous thrombosis as above, minimally changed. These findings were discussed with WILLIAM Cameron on [facility] at 1445 hours on .
--- NOTE | 2023-02-27 13:32 | ED.MALEGU ---
HPI - Male Genitourinary General Chief complaint: Urogenital-Male Stated complaint: fever/ uti? Time Seen by Provider: 02/27/23 13:32 Source: EMS Mode of arrival: EMS History of Present Illness HPI Narrative: 53 years old male came from [facility] with change mental status over the last 3 days. Related Data Home Medications Medication Instructions Recorded Confirmed aspirin 81 mg tablet,delayed 81 mg PO DAILY 07/08/21 01/18/23 release divalproex 500 mg tablet,delayed 500 mg PO BID 07/08/21 01/24/23 release fluoxetine 40 mg capsule 40 mg PO BID 07/08/21 01/18/23 omeprazole 20 mg capsule,delayed 20 mg PO DAILY 07/08/21 01/18/23 release rosuvastatin 5 mg tablet 5 mg PO DAILY 07/08/21 01/18/23 acetaminophen 325 mg tablet 650 mg PO Q6H PRN Pain 01/18/23 01/18/23 benztropine 1 mg tablet 1 mg PO Q12H 01/18/23 01/24/23 buspirone 15 mg tablet 15 mg PO TID 01/18/23 01/18/23 cholecalciferol (vitamin D3) 50 50 mcg PO DAILY 01/18/23 01/18/23 mcg (2,000 unit) tablet divalproex 250 mg tablet,extended 250 mg PO BID 01/18/23 01/24/23 release 24 hr fenofibrate 160 mg tablet 160 mg PO DAILY 01/18/23 01/18/23 midodrine 10 mg tablet 10 mg PO TID 01/18/23 01/18/23 ondansetron HCl 4 mg tablet 4 mg PO Q6H PRN Nausea 01/18/23 01/18/23 potassium chloride 20 mEq 20 meq PO DAILY 01/18/23 01/18/23 tablet,extended release(part/cryst) risperidone 3 mg tablet 3 mg PO TID 01/18/23 01/18/23 vibegron 75 mg tablet (Gemtesa) 75 mg PO DAILY 01/18/23 01/18/23 Allergies Allergy/AdvReac Type Severity Reaction Status Date / Time No Known Allergies Allergy Verified 02/27/23 14:40 Review of Systems Review of Systems: ROS unobtainable: Yes unobtainable due to medical condition and unobtainable due to mental status [facility] Past Medical History Medical History Chronic constipation Dyslipidemia Gastroesophageal reflux disease Paranoid schizophrenia Traumatic brain injury Surgical History Surgical History No history of major surgery within 1 month Family History Family History Father Heart problem Mother Heart problem Diabetes mellitus Sibling Diabetes mellitus Sibling Diabetes mellitus Sibling Diabetes mellitus Sibling Diabetes mellitus Social History Social History Social History: Surrogate medical decision maker: Kori Mckeon, sibling. Code status: Do not resuscitate. Smoking status: Never smoker Alcohol intake: never Substance use: never Spiritual care concerns: No Exam Narrative: General appearance: Well-developed, well-nourished Skin: Normal color cushioning pads on the feet bilaterally Head: Normocephalic, nontraumatic Eyes: Clear conjunctiva ENT: Oropharynx normal, ears normal, nose normal Neck: Supple, nontender Chest and respiratory: Airway patent, no respiratory distress, no accessory muscle use Heart: Regular rate/rhythm Abdomen: Soft, nontender, no organomegaly, quiet bowel sounds, Palmer catheter in place, thick cloudy bloody urine in the bag Vascular: Normal peripheral pulses, normal capillary refill. Neurologic: Alert and oriented to his name only Course Vital Signs Vital signs: Vital Signs Temperature 37.4 C 02/27/23 13:25 Pulse Rate 95 02/27/23 13:25 Respiratory Rate 16 02/27/23 13:25 Blood Pressure 98/72 L 02/27/23 13:25 Pulse Oximetry 100 02/27/23 13:25 Oxygen Delivery Room Air 02/27/23 13:25 Temperature 37.4 C 02/27/23 13:25 Puls
--- NOTE | 2023-02-27 13:58 | ECG_ITS ---
Measurements Intervals [place] Rate: 91 P: 0 ID: 113 QRS: 54 QRSD: 89 T: 60 QT: 344 QTc: 424 Interpretive Statements SINUS RHYTHM WITH SHORT ID INTERVAL WITHIN NORMAL LIMITS COMPARED TO ECG 02/06/2023 12:45:21 NO SIGNIFICANT CHANGES Electronically Signed On 02-28-2023 11:14:46 CDT by Nabil Jackson M.D.
[2023-02-27 14:16] LABS: Alveolar/Arterial O2 Gradient 37.3 mmHg; Base Excess ABG 3.6 mEq/l (+/-2.0); Fractional Inspired Oxygen 21 %; HCO3 ABG 23.3 mEq/l (22.0-26.0); Oxygen Content ABG 16.2 %vol (16.0-22.0); Oxyhemoglobin 96.1 % THb (90.0-100.0); PO2 ABG 85.4 mmHg (80.0-100.0); PO2 FiO2 Ratio Arterial Blood 4.07 %; Total Hemoglobin 11.9 g/dL (12.0-18.0)
[2023-02-27 14:20] LABS: pH ABG 7.632 (7.350-7.450)
[2023-02-27 14:21] LABS: Device ROOM AIR; Modified Allen's Test Pass; PCO2 ABG 22.6 mmHg (35.0-45.0); Site Drawn LEFT RADIAL
[2023-02-27] MEDS: SODIUM CHLORIDE 0.9% IV 1,000 ML 999 ML IV CONT (14:41)
[2023-02-27 14:55] LABS: Lactic Acid Reflex 1.2 mmol/L (0.7-2.0)
[2023-02-27 14:56] LABS: Alanine Aminotransferase 19 U/L (6-50); Albumin Level 2.5 g/dL (3.5-5.1); Alkaline Phosphatase 44 U/L (38-126); Anion Gap 5 mmol/L (8-16); Aspartate Amino Transferase 32 U/L (17-59); Bilirubin,Total 0.5 mg/dL (0.2-1.3); Blood Urea Nitrogen 16 mg/dL (9-20); Calcium 7.9 mg/dL (8.4-10.2); Carbon Dioxide 26 mmol/L (22-30); Chloride 106 mmol/L (98-107); Estimated CRCL calculation 105 ml/min; Estimated Glomerular Filt Rate > 60; Glucose 98 mg/dL (65-110); Potassium 3.8 mmol/L (3.4-5.0); Sodium 137 mmol/L (137-145)
[2023-02-27 15:01] LABS: Basophils Percent Auto 0.3 % (0.2-1.2); Hematocrit 33.2 % (42.0-52.0); Hemoglobin 10.7 g/dL (14.0-18.0); Immature Granulocyte Absolute 0.09 K/mm3 (0.00-0.031); Lymphocytes Percent Auto 27.1 % (18.3-44.2); Mean Corpuscular HGB Conc 32.2 g/dl (32-36); Mean Corpuscular Volume 96.2 fl (80-100); Monocytes Absolute Auto 1.3 K/mm3 (0.1-0.6); Monocytes Percent Auto 13.6 % (2.6-8.5); Neutrophils Absolute Auto 5.3 K/mm3 (1.3-6.7); Platelet Count Result 171 k/mm3 (150-375); Red Blood Count 3.45 M/mm3 (4.6-6.20); Red Cell Distribution Width 14.2 % (11.5-14.5); White Blood Count 9.2 K/mm3 (4.5-10.0)
[2023-02-27 15:06] LABS: INR 1.3; Partial Thromboplastin Time 35.9 SECONDS (22.3-36.8); Prothrombin Time 16.7 Seconds (11.1-14.7)
[2023-02-27 15:07] LABS: Troponin I < 0.012 ng/mL (0.000-0.034)
[2023-02-27 15:39] LABS: Appearance Urine Turbid (Clear); Bacteria Urine Rare /hpf; Bilirubin Urine Negative (Negative); Blood Urine 2+ (Negative); Color Urine Dark Yellow (Yellow); Glucose Urine UA Negative (Negative); Ketones Urine Trace mg/dL (Negative); Leukocyte Esterase Ur 2+ LEU/UL (Negative); Need Manual Microscopic Reviewed; Nitrate Urine Negative (Negative); Protein Urine 3+ mg/dL (Negative); RBC Urine 51-100 /hpf (0-2); Specific Grav Ur 1.026 (1.001-1.035); Squamous Epithelial Cell Urine None seen /hpf (Few); WBC Urine >100 /hpf; pH Urine 7.5 (5.0-9.0)
[2023-02-27 15:46] LABS: Amphetamine Screen Urine Negative (Negative); Barbiturate Screen Urine Negative (Negative); Benzodiazepines Screen Urine Negative (Negative); Cannabinoid Screen Urine Negative (Negative); Cocaine Screen Urine Negative (Negative); Methadone Screen Urine Negative (Negative); Opiate Screen Urine Negative (Negative); Phencyclidine Screen Urine Negative (Negative)
[2023-02-27 15:56] LABS: Add Urine Microscopic? YES
--- NOTE | 2023-02-27 16:31 | PM.IMHP ---
H&P: HPI History of Present Illness Date/Time: 02/27/23 17:00 Chief Complaint: Altered mental status. Narrative: This is a 53-year-old male with history of traumatic brain injury and schizophrenia who presented to the emergency department via EMS from [facility] for evaluation of altered mental status. He is not able to provide any meaningful history and as such majority the following is obtained via a review of his EMR. He is known to myself and the hospitalist service from a recent admission just last month in which he was admitted for severe sepsis related to left lower lobe pneumonia. He was also found to have bilateral DVTs and pulmonary embolism during that stay for which he was started on apixaban. He was discharged with a Palmer catheter for presumed neurogenic bladder and urology recommends indefinite monthly catheter changes. In any event, he has not been acting like himself the past couple of days and staff report that he is more confused and much less interactive than normal. They have also noted that his urine is cloudy and malodorous. He was afebrile on arrival to the ED with softer blood pressures. CMP, CBC, and lactic acid level were pretty unremarkable. Urine however was grossly purulent, nitrate negative,and positive for leukocyte esterase, rare bacteria, and greater than 100 WBC. A urine culture obtained on 02/17/2023 grew out pansensitive Pseudomonas aeruginosa and he was started on Zosyn in the emergency department. He is being admitted in this setting for further treatment. At the time my evaluation he looks ill in indicates that he does not feel well. He complains of pain on palpation of the lower abdomen. He does not specifically verbalize any complaints. Review of Systems Review of Systems: Unable to obtain accurately given current clinical condition as above. [facility] Past Medical History Medical History Chronic constipation Dyslipidemia Gastroesophageal reflux disease Neurogenic bladder Indwelling Palmer catheter. Paranoid schizophrenia Traumatic brain injury Surgical History Surgical History No history of major surgery within 1 month Family History Family History Father Heart problem Mother Heart problem Diabetes mellitus Sibling Diabetes mellitus Sibling Diabetes mellitus Sibling Diabetes mellitus Sibling Diabetes mellitus Social History Social History Social History: Surrogate medical decision maker: Kori Mckeon, sibling. Code status: Do not resuscitate. Smoking status: Never smoker Alcohol intake: never Substance use: never Spiritual care concerns: No Meds Home Medications and Allergies Home Medications Medication Instructions Recorded Confirmed Type aspirin 81 mg tablet,delayed 81 mg PO DAILY 07/08/21 02/27/23 History release divalproex 500 mg tablet,delayed 500 mg PO BID 07/08/21 02/27/23 History release fluoxetine 40 mg capsule 40 mg PO BID 07/08/21 02/27/23 History omeprazole 20 mg capsule,delayed 20 mg PO DAILY 07/08/21 02/27/23 History release acetaminophen 325 mg tablet 650 mg PO Q6H PRN Pain 01/18/23 02/27/23 History benztropine 1 mg tablet 1 mg PO Q12H 01/18/23 02/27/23 History buspirone 15 mg tablet 15 mg PO TID 01/18/23 02/27/23 History cholecalciferol (vitamin D3) 50 50 mcg PO DAILY 01/18/23 02/27/23 History mcg (2,000 unit) tablet divalproex 250 mg tablet,extended 250 mg PO BID 01/18/23 02/27/23 History release 24 hr fenofibrate 160 mg tablet 160 mg PO DAILY 01/18/23 02/27/23 History midodrine 10 mg tablet 10 mg PO TID 01/18/23 02/27/23 History ondansetron HCl 4 mg tablet 4 mg PO Q6H PRN Nausea 01/18/23 02/27/23 History potassium chloride 20 mEq 20 meq PO DAILY 01/18/23
[2023-02-27] MEDS: SODIUM CHLORIDE 0.9% IV 1,000 ML 125 ML IV CONT ×2 (16:32→23:48)
[2023-02-27] MEDS: PIPERACILLN/TAZ 3.375GM/NS50ML 3.375 GM/50 ML BAG IVPB ×2 (16:34→23:42)
--- NOTE | 2023-02-27 18:08 | ADMGEN ---
This patient, Josh Lo, was admitted to [facility] Room 317-01. Patient/family oriented to hospital policies and general routines including ID bracelet, bed and alarms, visiting hours, pain management, procedures, bathroom and other care routines, personal items, smoking policy, room service/diet, and visiting hours. Information on how to activate the Rapid Response Team has been discussed. Patient/Family are encouraged to report perceived risks to care and to ask questions if they do not understand what they are told or what they should do.
[2023-02-28] MEDS: PIPERACILLN/TAZ 3.375GM/NS50ML 3.375 GM/50 ML BAG IVPB ×3 (05:37→17:13)
[2023-02-28 06:00] VITALS: BP 119/81; PULSE 96; RESP 16; TEMP 36.4; O2SAT 100
[2023-02-28 06:30] LABS: Hematocrit 31.5 % (42.0-52.0); Mean Corpuscular HGB Conc 31.7 g/dl (32-36); Mean Corpuscular Hemoglobin 30.8 pg (26-34); Mean Corpuscular Volume 96.9 fl (80-100); Mean Platelet Volume 9.7 fl (7.4-10.4); Platelet Count Result 164 k/mm3 (150-375); Red Blood Count 3.25 M/mm3 (4.6-6.20); Red Cell Distribution Width 13.7 % (11.5-14.5); White Blood Count 6.5 K/mm3 (4.5-10.0)
[2023-02-28 06:42] LABS: Anion Gap 3 mmol/L (8-16); Blood Urea Nitrogen 14 mg/dL (9-20); Calcium 7.7 mg/dL (8.4-10.2); Carbon Dioxide 26 mmol/L (22-30); Chloride 109 mmol/L (98-107); Estimated CRCL calculation 120 ml/min; Estimated Glomerular Filt Rate > 60; Glucose 91 mg/dL (65-110); Potassium 3.2 mmol/L (3.4-5.0); Sodium 138 mmol/L (137-145)
[2023-02-28] MEDS: SODIUM CHLORIDE 0.9% IV 1,000 ML 125 ML IV CONT ×2 (09:50→20:58)
--- NOTE | 2023-02-28 12:15 | PM.IMPN ---
Progress Note: A&P Assessment and Plan (1) Acute metabolic encephalopathy: Code(s): G93.41 - Metabolic encephalopathy Status: Acute Assessment and Plan: Presented to the emergency department from his nursing facility for evaluation of altered mental status last couple of days. Urinalysis abnormal with leukocyte esterase, rare bacteria, and greater than 100 wbc's. Urine culture obtained about 10 days ago grew out pansensitive Pseudomonas aeruginosa. Most likely related to UTI or could be related to his previous TBI CT of the head no acute findings (2) Urinary tract infection: Qualifiers: Encounter type: subsequent encounter Indwelling urinary catheter type: indwelling urethral catheter Urinary tract infection type: catheter-associated UTI Qualified Code(s): T83.511D - Infection and inflammatory reaction due to indwelling urethral catheter, subsequent encounter; N39.0 - Urinary tract infection, site not specified Code(s): N39.0 - Urinary tract infection, site not specified Status: Acute Assessment and Plan: UA appears infectious Continue Zosyn Trend urine output Await urine culture results (3) Abnormal chest x-ray: Code(s): R93.89 - Abnormal findings on diagnostic imaging of other specified body structures Status: Acute Assessment and Plan: Chest xray shows PNA vs atelectasis Continue Zosyn at this time Sputum culture ordered Repeat chest xray in 2 days (4) Protein calorie malnutrition: Qualifiers: Protein-calorie malnutrition severity: mild Qualified Code(s): E44.1 - Mild protein-calorie malnutrition Code(s): E46 - Unspecified protein-calorie malnutrition Status: Acute Assessment and Plan: Moderate protein calorie malnutrition related to inadequate oral intake in the setting of acute illness Notable 10kg weight loss and missed meals Trend daily weights Recreation Therapist consults Supplements ordered Time Spent With Patient Time: 42 minutes Time with patient: Greater than 35 minutes Subjective Date/time seen: 02/28/23 1215 Interval history: 02/28/231214 patient was lying in bed. Patient did feed himself and was able to use the straw to get a drink. He was responsive in did answer my questions. He currently denies any chest pain, shortness a breath, nausea, vomiting, diarrhea constipation. He does seem to be very tired and just overall weak. 02/27/23? 17:00 This is a 53-year-old male with history of traumatic brain injury and schizophrenia who presented to the emergency department via EMS from [facility] for evaluation of altered mental status. He is not able to provide any meaningful history and as such majority the following is obtained via a review of his EMR. He is known to myself and the hospitalist service from a recent admission just last month in which he was admitted for severe sepsis related to left lower lobe pneumonia. He was also found to have bilateral DVTs and pulmonary embolism during that stay for which he was started on apixaban. Since that admission he has had an indwelling Palmer catheter due to neurogenic bladder and urology recommends indefinite monthly catheter changes. In any event, he has not been acting like himself over the past couple of days and staff report that he is more confused and much less interactive than normal. They have also noted that his urine is more cloudy and is malodorous. He was afebrile on arrival to the emergency department with soft blood pressures in the 90s over 70s. CMP, CBC, and lactic acid level were pretty unremarkable. Urine however was grossly purulent but was nitrate negative. It was positive for leukocyte esterase, rare bacteria, and greater than 100 WBC. A urine culture obtained on 02/17/2023 grew out pansensitive Pseudomonas aeruginosa and he was started on Zosyn in the emergency department.? He is being a
[2023-02-28 13:13] VITALS: BMI 21.2
[2023-02-28 14:00] VITALS: BP 117/72; PULSE 81; RESP 18; TEMP 35.9; O2SAT 100
[2023-02-28] MEDS: MIDODRINE HCL 10 MG TABLET PO ×2 (16:20→17:13)
[2023-02-28] MEDS: FLUoxetine HCL 20 MG CAPSULE 40 MG PO (17:12)
[2023-02-28] MEDS: SENNA/DOCUSATE SODIUM TABLET 1 TAB PO (17:13)
[2023-02-28] MEDS: DIVALPROEX SODIUM DR 250 MG TABEC 500 MG PO (20:55)
[2023-02-28] MEDS: BENZTROPINE MESYLATE 1 MG TABLET PO (20:55)
[2023-02-28] MEDS: busPIRone HCL 5 MG TABLET 15 MG PO (20:55)
[2023-02-28] MEDS: risperiDONE 1 MG TABLET 2 MG PO (20:55)
[2023-02-28] MEDS: APIXABAN 5 MG TABLET PO (20:56)
[2023-02-28] MEDS: DIVALPROEX SODIUM ER 250 MG TAB.24H PO (20:57)
[2023-02-28 21:00] VITALS: BP 123/91; PULSE 79; RESP 16; TEMP 36.1; O2SAT 100
[2023-03-01] MEDS: PIPERACILLN/TAZ 3.375GM/NS50ML 3.375 GM/50 ML BAG IVPB ×4 (00:57→16:59)
[2023-03-01] MEDS: busPIRone HCL 5 MG TABLET 15 MG PO ×3 (05:02→21:34)
[2023-03-01] MEDS: SODIUM CHLORIDE 0.9% IV 1,000 ML 125 ML IV CONT ×2 (05:02→15:36)
[2023-03-01] MEDS: risperiDONE 1 MG TABLET 2 MG PO ×3 (05:02→21:34)
[2023-03-01 05:18] VITALS: BP 117/84; PULSE 74; RESP 14; TEMP 36.1; O2SAT 100
[2023-03-01 06:38] LABS: Basophils Percent Auto 0.7 % (0.2-1.2); Eosinophils Absolute Auto 0.1 K/mm3 (0-0.3); Eosinophils Percent Auto 0.9 % (0-4.4); Hematocrit 33.1 % (42.0-52.0); Hemoglobin 10.5 g/dL (14.0-18.0); Immature Granulocyte Absolute 0.02 K/mm3 (0.00-0.031); Immature Granulocyte Percent A 0.4 % (0-0.5); Lymphocytes Absolute Auto 1.98 K/mm3 (0.9-3.2); Lymphocytes Percent Auto 35.7 % (18.3-44.2); Mean Corpuscular HGB Conc 31.7 g/dl (32-36); Mean Corpuscular Hemoglobin 30.7 pg (26-34); Mean Corpuscular Volume 96.8 fl (80-100); Mean Platelet Volume 9.6 fl (7.4-10.4); Monocytes Absolute Auto 0.5 K/mm3 (0.1-0.6); Monocytes Percent Auto 8.3 % (2.6-8.5); Platelet Count Result 220 k/mm3 (150-375); Red Blood Count 3.42 M/mm3 (4.6-6.20); Red Cell Distribution Width 13.5 % (11.5-14.5); White Blood Count 5.6 K/mm3 (4.5-10.0)
[2023-03-01 06:42] LABS: Alanine Aminotransferase 23 U/L (6-50); Albumin Level 2.6 g/dL (3.5-5.1); Alkaline Phosphatase 47 U/L (38-126); Anion Gap 6 mmol/L (8-16); Aspartate Amino Transferase 40 U/L (17-59); Bilirubin,Total 0.4 mg/dL (0.2-1.3); Blood Urea Nitrogen 8 mg/dL (9-20); Carbon Dioxide 25 mmol/L (22-30); Chloride 108 mmol/L (98-107); Estimated CRCL calculation 139 ml/min; Estimated Glomerular Filt Rate > 60; Glucose 89 mg/dL (65-110); Magnesium 1.9 mg/dL (1.6-2.3); Potassium 3.8 mmol/L (3.4-5.0); Sodium 139 mmol/L (137-145)
[2023-03-01 08:07] VITALS: O2SAT 95
[2023-03-01] MEDS: FLUoxetine HCL 20 MG CAPSULE 40 MG PO ×2 (09:03→15:40)
[2023-03-01] MEDS: CHOLECALCIFEROL 1,000 UNITS TABLET 2000 UNITS PO (09:04)
[2023-03-01] MEDS: PANTOPRAZOLE 40 MG TABLET PO (09:04)
[2023-03-01] MEDS: SENNA/DOCUSATE SODIUM TABLET 1 TAB PO ×2 (09:04→16:42)
[2023-03-01] MEDS: ATORVASTATIN 10 MG TABLET PO (09:04)
[2023-03-01] MEDS: DIVALPROEX SODIUM ER 250 MG TAB.24H PO ×2 (09:05→20:02)
[2023-03-01] MEDS: POTASSIUM CHLORIDE 20 MEQ ER TABLET PO (09:05)
[2023-03-01] MEDS: MIDODRINE HCL 10 MG TABLET PO ×3 (09:05→16:42)
[2023-03-01] MEDS: TAMSULOSIN HCL 0.4 MG CAPSULE PO (09:05)
[2023-03-01] MEDS: DIVALPROEX SODIUM DR 250 MG TABEC 500 MG PO ×2 (09:06→20:03)
[2023-03-01] MEDS: ASPIRIN 81 MG ENTERIC TABLET PO (09:06)
[2023-03-01] MEDS: FENOFIBRATE 160 MG TABLET PO (09:06)
[2023-03-01] MEDS: APIXABAN 5 MG TABLET PO ×2 (09:06→20:02)
[2023-03-01] MEDS: BENZTROPINE MESYLATE 1 MG TABLET PO ×2 (09:37→20:03)
--- NOTE | 2023-03-01 11:15 | P.PNIM_ITS ---
Progress Note: A&P Assessment and Plan (1) Acute metabolic encephalopathy: Code(s): G93.41 - Metabolic encephalopathy Status: Acute Assessment and Plan: * Presented to the emergency department from his nursing facility for evaluation of altered mental status last couple of days. * Urinalysis abnormal with leukocyte esterase, rare bacteria, and greater than 100 wbc's. * Urine culture obtained about 10 days ago grew out pansensitive Pseudomonas aeruginosa. * Most likely related to UTI or could be related to his previous TBI * CT of the head no acute findings * Seems to be resolving * UTI grew yeast, chest xray shows possible pneumonia (2) Urinary tract infection: Qualifiers: Encounter type: subsequent encounter Indwelling urinary catheter type: indwelling urethral catheter Urinary tract infection type: catheter-associated UTI Qualified Code(s): T83.511D - Infection and inflammatory reaction due to indwelling urethral catheter, subsequent encounter; N39.0 - Urinary tract infection, site not specified Code(s): N39.0 - Urinary tract infection, site not specified Status: Acute Assessment and Plan: * UA appears infectious * Continue Zosyn * Trend urine output * Urine culture grew yeast (3) Abnormal chest x-ray: Code(s): R93.89 - Abnormal findings on diagnostic imaging of other specified body structures Status: Acute Assessment and Plan: * Chest xray shows PNA vs atelectasis * Continue Zosyn at this time * Sputum culture ordered * Repeat chest xray in 2 days (4) Protein calorie malnutrition: Qualifiers: Protein-calorie malnutrition severity: mild Qualified Code(s): E44.1 - Mild protein-calorie malnutrition Code(s): E46 - Unspecified protein-calorie malnutrition Status: Acute Assessment and Plan: * Moderate protein calorie malnutrition related to inadequate oral intake in the setting of acute illness * Notable 10kg weight loss and missed meals * Trend daily weights * Chemical Production Engineer consults * Supplements ordered (5) Paranoid schizophrenia: Code(s): F20.0 - Paranoid schizophrenia Status: Acute Assessment and Plan: * Continue home medications * Risperdal 2mg TID, buspar 15mg PO TID, Fluoxetine 40mg PO BID * Could be the reason for the patient having episodes of confusion * Continue to trend mental status * Seems stable (6) Pneumonia: Qualifiers: Pneumonia type: due to unspecified organism Laterality: unspecified laterality Lung location: unspecified part of lung Qualified Code(s): J18.9 - Pneumonia, unspecified organism Code(s): J18.9 - Pneumonia, unspecified organism Status: Acute Assessment and Plan: * Chest xray shows possible PNA vs atelectasis * Continue current antibiotics * Chest xray in the am * Adjust therapy as indicated Plan Known History of DVT Left leg is more swollen than right leg Venous doppler ordered Eliquis has been continued Time Spent With Patient Time: 47 minutes Time with patient: Greater than 35 minutes Subjective Date/time seen: 03/01/231114 Interval history: 03/01/231114 Patient seems to be much more alert and oriented today. He is a lot more talkative as well. He denies any chest pain, shortness a breath, nausea, vomiting. He does seem to have celso
--- NOTE | 2023-03-01 11:15 | PM.IMPN ---
Progress Note: A&P Assessment and Plan (1) Acute metabolic encephalopathy: Code(s): G93.41 - Metabolic encephalopathy Status: Acute Assessment and Plan: Presented to the emergency department from his nursing facility for evaluation of altered mental status last couple of days. Urinalysis abnormal with leukocyte esterase, rare bacteria, and greater than 100 wbc's. Urine culture obtained about 10 days ago grew out pansensitive Pseudomonas aeruginosa. Most likely related to UTI or could be related to his previous TBI CT of the head no acute findings Seems to be resolving UTI grew yeast, chest xray shows possible pneumonia (2) Urinary tract infection: Qualifiers: Encounter type: subsequent encounter Indwelling urinary catheter type: indwelling urethral catheter Urinary tract infection type: catheter-associated UTI Qualified Code(s): T83.511D - Infection and inflammatory reaction due to indwelling urethral catheter, subsequent encounter; N39.0 - Urinary tract infection, site not specified Code(s): N39.0 - Urinary tract infection, site not specified Status: Acute Assessment and Plan: UA appears infectious Continue Zosyn Trend urine output Urine culture grew yeast (3) Abnormal chest x-ray: Code(s): R93.89 - Abnormal findings on diagnostic imaging of other specified body structures Status: Acute Assessment and Plan: Chest xray shows PNA vs atelectasis Continue Zosyn at this time Sputum culture ordered Repeat chest xray in 2 days (4) Protein calorie malnutrition: Qualifiers: Protein-calorie malnutrition severity: mild Qualified Code(s): E44.1 - Mild protein-calorie malnutrition Code(s): E46 - Unspecified protein-calorie malnutrition Status: Acute Assessment and Plan: Moderate protein calorie malnutrition related to inadequate oral intake in the setting of acute illness Notable 10kg weight loss and missed meals Trend daily weights Tarring Machine Operator consults Supplements ordered (5) Paranoid schizophrenia: Code(s): F20.0 - Paranoid schizophrenia Status: Acute Assessment and Plan: Continue home medications Risperdal 2mg TID, buspar 15mg PO TID, Fluoxetine 40mg PO BID Could be the reason for the patient having episodes of confusion Continue to trend mental status Seems stable (6) Pneumonia: Qualifiers: Pneumonia type: due to unspecified organism Laterality: unspecified laterality Lung location: unspecified part of lung Qualified Code(s): J18.9 - Pneumonia, unspecified organism Code(s): J18.9 - Pneumonia, unspecified organism Status: Acute Assessment and Plan: Chest xray shows possible PNA vs atelectasis Continue current antibiotics Chest xray in the am Adjust therapy as indicated Plan Known History of DVT Left leg is more swollen than right leg Venous doppler ordered Chelsie has been continued Time Spent With Patient Time: 47 minutes Time with patient: Greater than 35 minutes Subjective Date/time seen: 03/01/231114 Interval history: 03/01/231114 Patient seems to be much more alert and oriented today. He is a lot more talkative as well. He denies any chest pain, shortness a breath, nausea, vomiting. He does seem to have some pain however he has not really vocal about telling me. When asked about his abdomen or groin pain he did state that he was a little. His penis does look a little macerated most likely related to the rubbing of the Palmer catheter. it does appear that he does feel better. Did a full skin check and he does not have any open wounds except for the right heel. His left leg appears to be very swollen compared to his right leg which has no swelling. Patient does have DVTs in his history will do a venous Doppler at this time. Sister was in the room and
[2023-03-01 13:50] VITALS: BP 100/68; PULSE 76; RESP 14; TEMP 36.2; O2SAT 100
[2023-03-01 22:00] VITALS: BP 112/86; PULSE 89; RESP 14; TEMP 36.6; O2SAT 100
[2023-03-02] MEDS: SODIUM CHLORIDE 0.9% IV 1,000 ML 125 ML IV CONT ×2 (00:01→09:30)
[2023-03-02] MEDS: PIPERACILLN/TAZ 3.375GM/NS50ML 3.375 GM/50 ML BAG IVPB ×3 (00:02→11:30)
[2023-03-02] MEDS: risperiDONE 1 MG TABLET 2 MG PO ×2 (06:00→14:50)
[2023-03-02] MEDS: busPIRone HCL 5 MG TABLET 15 MG PO ×2 (06:00→14:50)
[2023-03-02] MEDS: MIDODRINE HCL 10 MG TABLET PO ×2 (09:30→16:55)
[2023-03-02] MEDS: PANTOPRAZOLE 40 MG TABLET PO (09:30)
[2023-03-02] MEDS: DIVALPROEX SODIUM ER 250 MG TAB.24H PO (09:30)
[2023-03-02] MEDS: SENNA/DOCUSATE SODIUM TABLET 1 TAB PO ×2 (09:30→16:55)
[2023-03-02] MEDS: CHOLECALCIFEROL 1,000 UNITS TABLET 2000 UNITS PO (09:30)
[2023-03-02] MEDS: POTASSIUM CHLORIDE 20 MEQ ER TABLET PO (09:30)
[2023-03-02] MEDS: BENZTROPINE MESYLATE 1 MG TABLET PO (09:30)
[2023-03-02] MEDS: TAMSULOSIN HCL 0.4 MG CAPSULE PO (09:30)
[2023-03-02] MEDS: APIXABAN 5 MG TABLET PO (09:30)
[2023-03-02] MEDS: DIVALPROEX SODIUM DR 250 MG TABEC 500 MG PO (09:30)
[2023-03-02] MEDS: FENOFIBRATE 160 MG TABLET PO (09:30)
[2023-03-02] MEDS: ATORVASTATIN 10 MG TABLET PO (09:30)
[2023-03-02] MEDS: FLUoxetine HCL 20 MG CAPSULE 40 MG PO ×2 (09:30→16:15)
[2023-03-02] MEDS: polyethylene glycoL 3350 17 GM POWD.PACK PO (09:30)
[2023-03-02] MEDS: ASPIRIN 81 MG ENTERIC TABLET PO (09:30)
--- NOTE | 2023-03-02 10:15 | PCNFU ---
Addendum entered by Kesha Marte, RD, LDN 03/03/23 08:04: Nutrition Follow-Up Complete: Moderate protein calorie malnutrition related to inadequate oral intake in the setting of acute illness as evidenced by noted significant weight loss and inadquate energy intake. PO intake greater than 50% of meals and supplements - not meeting goal Goal: Pt current nutrition is Regular diet, needs fed. Ensure Enlive TID for additional 350 kcals and 20 g protein each. Intakes are poor. Nutrition recommendation: Continue current care plan Last recorded weight is 70 kg. Bowel Motility: Last BM recorded 03/01/23 Labs Reviewed: Alb 2.6, BUN 8, Cre 0.5 Meds Noted: Zofran Skin: Pressure areas to heels Additional Notes: This is late entry/ downtime documentation. Spoke to RN and tech. Pt is not eating and holding his mouth when they try to feed him. Tech says his oral hygiene is poor. Pt is total care at [place]. Monitor intake, alert/oriented status, wt, labs. Follow up in 3 days. Original Note: Nutrition Follow-Up Complete: Moderate protein calorie malnutrition related to inadequate oral intake in the setting of acute illness as evidenced by noted significant weight loss and inadquate energy intake. PO intake greater than 50% of meals and supplements Goal: Pt current nutrition is . Nutrition recommendation: Last recorded weight is 70 kg. Bowel Motility: Labs Reviewed: Meds Noted: Skin: Additional Notes: Monitor intake, alert/oriented status, wt, labs. Follow up in 3 days.
--- NOTE | 2023-03-02 13:10 | DS_ITS ---
The patient is a 53-year-old male with a past medical history of TBI and paranoid schizophrenia presented to the ED with altered mental status. ADMITTING DIAGNOSES Acute metabolic encephalopathy.? Pneumonia.? Protein-calorie malnutrition.? FINAL DIAGNOSES Acute metabolic encephalopathy.? Urinary tract infection.? Protein-calorie malnutrition.? Paranoid schizophrenia.? Pneumonia.? Recurrent deep venous thrombosis.? HOSPITAL COURSE The patient was hospitalized for acute metabolic encephalopathy. ?The patient was noted upon arrival that to be A and O x1-2 per [facility]. ?The patient had recently been here for severe sepsis and therapy for an acute UTI. ?The patient did receive full therapy for his UTI and at that time, was found to have a pulmonary embolism and a DVT in bilateral lower extremities. ?At that time, the patient was started on Eliquis and Eliquis has been resumed. Upon arrival to the ED, the patient was noted to have an abnormal UA, which did come back as yeast. ?The patient had been started on Zosyn and ceftriaxone for the treatment of UTI and for pneumonia. ?Chest x-ray did show pneumonia versus atelectasis. ?Serum culture was ordered; however, was never collected. ?Mental status has improved been on the antibiotics. ?Head CT done upon arrival showed no acute findings. ?The patient's medications from home including Risperdal, BuSpar, and duloxetine had all been resumed through the admission. ?The patient does have a chronic urinary catheter due to neurogenic bladder and retention. ?Labs and vital signs remained stable at this time. ?Venous Doppler of the left leg was performed and did show a DVT with no significant change since the 01 March. PHYSICAL EXAMINATION GENERAL: ?Well-nourished, well-appearing 53-year-old male, lying in bed, comfortable, sleeping. ?The patient did arouse easily and was alert and oriented x4. ?Speech has been clear with no focal neurological deficits noted. HEENT: ?Head is nontraumatic and normocephalic. ?Sclerae are normal. ?Mucous membranes are moist. LUNGS: ?Clear bilaterally without crackles, rhonchi, or wheezes, and nonlabored breathing. HEART: ?The patient has regular rate and rhythm with S1 and S2. ?No murmurs present. EXTREMITIES: ?3 to 4+ pitting edema in the left lower extremity. ?No erythema or tenderness. ?Pulses are 2+ bilaterally in upper and lower extremities. SKIN: ?Shows no rashes or lesions. ?Warm and dry. ?Left heel does have a small abrasion, which appears to be healing appropriately. NEUROLOGIC: ?The patient does have an appropriate mood and affect. ?Judgment and insight are intact. The patient is stable upon discharge including labs and vital signs. ?Condition has improved. ?The patient will be going back to [facility] for further care. ?The patient should follow up with his primary care provider in 1 to 2 weeks. ?The patient will complete antibiotic therapy. DISCHARGE INSTRUCTIONS Diet: Advanced to home diet as tolerated.? Activity: ?Ambulate or transfer to chair with assistance.? Followup: ?With Primary Care in 1 week.? Medications: ?Per medication list, which will be completed by myself and new prescriptions will also be sent to the [facility].? SUDHA
--- NOTE | 2023-03-02 19:19 | PC.NURSE ---
Paper documentation exists on this patient due to [employer] downtime on 03/02/23 from 0030 to 1930 .
[2023-03-07 15:37] LABS: EDCOVIDSCREEN Negative (Negative)
== END 2023-03-02 18:00 | disposition home or self-care (01) ==
LOC: ANHED 16:24 → ANH3MEDSUR 16:59
PROVIDERS: Nurse Practitioner; Physician Assistant; Admitting Provider Family Medicine; Emergency Provider Emergency Medicine; PCP Internal Medicine; Visit Provider Family Medicine
DX: G93.41 Metabolic encephalopathy (principal); B37.49 Other urogenital candidiasis; T83.511D Infection and inflammatory reaction due to indwelling urethral catheter, subsequent encounter; Z68.20 Body mass index [BMI] 20.0-20.9, adult; E44.1 Mild protein-calorie malnutrition; J18.9 Pneumonia, unspecified organism; F20.0 Paranoid schizophrenia; R93.89 Abnormal findings on diagnostic imaging of other specified body structures; E78.5 Hyperlipidemia, unspecified; K21.9 Gastro-esophageal reflux disease without esophagitis; K59.09 Other constipation; I82.412 Acute embolism and thrombosis of left femoral vein; I82.432 Acute embolism and thrombosis of left popliteal vein; N31.9 Neuromuscular dysfunction of bladder, unspecified; D72.829 Elevated white blood cell count, unspecified; Z96.0 Presence of urogenital implants; Z20.822 Contact with and (suspected) exposure to COVID-19; Z87.820 Personal history of traumatic brain injury; Z79.1 Long term (current) use of non-steroidal anti-inflammatories (NSAID); Z79.01 Long term (current) use of anticoagulants; Z79.82 Long term (current) use of aspirin; Z79.899 Other long term (current) drug therapy
CPT/HCPCS: 36415; 36600; 51702; 70450; 71045; 80048; 80053; 80307; 81001; 82805; 83605; 83735; 84484; 85025; 85027; 85610; 85730; 87040; 87086; 87426; 93005; 93971; 96361; 96365; 96367; 99285; A9270; C9803; G0378; J0696; J2543; J7030

== ENCOUNTER 2023-04-01 06:14 | Inpatient (IN) | payer OTHER, SELFPAY ==
[2023-04-01] VITALS (53 sets, daily range): BP systolic 48–203; BP diastolic 29–167; PULSE 68–137; RESP 13–33; TEMP 36.6–37.7; O2SAT 95–100
--- NOTE | ~2023-04-01 | CT_ITS ---
Non-contrast CT scan of the Abdomen and Pelvis Clinical indication: Hematuria Technique: 2.5 mm axial scans were obtained through the abdomen and pelvis without intravenous or or al contrast. Dose reduction technique was used on this scan by utilizing automated exposure control a nd iterative reconstruction technique. The dose-length product (DLP) was 460.93 mGy-cm. COMPARISON: 02/06/2023 Findings: Images through the lung bases reveal no abnormalities. There is no evidence of renal or ureteral calculi. The kidneys and the ureters are nondilated. Multip le right renal cysts are present. The liver, spleen, pancreas, gallbladder, and adrenals appear normal. There is no aortic aneurysm. There is no evidence of bowel obstruction. Suggestion of fecal impaction and constipation, with large stool burden. Probable mild stercoral proctitis. Images through the pelvis were performed. There is no evidence of ascites or lymphadenopathy. Cathete r in place in the urinary bladder. Urinary bladder is distended with moderate to large amount of hype rdense blood products. No definite intraluminal mass appreciated on this exam. Impression: Large amount of blood products distending the urinary bladder. Precise etiology for hemorrhage/hemorr hagic material within the bladder is unclear. Probable fecal impaction with stercoral proctitis and associated constipation. Reviewed, dictated and finalized at location . Impression: Large amount of blood products distending the urinary bladder. Precise etiology for hemorrhage/hemorrhagic material within the bladder is unclear. Probable fecal impaction with stercoral proctitis and associated constipation.
--- NOTE | 2023-04-01 06:20 | ECG_ITS ---
Measurements Intervals [place] Rate: 136 P: 84 [place]: 129 QRS: 74 QRSD: 82 T: 69 QT: 288 QTc: 433 Interpretive Statements SINUS TACHYCARDIA BORDERLINE ST ABNORMALITY- LATERAL LEADS ABNORMAL ECG COMPARED TO ECG 02/27/2023 14:39:[address] PRESENT [address] DEVIATION NOW PRESENT Electronically Signed On 04-01-2023 6:47:51 CDT by Alen Warren D.O.
[2023-04-01 06:32] LABS: Glucose Point of Care 157 mg/dl (65-105)
[2023-04-01] MEDS: LACTATED RINGERS 1,000 ML 999 ML IV CONT (06:33)
[2023-04-01 06:38] LABS: Basophils Absolute Auto 0.1 K/mm3 (0.0-0.1); Basophils Percent Auto 0.4 % (0.2-1.2); Hematocrit 21.4 % (42.0-52.0); Immature Granulocyte Absolute 0.99 K/mm3 (0.00-0.031); Immature Granulocyte Percent A 5.8 % (0-0.5); Lymphocytes Absolute Auto 1.73 K/mm3 (0.9-3.2); Lymphocytes Percent Auto 10.1 % (18.3-44.2); Mean Corpuscular HGB Conc 30.4 g/dl (32-36); Mean Corpuscular Hemoglobin 30.4 pg (26-34); Mean Platelet Volume 10.2 fl (7.4-10.4); Monocytes Absolute Auto 1.9 K/mm3 (0.1-0.6); Neutrophils Absolute Auto 12.4 K/mm3 (1.3-6.7); Neutrophils Percent Auto 72.7 % (45.5-73.1); Platelet Count Result 343 k/mm3 (150-375); Red Blood Count 2.14 M/mm3 (4.6-6.20); Red Cell Distribution Width 15.6 % (11.5-14.5); White Blood Count 17.1 K/mm3 (4.5-10.0)
[2023-04-01 06:48] LABS: Albumin Level 2.4 g/dL (3.5-5.1); Alkaline Phosphatase 63 U/L (38-126); Anion Gap 14 mmol/L (8-16); Aspartate Amino Transferase 36 U/L (17-59); Bilirubin,Total 0.4 mg/dL (0.2-1.3); Blood Urea Nitrogen 11 mg/dL (9-20); Calcium 8.8 mg/dL (8.4-10.2); Carbon Dioxide 16 mmol/L (22-30); Chloride 106 mmol/L (98-107); Estimated CRCL calculation 60 ml/min; Estimated Glomerular Filt Rate > 60; Glucose 152 mg/dL (65-110); Potassium 4.5 mmol/L (3.4-5.0); Sodium 136 mmol/L (137-145)
[2023-04-01 06:51] LABS: INR 1.5; Prothrombin Time 18.9 Seconds (11.1-14.7)
[2023-04-01 06:54] LABS: Alanine Aminotransferase 33 U/L (6-50)
[2023-04-01 06:56] LABS: Hemoglobin 6.5 g/dL (14.0-18.0)
--- NOTE | 2023-04-01 06:59 | ED.GENADULT ---
HPI - General Adult General Chief complaint: Altered Mental Status Stated complaint: AMSalt Time Seen by Provider: 04/01/23 06:22 History of Present Illness HPI narrative: Patient is a 53-year-old male who [facility] for [facility] status. Patient has history of traumatic brain injury and is confused at baseline. Patient hypotensive for EMS. Diaper found to be full blood. Patient is on Eliquis. POLST form shows that patient is comfort care only and a DNR. I've been in touch with patient's Sister Kori and she would only like supportive care and no invasive procedures. She also declined blood transfusion. She reports that he has been less vigorous over the last couple of days. Related Data Home Medications Medication Instructions Recorded Confirmed aspirin 81 mg tablet,delayed 81 mg PO DAILY 07/08/21 04/01/23 release divalproex 500 mg tablet,delayed 500 mg PO BID 07/08/21 04/01/23 release fluoxetine 40 mg capsule 40 mg PO BID 07/08/21 04/01/23 omeprazole 20 mg capsule,delayed 20 mg PO DAILY 07/08/21 04/01/23 release acetaminophen 325 mg tablet 650 mg PO Q6H PRN Pain 01/18/23 04/01/23 benztropine 1 mg tablet 1 mg PO Q12H 01/18/23 04/01/23 buspirone 15 mg tablet 15 mg PO TID 01/18/23 04/01/23 cholecalciferol (vitamin D3) 50 50 mcg PO DAILY 01/18/23 04/01/23 mcg (2,000 unit) tablet divalproex 250 mg tablet,extended 250 mg PO BID 01/18/23 04/01/23 release 24 hr fenofibrate 160 mg tablet 160 mg PO DAILY 01/18/23 04/01/23 midodrine 10 mg tablet 10 mg PO TID 01/18/23 04/01/23 ondansetron HCl 4 mg tablet 4 mg PO Q6H PRN Nausea 01/18/23 04/01/23 potassium chloride 20 mEq 20 meq PO DAILY 01/18/23 04/01/23 tablet,extended release(part/cryst) atorvastatin 10 mg tablet 10 mg PO DAILY 02/27/23 04/01/23 risperidone 2 mg tablet 2 mg PO TID 02/27/23 04/01/23 sennosides 8.6 mg-docusate sodium 1 tab-cap PO BID 02/27/23 04/01/23 50 mg tablet (Senokot-S) vibegron 75 mg tablet (Gemtesa) 75 mg PO DAILY 03/07/23 04/01/23 Allergies Allergy/AdvReac Type Severity Reaction Status Date / Time No Known Allergies Allergy Verified 04/01/23 16:45 Review of Systems Review of Systems: ROS unobtainable: Yes unobtainable due to medical condition PMFSH Past Medical History Medical History (Updated 04/01/23 @ 18:34 by Lauri Washington MD) Altered mental status Chronic constipation Dyslipidemia Gastroesophageal reflux disease Neurogenic bladder Indwelling Palmer catheter. Obstructive sleep apnea Paranoid schizophrenia Pulmonary embolism Traumatic brain injury Surgical History Surgical History No history of major surgery within 1 month Family History Family History Father Heart problem Mother Heart problem Diabetes mellitus Sibling Diabetes mellitus Sibling Diabetes mellitus Sibling Diabetes mellitus Sibling Diabetes mellitus Social History Social History Social History: Surrogate medical decision maker: Kori Mike, sibling. Code status: Do not resuscitate. Smoking status: Never smoker Alcohol intake: never Substance use: never Substance use type: does not use Living arrangements: [facility] Gender identity (if verbalized by the patient): Male Spiritual care concerns: No Exam Narrative: GENERAL: Chronically ill-appearing, well-nourished, and in no acute distress. HEAD: Normocephalic, atraumatic. EYES: PERRL and EOMI. ENT: Dry mucous membranes. CHEST: Clear to auscultation. No respiratory distress. HEART: Tachycardic and regular. Normal peripheral pulses. ABDOMEN: Soft, nontender, nondistended. Rectal exam with normal stool. EXTREMITIES: Normal range of motion. 1+ edema. SKIN: Warm, dry, no rash. NEURO: Awake and alert. Not oriented, not speaking. Does not follow commands bu
[2023-04-01 07:03] LABS: Platelet Clumps Present; Platelet Estimate Adequate (Adequate)
[2023-04-01 07:04] LABS: Anisocytosis 1+ (NORMAL); Hypochromasia 1+ (NORMAL); Microcytosis 1+ (NORMAL)
[2023-04-01 07:05] LABS: Crenated RBC 1+ (NORMAL); Giant Platelets Present; Partial Thromboplastin Time 30.4 SECONDS (22.3-36.8); Schistocytes None Seen (NORMAL)
[2023-04-01] MEDS: SODIUM CHLORIDE 0.9% IV 1,000 ML 999 ML IV CONT ×3 (07:37→23:50)
[2023-04-01 07:40] LABS: Add Urine Microscopic? YES
[2023-04-01 07:42] LABS: Appearance Urine Turbid (Clear); Color Urine Red (Yellow); RBC Urine >100 /hpf (0-2)
[2023-04-01 07:55] LABS: Bacteria Urine Trace /hpf
--- NOTE | 2023-04-01 11:14 | PC.NURSE ---
Patient report received from WILLIAM Bradford. All questions answered and care of patient assumed.
[2023-04-01] MEDS: LIDOCAINE HCL 2% GEL UROJET 10 ML PKG (11:21)
--- NOTE | 2023-04-01 11:47 | PC.NURSE ---
Patient off unit to CT.
--- NOTE | 2023-04-01 12:10 | WPDURCON ---
Assessment and Plan Assessment and plan (1) Gross hematuria: Code(s): R31.0 - Gross hematuria Status: Acute Assessment and Plan: spoke with the sister. They are taking the DNR off for cystoscopy and clot evacuation. They want him to be comfortable. He obviously appears uncomfortable due to clot retention. He be taken to the operating room somewhat urgently this afternoon for cystoscopy with removal of clots. I discussed the risks of bleeding, infection, inability to resolve the bleeding. The sister agreed to proceed (2) Anemia: Code(s): D64.9 - Anemia, unspecified Status: Acute Assessment and Plan: at current the family is unwilling to accept a blood transfusion. I have asked him to reconsider. they will update the staff if they do Urology Consult Note HPI Date Seen: 04/01/23 Requesting Physician: Dana Kellogg DO Primary Care Provider: Priyank Daugherty, Consult Narrative Narrative: Josh Lo is a 53 year old male he resides in long-term. He is largely non communicative. He has had a traumatic brain injury. I have spoken to his sister's on the phone. He was brought in the hospital from the long-term with a change in mental status. They found a diaper full of blood. Palmer catheter was placed and attempts were made to irrigate the bladder. There were unsuccessful due to a large number of blood clots. I viewed the CT scan which is begun the ER he has a large volume of blood in his bladder. He also is anemic. At the present time his sister's declined blood transfusion. He is DNR but they would like can be made comfortable so they will are open to him having a cystoscopy evacuation of clots. Examination of the patient the bedside reveals him to be uncomfortable and he points towards the suprapubic area. Otherwise he is largely unable to communicate. Review of Systems Review of Systems: unable to communicate I have spoken to his sister PMFSH Past Medical History Medical History Chronic constipation Dyslipidemia Gastroesophageal reflux disease Neurogenic bladder Indwelling Palmer catheter. Paranoid schizophrenia Traumatic brain injury Surgical History Surgical History No history of major surgery within 1 month Family History Family History Father Heart problem Mother Heart problem Diabetes mellitus Sibling Diabetes mellitus Sibling Diabetes mellitus Sibling Diabetes mellitus Sibling Diabetes mellitus Social History Social History Social History: Surrogate medical decision maker: Kori Mckeon, sibling. Code status: Do not resuscitate. Smoking status: Never smoker Alcohol intake: never Substance use: never Living arrangements: long-term Gender identity (if verbalized by the patient): Male Spiritual care concerns: No Meds Home Medications and Allergies Home Medications Medication Instructions Recorded Confirmed Type aspirin 81 mg tablet,delayed 81 mg PO DAILY 07/08/21 02/27/23 History release divalproex 500 mg tablet,delayed 500 mg PO BID 07/08/21 02/27/23 History release fluoxetine 40 mg capsule 40 mg PO BID 07/08/21 02/27/23 History omeprazole 20 mg capsule,delayed 20 mg PO DAILY 07/08/21 02/27/23 History release acetaminophen 325 mg tablet 650 mg PO Q6H PRN Pain 01/18/23 02/27/23 History benztropine 1 mg tablet 1 mg PO Q12H 01/18/23 02/27/23 History buspirone 15 mg tablet 15 mg PO TID 01/18/23 02/27/23 History cholecalciferol (vitamin D3) 50 50 mcg PO DAILY 01/18/23 02/27/23 History mcg (2,000 unit) tablet divalproex 250 mg tablet,extended 250 mg PO BID 01/18/23 02/27/23 History release 24 hr fenofibrate 160 mg tablet 160 mg PO DAILY
--- NOTE | 2023-04-01 12:56 | WPDANESEPPF ---
Anes - Initial Pre Proc Eval Procedure: Operation Date: 04/01/23 13:45 Proposed Procedures p Cystoscopy, Evacuation Bladder Clots - Kel De La Fuente MD Date/Time: 04/01/23 12:56 Surgeon: Dana Kellogg DO Pre Op Diagnosis: Urinary Retention, Hematuria, Anemia Patient Data Age: 53 Gender: M Height: 1.75 m Weight: 68 kg Last Vital Signs Temp 37.1 C 04/01/23 06:20 Pulse 116 H 04/01/23 11:03 Resp 17 04/01/23 11:03 BP 84/60 L 04/01/23 11:03 Pulse Ox 95 04/01/23 10:15 O2 Del Method Room Air 04/01/23 06:20 Allergies Allergy/AdvReac Type Severity Reaction Status Date / Time No Known Allergies Allergy Verified 03/07/23 13:39 Home Medications Medication Instructions Recorded Confirmed Type aspirin 81 mg tablet,delayed 81 mg PO DAILY 07/08/21 02/27/23 History release divalproex 500 mg tablet,delayed 500 mg PO BID 07/08/21 02/27/23 History release fluoxetine 40 mg capsule 40 mg PO BID 07/08/21 02/27/23 History omeprazole 20 mg capsule,delayed 20 mg PO DAILY 07/08/21 02/27/23 History release acetaminophen 325 mg tablet 650 mg PO Q6H PRN Pain 01/18/23 02/27/23 History benztropine 1 mg tablet 1 mg PO Q12H 01/18/23 02/27/23 History buspirone 15 mg tablet 15 mg PO TID 01/18/23 02/27/23 History cholecalciferol (vitamin D3) 50 50 mcg PO DAILY 01/18/23 02/27/23 History mcg (2,000 unit) tablet divalproex 250 mg tablet,extended 250 mg PO BID 01/18/23 02/27/23 History release 24 hr fenofibrate 160 mg tablet 160 mg PO DAILY 01/18/23 02/27/23 History midodrine 10 mg tablet 10 mg PO TID 01/18/23 02/27/23 History ondansetron HCl 4 mg tablet 4 mg PO Q6H PRN Nausea 01/18/23 02/27/23 History potassium chloride 20 mEq 20 meq PO DAILY 01/18/23 02/27/23 History tablet,extended release(part/cryst) apixaban 5 mg tablet (Eliquis) 5 mg PO Q12HR #60 tabs 01/28/23 02/27/23 Rx polyethylene glycol 3350 17 gram 17 g PO QAM #14 ea 01/28/23 02/27/23 Rx oral powder packet (Miralax) tamsulosin 0.4 mg capsule 0.4 mg PO QAM #30 caps 01/28/23 02/27/23 Rx atorvastatin 10 mg tablet 10 mg PO DAILY 02/27/23 02/27/23 History risperidone 2 mg tablet 2 mg PO TID 02/27/23 02/27/23 History sennosides 8.6 mg-docusate sodium 1 tab-cap PO BID 02/27/23 02/27/23 History 50 mg tablet (Senokot-S) vibegron 75 mg tablet (Gemtesa) 75 mg PO DAILY 03/07/23 History Laboratory Tests 04/01/23 04/01/23 04/01/23 06:29 06:31 06:56 WBC 17.1 H K/mm3 (4.5-10.0) RBC 2.14 L M/mm3 (4.6-6.20) Hgb 6.5 L* D g/dL (14.0-18.0) Hct 21.4 L % (42.0-52.0) MCV 100.0 fl (80-100) MCH 30.4 pg (26-34) MCHC 30.4 L g/dl (32-36) RDW 15.6 H % (11.5-14.5) Plt Count 343 D k/mm3 (150-375) MPV 10.2 fl (7.4-10.4) Immature Gran % (Auto) 5.8 H % (0-0.5) Neut % (Auto) 72.7 % (45.5-73.1) Lymph % (Auto) 10.1 L % (18.3-44.2) Bowie % (Auto) 11.0 H % (2.6-8.5) Eos % (Auto) 0.0 % (0-4.4) Baso % (Auto) 0.4 % (0.2-1.2) Lymph # (Auto) 1.73 K/mm3 (0.9-3.2) Bowie # (Auto) 1.9 H K/mm3 (0.1-0.6) Eos # (Auto) 0.0 K/mm3 (0-0.3) Baso # (Auto) 0.1 K/mm3 (0.0-0.1) Abs Immat Gran (auto) 0.99 H K/mm3 (0.00-0.031) Absolute Neuts (auto) 12.4 H K/mm3 (1.3-6.7) Absolute Nucleated RBC 0.0 K/mm3 (0.0-0.012) Nucleated RBC % 0.0 % (0.0-0.2) Platelet Estimate Adequate (Adequate) Clumped Platelets Present Giant Platelets Present Hypochromasia 1+ (NORMAL) Anisocytosis 1+ (NORMAL) Microcytosis 1+ (NORMAL) Crenated Cell 1+ (NORMAL) Schistocytes None seen (NORMAL) PT 18.9 H Seconds (11.1-14.7) INR 1.5 APTT 30.4 SECONDS (22.3-36.8) Sodium 136 L mmol/L
--- NOTE | 2023-04-01 13:22 | WPDHPUPDATE1 ---
History and Physical Update Update Date/Time: 04/01/23 13:22 History and Physical has been reviewed, including an updated exam of the patient. There are NO changes in the patient's condition. Risks, benefits, and alternatives have been discussed and questions answered. Patient agrees to proceed with procedure. Proceed with cystoscopy with clot evacuation
[2023-04-01] MEDS: ceFAZolin 2 GM/D5W 50 ML 2 GM/50 ML BAG IVPB (13:47)
[2023-04-01] MEDS: LACTATED RINGERS 1,000 ML 30 ML IV CONT (13:54)
[2023-04-01] MEDS: LIDOCAINE HCL 2% GEL UROJET 10 ML PKG MUCOUS MEM ×2 (14:05→14:06)
--- NOTE | 2023-04-01 14:24 | P.OP_ITS ---
Procedure Note - Detailed Date of Procedure 04/01/23 Pre-op Diagnosis Urinary Retention, Hematuria, Anemia Post-op Diagnosis Same Procedure Performed Cystoscopy with clot evacuation, bladder biopsy with fulguration, complex Palmer catheter placement Surgeon Kel De La Fuente MD Anesthesia MAC and Local Findings Approximately 6-700 cc of clot in the bladder. This originated from the dome of the area where the tissue was hard irregular. I took a biopsy of this area. Description of Procedure Patient is taken to the operative suite correctly identified. Once anesthesia was obtained was placed in dorsal lithotomy position and prepped draped usual sterile fashion. 2% viscous lidocaine was inserted into the urethra. Twenty- two Mohawk scope was placed. Approximately 600 cc of clots was evacuated. Reinspection reveals an area near the dome of the bladder was there was clot adhered to it and the tissue was somewhat irregular and firm appearing. I placed a 24 Mohawk resectoscope sheath then to further irrigate this area. Using a 24 electrode loop I then resected a portion of this little irregularity area and sent for tissue diagnosis. Using a ball electrode we fulgurated the area. There was good hemostasis at termination of procedure. 2% viscous lidocaine was reinserted into the urethra and a [address] was placed with 20 cc in the balloon. This connected to continuous bladder irrigation. Patient is taken recovery stable condition. Will continue CBI over night and await path results. This completes dictation please send a copy to my office Drains Yes Packing No Pathology Yes Complications No immediate complications Condition Stable Disposition PACU
--- NOTE | 2023-04-01 16:10 | ADMGEN ---
This patient, Josh Lo, was admitted to [facility] Surg Room 317-01. Patient/family oriented to hospital policies and general routines including ID bracelet, bed and alarms, visiting hours, pain management, procedures, bathroom and other care routines, personal items, smoking policy, room service/diet, and visiting hours. Information on how to activate the Rapid Response Team has been discussed. Patient/Family are encouraged to report perceived risks to care and to ask questions if they do not understand what they are told or what they should do.
--- NOTE | 2023-04-01 16:26 | PM.IMHP ---
H&P: HPI History of Present Illness Date/Time: 04/01/23 16:26 Chief Complaint: Altered mental status Narrative: This is a 53-year-old male patient who comes from a halfway facility. He has a history of traumatic brain injury. The patient was reported as having an altered mental status. The patient was hypotensive this morning. His diaper was found to be full blood. The patient is on Eliquis. The patient is comfort measures and DNR as per his power trial attorney. His sister Koir is the power trial attorney. The patient has been less energetic over the last couple days. He has been somnolent. Abdominal pelvis CT was read as a follows Large amount of blood products distending the urinary bladder. Precise etiology for hemorrhage/hemorrhagic material within the bladder is unclear. Probable fecal impaction with stercoral proctitis and associated constipation. White count is 17.1. H&H is 6.5 in 21.4. Initially the patient's family refused the blood transfusion and now they are going to it. Urology was consulted the patient was taken his surgery. The patient had a cystoscopy with clot evacuation bladder biopsy and fulguration complex Palmer catheter placement. Approximately 600 cc of clot were evacuated. Patient CBI was continued. The patient continues to be pretty somnolent. The staff members spoke with family members to determine if the patient was going to go to hospice. They are going him allow him to be treated today and when he is discharged she will come back to the facility on hospice. The patient was started on IV fluids, Protonix, Zofran Townley, morphine, Ancef, and IV fluids. The patient is being admitted to observation status on 04/01 200 Review of Systems Review of Systems: All systems reviewed & are unremarkable except as noted in HPI and below Constitutional: Constitutional: Reports as per HPI and Reports no additional constitutional complaints Eyes: Eyes: Reports as per HPI and Reports no additional eye complaints ENT: Reports system reviewed and no additional complaints, except as documented and Reports Normal hearing present Cardiovascular: Cardiovascular: Reports no additional cardiovascular complaints Respiratory: Respiratory: Reports no additional respiratory complaints and Reports no additional respiratory complaints Gastrointestinal: Gastrointestinal: Reports as per HPI and Reports no additional gastrointestinal complaints Musculoskeletal: Musculoskeletal: Reports no additional musculoskeletal complaints Integumentary/Breasts: Skin/Breast: Reports system reviewed and no additional complaints, except as docu and Reports as per HPI Neurologic: Reports system reviewed and no additional complaints, except as documented, Reports as per HPI and Reports Normal hearing present Psychiatric: Psychiatric: Reports no additional psychiatric complaints and Reports as per HPI Endocrine: Endocrine: Reports no additional endocrine complaints Hematologic/Lymphatic: Hematologic/Lymphatic: Reports no additional hematologic/lymphatic complaints Allergic/Immunologic: Allergic/Immunologic: Reports no additional allergic/immunologic complaints PMFSH Past Medical History Medical History Altered mental status Chronic constipation Dyslipidemia Gastroesophageal reflux disease Neurogenic bladder Indwelling Palmer catheter. Obstructive sleep apnea Paranoid schizophrenia Pulmonary embolism Traumatic brain injury Surgical History Surgical History No history of major surgery within 1 month Family History Family History Father Heart problem Mother Heart problem Diabetes mellitus Sibling Diabetes mellitus Sibling Diabetes mellitus Sibling Diabetes mellitus Sibling Diabetes mellitus Social History Social History (Updated 04/01/23 @ 19:59 by Jyoti Baxter
[2023-04-01] MEDS: SODIUM CHLORIDE 0.9% IV 1,000 ML 999 ML (18:00)
[2023-04-01] MEDS: DEXTROSE 5%/LACTATED RINGERS 1,000 ML 125 ML IV CONT (19:14)
[2023-04-01] MEDS: SODIUM CHLORIDE 0.9% IV 250 ML 30 ML IV CONT (20:20)
[2023-04-01] MEDS: ceFAZolin 1 GM/NS 50 ML 1 GM/50 ML BAG IVPB (20:27)
[2023-04-02] VITALS (20 sets, daily range): BP systolic 94–118; BP diastolic 47–72; PULSE 85–103; RESP 16–44; TEMP 36–37.3; O2SAT 95–100
[2023-04-02] MEDS: SODIUM CHLORIDE 0.9% IV 1,000 ML 125 ML IV CONT ×2 (00:55→11:58)
[2023-04-02 02:49] LABS: Alanine Aminotransferase 19 U/L (6-50); Albumin Level 1.8 g/dL (3.5-5.1); Alkaline Phosphatase 56 U/L (38-126); Anion Gap 1 mmol/L (8-16); Aspartate Amino Transferase 44 U/L (17-59); Bilirubin,Total 0.3 mg/dL (0.2-1.3); Blood Urea Nitrogen 13 mg/dL (9-20); Calcium 7.5 mg/dL (8.4-10.2); Carbon Dioxide 25 mmol/L (22-30); Chloride 111 mmol/L (98-107); Estimated CRCL calculation 100 ml/min; Estimated Glomerular Filt Rate > 60; Glucose 88 mg/dL (65-110); Lactic Acid Reflex 0.8 mmol/L (0.7-2.0); Magnesium 1.8 mg/dL (1.6-2.3); Potassium 3.7 mmol/L (3.4-5.0); Sodium 137 mmol/L (137-145)
[2023-04-02 02:54] LABS: Hematocrit 16.2 % (42.0-52.0); Hemoglobin 5.1 g/dL (14.0-18.0)
[2023-04-02 05:55] LABS: Free T4 Free Thyroxine Reflex 1.59 ng/dL (0.78-2.19)
[2023-04-02 06:40] LABS: Total Triiodothyronine (T3) 0.66 NG/ML (0.97-1.69)
[2023-04-02 07:38] LABS: Glucose Point of Care 92 mg/dl (65-105)
[2023-04-02 08:15] LABS: Hemoglobin 7.3 g/dL (14.0-18.0)
--- NOTE | 2023-04-02 08:21 | WPDANESPN ---
Anes - Prog Note Post-Op Date/Time: 04/02/23 08:21 Cardiovascular status: normal Respiratory status: normal Airway patency: baseline Mental status: baseline Post-Op hydration status: normal Vital Signs: Last Vital Signs Temp 36.9 C 04/02/23 08:04 Pulse 98 04/02/23 08:04 Resp 16 04/02/23 08:04 BP 100/70 04/02/23 08:04 Pulse Ox 98 04/02/23 08:04 O2 Del Method Room Air 04/01/23 20:00 Pain Score (VAS): 09/28 I/O: Intake & Output 04/01/23 04/02/23 04/02/23 23:59 07:59 15:59 Intake Total 350 350 Output Total 4000 Balance -3650 350 Laboratory Tests 04/02/23 02:32 04/01/23 04/01/23 04/02/23 06:31 21:32 02:32 Hgb Cancelled 5.1 L* Hct Cancelled 16.2 L* Sodium 137 Potassium 3.7 Chloride 111 H Carbon Dioxide 25 Anion Gap 1 L BUN 13 Creatinine 0.70 Estim Creat Clear Calc 100 Estimated GFR > 60 Glucose 88 POC Capillary Glucose Lactic Acid 0.8 Calcium 7.5 L Magnesium 1.8 Total Bilirubin 0.3 AST 44 ALT 19 Alkaline Phosphatase 56 Total Protein 4.0 L Albumin 1.8 L TSH (Reflex) 8.490 H Free T4 1.59 Total T3 0.66 L Blood Type O Positive Antibody Screen Negative Crossmatch See Detail 04/02/23 04/02/23 07:35 07:57 Hgb Pending Hct Pending Sodium Potassium Chloride Carbon Dioxide Anion Gap BUN Creatinine Estim Creat Clear Calc Estimated GFR Glucose POC Capillary Glucose 92 Lactic Acid Calcium Magnesium Total Bilirubin AST ALT Alkaline Phosphatase Total Protein Albumin TSH (Reflex) Free T4 Total T3 Blood Type Antibody Screen Crossmatch Post-procedural complaints: none Patient Feedback: Patient satisfied with anesthetic care.
[2023-04-02] MEDS: ceFAZolin 1 GM/NS 50 ML 1 GM/50 ML BAG IVPB (09:01)
--- NOTE | 2023-04-02 11:37 | WPDUROPN2 ---
Progress Note: A&P Assessment and Plan (1) Hematuria: Qualifiers: Hematuria type: gross Qualified Code(s): R31.0 - Gross hematuria Code(s): R31.9 - Hematuria, unspecified Status: Acute Assessment and Plan: 53-year-old male with traumatic brain injury who was admitted for hematuria and clot burden status post cystoscopy clot evacuation fulguration of bladder yesterday 04/01/2023. Currently catheter is draining with completely clear yellow urine and on CBI at a slow drip. Most recent hemoglobin within normal limits. -continue to wean CBI at this time. Will plan to clamp the CBI completely tomorrow.. Continue indwelling catheter.. Subjective Subjective Date/Time Seen: 04/02/23 11:37 Interval history: Patient postop day 1 after cystoscopy and clot evacuation, fulguration of bladder. Patient resting at bedside. Palmer catheter is completely clear with drips of CBI. Exam Const: Other: Resting, asleep. : Other: Palmer catheter in place draining clear yellow urine. CBI at a very slow drip currently. Objective Data Vital Signs Vital Signs: Vital Signs - 24 hr 04/01/23 13:51 04/01/23 14:28 04/01/23 14:40 Temperature 37.4 C 37.5 C Pulse Rate 118 H 101 H 107 H Respiratory Rate 14 15 14 Blood Pressure 110/70 87/57 L 92/72 L Pulse Oximetry 100 100 100 Oxygen Delivery Room Air Room Air Room Air 04/01/23 14:55 04/01/23 15:10 04/01/23 15:25 Temperature Pulse Rate 106 H 108 H 105 H Respiratory Rate 17 19 18 Blood Pressure 104/73 103/71 90/59 L Pulse Oximetry 100 100 100 Oxygen Delivery Room Air Room Air Room Air 04/01/23 15:40 04/01/23 16:08 04/01/23 17:05 Temperature 36.9 C Pulse Rate 103 H 110 H 110 H Respiratory Rate 13 16 16 Blood Pressure 104/67 91/67 L Pulse Oximetry 100 98 98 Oxygen Delivery Room Air Room Air 04/01/23 17:27 04/01/23 17:42 04/01/23 18:10 Temperature 36.6 C 36.6 C Pulse Rate 106 H 97 110 H Respiratory Rate 20 16 Blood Pressure 78/54 L 80/50 L Pulse Oximetry 96 95 Oxygen Delivery 04/01/23 18:12 04/01/23 21:51 04/01/23 22:10 Temperature 36.8 C 36.9 C 36.8 C Pulse Rate 100 68 70 Respiratory Rate 16 16 16 Blood Pressure 113/66 88/58 L 75/52 L Pulse Oximetry 98 100 98 Oxygen Delivery 04/01/23 19:12 04/01/23 23:10 04/01/23 23:12 Temperature 37.1 C 37.7 C H 37.7 C H Pulse Rate 106 H 101 H 101 H Respiratory Rate 18 16 16 Blood Pressure 83/69 L 80/52 L 80/52 L Pulse Oximetry 99 100 100 Oxygen Delivery 04/01/23 23:31 04/01/23 23:25 04/01/23 23:25 Temperature 37.7 C H 37.7 C H 37.7 C H Pulse Rate 97 97 97 Respiratory Rate 18 16 16 Blood Pressure 92/53 L 92/53 L 92/53 L Pulse Oximetry 98 98 98 Oxygen Delivery 04/01/23 20:00 04/01/23 20:00 04/02/23 01:01 Temperature Pulse Rate 97 107 H Respiratory Rate 18 Blood Pressure 98/56 L Pulse Oximetry 98 Oxygen Delivery Room Air 04/02/23 03:29 04/02/23 03:45 04/02/23 04:01 Temperature 37.3 C 37.3 C 36.9 C Pulse Rate 97 97 94 Respiratory Rate 18 18 18 Blood Pressure 94/47 L 94/47 L 94/57 L Pulse Oximetry 99 99 98 Oxygen Delivery 04/02/23 00:00 04/02/23 04:00 04/02/23 05:01 Temperature 36.1 C L Pulse Rate 103 H 95 95 Respiratory Rate 18 Blood Pressure 105/65 Pulse Oximetry 100 Oxygen Delivery 04/02/23 06:01 04/02/23 06:48 04/02/23 06:30 Temperature 36.2 C L 36.8 C 36.8 C Pulse Rate 94 95 95 Respiratory Rate 16 16 16 Blood Pressure 103/68 99/63 L 99/63 L Pulse Oximetry 98 95 95 Oxygen Delivery 04/02/23 06:30 04/02/23 08:04 04/02/23 09:09 Temperature 36.8 C 36.9 C Pulse Rate 95 98 Respiratory Rate 16 16 Blood Pressure 99/63 L 100/70 110/66 Pulse Oximetry 95 98 Oxygen Delivery Intake/Output Intake/Output: Intake & Output 03/30/23 03/31/23 04/01/23 04/02/23 23:59 23:59 23:59 23:59 Intake Total 2650 350 Output Total 9300 Balance -6650 350 Meds/Results Medication
[2023-04-02 11:40] LABS: Glucose Point of Care 84 mg/dl (65-105)
[2023-04-02 15:04] LABS: Hematocrit 22.3 % (42.0-52.0); Hemoglobin 7.2 g/dL (14.0-18.0)
[2023-04-02 18:06] LABS: Glucose Point of Care 82 mg/dl (65-105)
[2023-04-02 23:59] LABS: Glucose Point of Care 73 mg/dl (65-105)
[2023-04-03] VITALS (13 sets, daily range): BP systolic 97–124; BP diastolic 61–112; PULSE 67–111; RESP 14–20; TEMP 36.6–36.9; O2SAT 91–100
[2023-04-03] MEDS: SODIUM CHLORIDE 0.9% IV 1,000 ML 125 ML IV CONT ×3 (04:55→20:33)
[2023-04-03 08:00] LABS: Alanine Aminotransferase 20 U/L (6-50); Albumin Level 2.1 g/dL (3.5-5.1); Alkaline Phosphatase 66 U/L (38-126); Anion Gap 4 mmol/L (8-16); Aspartate Amino Transferase 42 U/L (17-59); Bilirubin,Total 0.5 mg/dL (0.2-1.3); Blood Urea Nitrogen 4 mg/dL (9-20); Calcium 7.6 mg/dL (8.4-10.2); Carbon Dioxide 24 mmol/L (22-30); Chloride 108 mmol/L (98-107); Estimated CRCL calculation 165 ml/min; Estimated Glomerular Filt Rate > 60; Glucose 86 mg/dL (65-110); Magnesium 1.8 mg/dL (1.6-2.3); Potassium 3.2 mmol/L (3.4-5.0); Sodium 136 mmol/L (137-145)
[2023-04-03 08:13] LABS: Basophils Percent Auto 0.3 % (0.2-1.2); Hematocrit 22.1 % (42.0-52.0); Hemoglobin 7.2 g/dL (14.0-18.0); Immature Granulocyte Absolute 0.11 K/mm3 (0.00-0.031); Immature Granulocyte Percent A 1.4 % (0-0.5); Lymphocytes Absolute Auto 1.49 K/mm3 (0.9-3.2); Lymphocytes Percent Auto 19.3 % (18.3-44.2); Mean Corpuscular HGB Conc 32.6 g/dl (32-36); Mean Corpuscular Hemoglobin 30.1 pg (26-34); Mean Corpuscular Volume 92.5 fl (80-100); Mean Platelet Volume 8.9 fl (7.4-10.4); Monocytes Absolute Auto 1.1 K/mm3 (0.1-0.6); Platelet Count Result 243 k/mm3 (150-375); Red Blood Count 2.39 M/mm3 (4.6-6.20); Red Cell Distribution Width 17.3 % (11.5-14.5); White Blood Count 7.7 K/mm3 (4.5-10.0)
--- NOTE | 2023-04-03 09:29 | PM.IMPN ---
Progress Note: A&P Assessment and Plan (1) Hematuria: Qualifiers: Hematuria type: gross Qualified Code(s): R31.0 - Gross hematuria Code(s): R31.9 - Hematuria, unspecified Status: Acute Assessment and Plan: Urology has been consulted. The patient was taken his surgery.The patient had a cystoscopy with clot evacuation bladder biopsy and fulguration complex Palmer catheter placement. Approximately 600 cc of clot were evacuated. CBI was continued. The patient continues to be pretty somnolent. The staff members spoke with family members to determine if the patient was going to go to hospice. They are going him allow him to be treated today and when he is discharged she will come back to the facility on hospice. The patient was started on IV fluids, Protonix, Zofran [place], morphine. (2) Obstructive sleep apnea: Code(s): G47.33 - Obstructive sleep apnea (adult) (pediatric) Status: Acute Assessment and Plan: continue with home settings for cpap (3) Anemia: Code(s): D64.9 - Anemia, unspecified Status: Acute Assessment and Plan: the patient is scheduled to have a blood transfusion at this time. Will continue with H&H every 6 hours. Continue with CBI. Eliquis is on hold at this time. (4) Acute urinary retention: Code(s): R33.8 - Other retention of urine Status: Acute Assessment and Plan: The patient has a CBI at this time. (5) BPH (benign prostatic hyperplasia): Code(s): N40.0 - Benign prostatic hyperplasia without lower urinary tract symptoms Status: Acute Assessment and Plan: He has a CBI infusing at this time. Continue with tamsulosin. He is also on gemtesa which is non formulary. (6) Traumatic brain injury: Code(s): S06.9XAA - Unspecified intracranial injury with loss of consciousness status unknown, initial encounter Status: Acute Assessment and Plan: This is chronic and the family stated that he has emotional lability. They also stated that he has paranoid schizophrenia. Continue with his home medications. Continue with home medications. Continue with Depakote. Continue with Prozac. Continue with risperidone . Continue with buspirone. Plan 04/02/2023:53-year-old with history of traumatic brain injury nursing presented altered mental status and hypotension. Patient had a diaper full with blood. Patient on anticoagulation with Eliquis. Patient is DNR and comfort care only. Patient had a A[place] catheter placed and attempts were made to irrigate however was unsuccessful due to large amount of blood clots. CT scan showed large volume of blood in his bladder. He noted to be anemic severely with hemoglobin of 6.5 on admission. Initially she declined blood transfusion due to comfort care only status. Patient underwent cystoscopy and evacuation of the clots with urology 04/01/2023. His hemoglobin went down further to 5 eventually family was agreeable for transfusion and underwent 2 unit of packed red blood cell transfusion overnight on 04/01/2023. His hemoglobin has been stable since then. He has been placed on CBI via 3 way catheter post cystoscopy clot evacuation and fulguration of bladder. Hypotension has improved. Leukocytosis 17,000 on admission repeat in a.m. on cefazolin patient on anticoagulation due to DVT bilateral lower extremities along with PE which has been on hold. 04/03/2023: 53-year-old with history of traumatic brain injury nursing presented altered mental status and hypotension. Patient had a diaper full with blood. Patient on anticoagulation with Eliquis. Patient is DNR and comfort care only. Patient had chrnoic Palmer catheter for his neurogenic bladder and attempts were made to irrigate however was unsuccessful due to large amount of blood clots. CT scan showed large volume of blood in his bladder. He noted to be anemic severely with hemoglobin of 6.5 on admission. Initially family decl
[2023-04-03] MEDS: polyethylene glycoL 3350 17 GM POWD.PACK PO (10:00)
[2023-04-03] MEDS: POTASSIUM CHLORIDE 20 MEQ ER TABLET 40 MEQ PO (10:01)
[2023-04-03] MEDS: FLUoxetine HCL 20 MG CAPSULE 40 MG PO ×2 (10:01→16:05)
[2023-04-03] MEDS: MIDODRINE HCL 10 MG TABLET PO ×3 (10:02→16:06)
[2023-04-03] MEDS: risperiDONE 1 MG TABLET 2 MG PO ×3 (10:03→16:06)
[2023-04-03] MEDS: CHOLECALCIFEROL 1,000 UNITS TABLET 2000 UNITS PO (10:03)
[2023-04-03] MEDS: busPIRone HCL 5 MG TABLET 15 MG PO ×3 (10:03→16:17)
[2023-04-03] MEDS: BENZTROPINE MESYLATE 1 MG TABLET PO ×2 (10:04→20:13)
[2023-04-03] MEDS: FENOFIBRATE 160 MG TABLET PO (10:04)
[2023-04-03] MEDS: SENNA/DOCUSATE SODIUM TABLET 1 TAB PO ×2 (10:04→16:07)
[2023-04-03] MEDS: ATORVASTATIN 10 MG TABLET PO (10:05)
[2023-04-03] MEDS: POTASSIUM CHLORIDE 20 MEQ ER TABLET PO (10:05)
--- NOTE | 2023-04-03 10:06 | WPDUROPN2 ---
Progress Note: A&P Assessment and Plan (1) Hematuria: Qualifiers: Hematuria type: gross Qualified Code(s): R31.0 - Gross hematuria Code(s): R31.9 - Hematuria, unspecified Status: Acute Assessment and Plan: 53-year-old male with traumatic brain injury who was admitted for hematuria and clot burden status post cystoscopy clot evacuation fulguration of bladder yesterday 04/01/2023.? Currently catheter is draining with completely clear yellow urine and on CBI at a slow drip.? Most recent hemoglobin within normal limits. -continue Palmer catheter placement. Urine is completely clear and yellow currently. CBI has been clamped. Subjective Subjective Date/Time Seen: 04/03/23 10:06 Interval history: No acute interventions overnight. Catheter continues to drain well. CBI on a trickle. Exam : Other: Palmer catheter in place, draining well with CBI on a trickle. Objective Data Vital Signs Vital Signs: Vital Signs - 24 hr 04/02/23 11:12 04/02/23 12:00 04/02/23 16:00 Temperature 36.6 C Pulse Rate 92 90 90 Respiratory Rate 16 Blood Pressure 102/72 Pulse Oximetry 100 Oxygen Delivery 04/02/23 15:12 04/02/23 20:09 04/02/23 19:12 Temperature 36.6 C 36.0 C L Pulse Rate 89 90 Respiratory Rate 16 44 H 18 Blood Pressure 108/72 118/65 Pulse Oximetry 99 99 Oxygen Delivery CPAP 04/02/23 20:00 04/02/23 20:00 04/03/23 00:04 Temperature 36.8 C Pulse Rate 85 67 Respiratory Rate 18 Blood Pressure 124/112 H Pulse Oximetry 91 Oxygen Delivery CPAP 04/03/23 00:00 04/03/23 03:57 04/03/23 04:00 Temperature 36.8 C Pulse Rate 90 111 H 108 H Respiratory Rate 20 Blood Pressure 107/73 Pulse Oximetry 98 Oxygen Delivery Intake/Output Intake/Output: Intake & Output 03/31/23 04/01/23 04/02/23 04/03/23 23:59 23:59 23:59 23:59 Intake Total 2650 2350 Output Total 9300 8498 1488 Balance -0567 518 -7982 Meds/Results Medications: Active Medications Generic Name Dose Route Start Last Admin Trade Name Freq PRN Reason Stop Dose Admin Hydrocodone Bitart/Acetaminophen 1 tab 04/01/23 17:27 Hydrocodone/Acetaminophen (*Crx) 5-325 Mg Tablet PO Q4H PRN Pain Rated 1-6 Atorvastatin Calcium 10 mg 04/02/23 09:00 04/03/23 10:05 Atorvastatin 10 Mg Tablet PO 10 mg DAILY INDIRA Administration Benztropine Mesylate 1 mg 04/01/23 21:00 04/03/23 10:04 Benztropine Mesylate 1 Mg Tablet PO 1 mg Q12HR INDIRA Administration Buspirone HCl 15 mg 04/01/23 20:20 04/03/23 10:03 Buspirone Hcl 5 Mg Tablet PO 15 mg TID INDIRA Administration Divalproex Sodium 500 mg 04/01/23 20:30 04/03/23 10:[address] 250 Mg Tabec PO 500 mg BID INDIRA Administration Divalproex Sodium 250 mg 04/01/23 20:30 04/02/23 16:54 Divalproex Sodium Er 250 Mg Tab.24h PO Not Given BID INDIRA Docusate Sodium 100 mg 04/01/23 17:27 04/02/23 16:54 Docusate Sodium 100 Mg Capsule PO Not Given BID INDIRA Fenofibrate 160 mg 04/02/23 09:00 04/03/23 10:04 Fenofibrate 160 Mg Tablet PO 160 mg DAILY INDIRA Administration Fluoxetine HCl 40 mg 04/01/23 20:25 04/03/23 10:01 Fluoxetine Hcl 20 Mg Capsule PO 40 mg 0900,1600 INDIRA Administration Hyoscyamine 0.125 mg 04/01/23 17:27 Hyoscyamine Sulfate 0.125 Mg Tablet SUBLINGUAL Q6H PRN Bladder Spasm Dextrose/Lactated Ringer's 1,000 mls @ 125 mls/hr 04/01/23 17:27 04/02/23 18:50 Dextrose 5%/Lactated Ringers IV CONT Not Given .Q8H INDIRA Sodium Chloride 1,000 mls @ 125 mls/hr 04/02/23 00:30 04/03/23 04:55 Normal Saline Iv IV CONT 125 mls/hr .Q8H INDIRA Administration Midodrine 10 mg 04/02/23 09:00 04/03/23 10:02 Midodrine Hcl 10 Mg Tablet PO 10 mg TID INDIRA Administration Miscellaneous Information 1 each 04/02/23 00:01 04/02/23 06:58 Med Rec Order Clarification XX 05/02/23 00:00 Not Given CLARIFY INDIRA Mor
[2023-04-03 12:06] LABS: Glucose Point of Care 112 mg/dl (65-105)
--- NOTE | 2023-04-03 13:52 | PC.NURSE ---
Pt had been previous non-responsive and unable to take in PO medications. This RN to bedside this AM to give medications. Pt unable to swallow depakote DR/ER. Able to crush all other meds, and dissolved potassium in apple juice. Pt tolerates thin liquids fine. Called MD to make aware. Orders received to cancel bedside swallow eval as pt at baseline, switched to depakote sprinkle, and switched to ACHS.
[2023-04-03] MEDS: DIVALPROEX SODIUM SPRINKLE 125 MG CAP.DR 500 MG PO ×2 (15:57→21:46)
[2023-04-03] MEDS: BISACODYL 10 MG SUPPOSITORY RECTAL (18:09)
[2023-04-03 21:17] LABS: Glucose Point of Care 121 mg/dl (65-105)
[2023-04-04] VITALS (7 sets, daily range): BP systolic 109–121; BP diastolic 72–88; PULSE 92–104; RESP 14–16; TEMP 36.4–36.6; O2SAT 96–99; BMI 22.1
[2023-04-04] MEDS: SODIUM CHLORIDE 0.9% IV 1,000 ML 125 ML IV CONT ×2 (04:39→12:39)
[2023-04-04] MEDS: DIVALPROEX SODIUM SPRINKLE 125 MG CAP.DR 500 MG PO ×3 (05:04→21:30)
[2023-04-04 06:43] LABS: Basophils Percent Auto 0.2 % (0.2-1.2); Eosinophils Percent Auto 0.3 % (0-4.4); Hemoglobin 7.7 g/dL (14.0-18.0); Immature Granulocyte Absolute 0.09 K/mm3 (0.00-0.031); Lymphocytes Percent Auto 25.5 % (18.3-44.2); Mean Corpuscular HGB Conc 32.1 g/dl (32-36); Mean Corpuscular Hemoglobin 30.3 pg (26-34); Mean Corpuscular Volume 94.5 fl (80-100); Mean Platelet Volume 8.9 fl (7.4-10.4); Monocytes Absolute Auto 0.9 K/mm3 (0.1-0.6); Monocytes Percent Auto 10.3 % (2.6-8.5); Neutrophils Absolute Auto 5.4 K/mm3 (1.3-6.7); Neutrophils Percent Auto 62.7 % (45.5-73.1); Platelet Count Result 288 k/mm3 (150-375); Red Blood Count 2.54 M/mm3 (4.6-6.20); Red Cell Distribution Width 16.9 % (11.5-14.5); White Blood Count 8.6 K/mm3 (4.5-10.0)
[2023-04-04 06:51] LABS: Alanine Aminotransferase 20 U/L (6-50); Albumin Level 2.2 g/dL (3.5-5.1); Alkaline Phosphatase 77 U/L (38-126); Anion Gap 4 mmol/L (8-16); Aspartate Amino Transferase 37 U/L (17-59); Bilirubin,Total 0.5 mg/dL (0.2-1.3); Calcium 7.9 mg/dL (8.4-10.2); Carbon Dioxide 29 mmol/L (22-30); Chloride 106 mmol/L (98-107); Estimated CRCL calculation 135 ml/min; Estimated Glomerular Filt Rate > 60; Glucose 95 mg/dL (65-110); Magnesium 1.8 mg/dL (1.6-2.3); Sodium 139 mmol/L (137-145)
[2023-04-04 06:53] LABS: Blood Urea Nitrogen < 2 mg/dL (9-20)
[2023-04-04] MEDS: ATORVASTATIN 10 MG TABLET PO (07:52)
[2023-04-04] MEDS: risperiDONE 1 MG TABLET 2 MG PO ×3 (07:52→17:48)
[2023-04-04] MEDS: busPIRone HCL 5 MG TABLET 15 MG PO ×3 (07:52→17:48)
[2023-04-04] MEDS: MIDODRINE HCL 10 MG TABLET PO ×3 (07:52→17:49)
[2023-04-04] MEDS: FLUoxetine HCL 20 MG CAPSULE 40 MG PO ×2 (07:53→17:40)
[2023-04-04] MEDS: SENNA/DOCUSATE SODIUM TABLET 1 TAB PO ×2 (07:53→17:50)
[2023-04-04] MEDS: POTASSIUM CHLORIDE 20 MEQ ER TABLET PO (07:53)
[2023-04-04] MEDS: CHOLECALCIFEROL 1,000 UNITS TABLET 2000 UNITS PO (07:53)
[2023-04-04] MEDS: BENZTROPINE MESYLATE 1 MG TABLET PO ×2 (07:53→20:18)
[2023-04-04] MEDS: FENOFIBRATE 160 MG TABLET PO (07:54)
[2023-04-04 07:57] LABS: Glucose Point of Care 92 mg/dl (65-105)
--- NOTE | 2023-04-04 10:24 | PCSTNOTE ---
Bedside Swallow Evaluation was ordered however nurse reported the order was going to be cancelled due to functioning at baseline. Aziza Royal, CONTROL OPERATOR, has informally talked to the patient and observed him eating and drinking and found no cause for concern about risk for aspiration. Order for evaluation was cancelled with patient determined to be functioning at baseline.
[2023-04-04 11:39] LABS: Glucose Point of Care 110 mg/dl (65-105)
--- NOTE | 2023-04-04 14:39 | PM.IMPN ---
Progress Note: A&P Assessment and Plan (1) Hematuria: Qualifiers: Hematuria type: gross Qualified Code(s): R31.0 - Gross hematuria Code(s): R31.9 - Hematuria, unspecified Status: Acute (2) Obstructive sleep apnea: Code(s): G47.33 - Obstructive sleep apnea (adult) (pediatric) Status: Acute (3) Anemia: Code(s): D64.9 - Anemia, unspecified Status: Acute (4) Acute urinary retention: Code(s): R33.8 - Other retention of urine Status: Acute (5) BPH (benign prostatic hyperplasia): Code(s): N40.0 - Benign prostatic hyperplasia without lower urinary tract symptoms Status: Acute (6) Traumatic brain injury: Code(s): S06.9XAA - Unspecified intracranial injury with loss of consciousness status unknown, initial encounter Status: Acute Plan 04/02/2023:53-year-old with history of traumatic brain injury nursing presented altered mental status and hypotension. Patient had a diaper full with blood. Patient on anticoagulation with Eliquis. Patient is DNR and comfort care only. Patient had a Palmer catheter placed and attempts were made to irrigate however was unsuccessful due to large amount of blood clots. CT scan showed large volume of blood in his bladder. He noted to be anemic severely with hemoglobin of 6.5 on admission. Initially she declined blood transfusion due to comfort care only status. Patient underwent cystoscopy and evacuation of the clots with urology 04/01/2023. His hemoglobin went down further to 5 eventually family was agreeable for transfusion and underwent 2 unit of packed red blood cell transfusion overnight on 04/01/2023. His hemoglobin has been stable since then. He has been placed on CBI via 3 way catheter post cystoscopy clot evacuation and fulguration of bladder. Hypotension has improved. Leukocytosis 17,000 on admission repeat in a.m. on cefazolin patient on anticoagulation due to DVT bilateral lower extremities along with PE which has been on hold. 04/03/2023: 53-year-old with history of traumatic brain injury nursing presented altered mental status and hypotension. Patient had a diaper full with blood. Patient on anticoagulation with Eliquis. Patient is DNR and comfort care only. Patient had chrnoic Palmer catheter for his neurogenic bladder and attempts were made to irrigate however was unsuccessful due to large amount of blood clots. CT scan showed large volume of blood in his bladder. He noted to be anemic severely with hemoglobin of 6.5 on admission. Initially family declined blood transfusion due to comfort care only status. Patient underwent cystoscopy and evacuation of the clots with urology 04/01/2023. His hemoglobin went down further to 5 eventually family was agreeable for transfusion and underwent 2 unit of packed red blood cell transfusion overnight on 04/01/2023. His hemoglobin has been stable since then. He has been placed on CBI via 3 way catheter post cystoscopy clot evacuation and fulguration of bladder. Hypotension has improved. Leukocytosis 17,000 on admission which has resolved. patient on cefazolin patient on anticoagulation due to DVT bilateral lower extremities along with PE which has been on hold. discused about restart when safe from urologic standpoint. oral diet will be started once cleared from swallow evaluation. speech to see. replace K. fecal impaction possibe per CT. will give stool softener to start and enema prn. 04/04/2023: 53-year-old with history of traumatic brain injury nursing presented altered mental status and hypotension. Patient had a diaper full with blood. Patient on anticoagulation with Eliquis. Patient is DNR and comfort care only. Patient had chrnoic Palmer catheter for his neurogenic bladder and attempts were made to irrigate however was unsuccessful due to large amount of blood clots. CT scan showed large volume of blood in his bladder. He noted to be anemic severely with hemoglobin of 6.5
[2023-04-04 16:29] LABS: Glucose Point of Care 100 mg/dl (65-105)
[2023-04-04 21:08] LABS: Glucose Point of Care 123 mg/dl (65-105)
[2023-04-05] VITALS (8 sets, daily range): BP systolic 91–143; BP diastolic 42–91; PULSE 95–119; RESP 14–18; TEMP 36.5–37.2; O2SAT 91–100
[2023-04-05] MEDS: DIVALPROEX SODIUM SPRINKLE 125 MG CAP.DR 500 MG PO ×3 (05:22→21:03)
[2023-04-05 06:38] LABS: Basophils Percent Auto 0.2 % (0.2-1.2); Eosinophils Percent Auto 0.2 % (0-4.4); Hematocrit 22.1 % (42.0-52.0); Immature Granulocyte Percent A 0.8 % (0-0.5); Lymphocytes Absolute Auto 2.05 K/mm3 (0.9-3.2); Lymphocytes Percent Auto 15.9 % (18.3-44.2); Mean Corpuscular HGB Conc 31.2 g/dl (32-36); Mean Corpuscular Volume 96.1 fl (80-100); Mean Platelet Volume 8.9 fl (7.4-10.4); Monocytes Absolute Auto 1.2 K/mm3 (0.1-0.6); Neutrophils Absolute Auto 9.6 K/mm3 (1.3-6.7); Neutrophils Percent Auto 73.9 % (45.5-73.1); Platelet Count Result 311 k/mm3 (150-375); Red Cell Distribution Width 17.9 % (11.5-14.5); White Blood Count 12.9 K/mm3 (4.5-10.0)
[2023-04-05 06:44] LABS: Hemoglobin 6.9 g/dL (14.0-18.0)
[2023-04-05 06:48] LABS: Alanine Aminotransferase 18 U/L (6-50); Albumin Level 2.1 g/dL (3.5-5.1); Alkaline Phosphatase 71 U/L (38-126); Anion Gap 2 mmol/L (8-16); Aspartate Amino Transferase 39 U/L (17-59); Bilirubin,Total 0.3 mg/dL (0.2-1.3); Blood Urea Nitrogen 2 mg/dL (9-20); Carbon Dioxide 28 mmol/L (22-30); Chloride 108 mmol/L (98-107); Estimated CRCL calculation 135 ml/min; Estimated Glomerular Filt Rate > 60; Glucose 89 mg/dL (65-110); Magnesium 1.9 mg/dL (1.6-2.3); Potassium 3.7 mmol/L (3.4-5.0); Sodium 138 mmol/L (137-145)
--- NOTE | 2023-04-05 06:49 | PC.NURSE ---
critical hemoglobin 6.9 reported to Md Dior, 1 unit ordered prbc
--- NOTE | 2023-04-05 06:49 | PM.EVENT ---
Event Note Event Note Event Note: Patient CBC shows a WBC of 12.9, hemoglobin 6.9, hematocrit 22.1 and a platelet count of 311. On chart review patient had recurrent hematuria with hemoglobin drop requiring blood transfusion most recently April 01. Plan: transfuse 1 unit PRBC.
[2023-04-05 07:48] LABS: Glucose Point of Care 97 mg/dl (65-105)
[2023-04-05] MEDS: SODIUM CHLORIDE 0.9% IV 250 ML 30 ML IV CONT (08:38)
[2023-04-05] MEDS: BENZTROPINE MESYLATE 1 MG TABLET PO ×2 (08:39→20:53)
[2023-04-05] MEDS: CHOLECALCIFEROL 1,000 UNITS TABLET 2000 UNITS PO (08:39)
[2023-04-05] MEDS: FENOFIBRATE 160 MG TABLET PO (08:39)
[2023-04-05] MEDS: busPIRone HCL 5 MG TABLET 15 MG PO ×3 (08:39→16:19)
[2023-04-05] MEDS: ATORVASTATIN 10 MG TABLET PO (08:39)
[2023-04-05] MEDS: FLUoxetine HCL 20 MG CAPSULE 40 MG PO ×2 (08:39→16:19)
[2023-04-05] MEDS: MIDODRINE HCL 10 MG TABLET PO ×3 (08:40→16:19)
[2023-04-05] MEDS: POTASSIUM CHLORIDE 20 MEQ ER TABLET PO (08:40)
[2023-04-05] MEDS: risperiDONE 1 MG TABLET 2 MG PO ×3 (08:40→16:19)
[2023-04-05] MEDS: SILVERGEL (ELTA) 45 ML 1 APPLIC TOPICAL (09:49)
[2023-04-05 11:30] LABS: Glucose Point of Care 95 mg/dl (65-105)
[2023-04-05 14:33] LABS: Hematocrit 26.2 % (42.0-52.0); Hemoglobin 8.4 g/dL (14.0-18.0)
[2023-04-05 16:25] LABS: Glucose Point of Care 126 mg/dl (65-105)
--- NOTE | 2023-04-05 22:10 | PC.NURSE ---
pt BP 98/61. pt alert. provider Jyoti notified. Orders placed for repeat H+H as pt received PRBCs this morning
[2023-04-05 22:48] LABS: Glucose Point of Care 98 mg/dl (65-105)
[2023-04-05 22:55] LABS: Hematocrit 25.2 % (42.0-52.0); Hemoglobin 7.9 g/dL (14.0-18.0)
[2023-04-06] MEDS: DIVALPROEX SODIUM SPRINKLE 125 MG CAP.DR 500 MG PO ×3 (05:11→21:07)
[2023-04-06 07:01] LABS: Basophils Percent Auto 0.3 % (0.2-1.2); Eosinophils Percent Auto 0.5 % (0-4.4); Hematocrit 26.2 % (42.0-52.0); Hemoglobin 8.4 g/dL (14.0-18.0); Immature Granulocyte Absolute 0.07 K/mm3 (0.00-0.031); Immature Granulocyte Percent A 0.9 % (0-0.5); Lymphocytes Absolute Auto 2.13 K/mm3 (0.9-3.2); Lymphocytes Percent Auto 28.6 % (18.3-44.2); Mean Corpuscular HGB Conc 32.1 g/dl (32-36); Mean Corpuscular Hemoglobin 30.2 pg (26-34); Mean Corpuscular Volume 94.2 fl (80-100); Monocytes Absolute Auto 0.8 K/mm3 (0.1-0.6); Monocytes Percent Auto 10.9 % (2.6-8.5); Neutrophils Absolute Auto 4.4 K/mm3 (1.3-6.7); Neutrophils Percent Auto 58.8 % (45.5-73.1); Platelet Count Result 296 k/mm3 (150-375); Red Blood Count 2.78 M/mm3 (4.6-6.20); Red Cell Distribution Width 17.1 % (11.5-14.5); White Blood Count 7.5 K/mm3 (4.5-10.0)
[2023-04-06 07:10] LABS: Alanine Aminotransferase 15 U/L (6-50); Albumin Level 2.1 g/dL (3.5-5.1); Alkaline Phosphatase 67 U/L (38-126); Anion Gap 0 mmol/L (8-16); Aspartate Amino Transferase 25 U/L (17-59); Bilirubin,Total 0.4 mg/dL (0.2-1.3); Blood Urea Nitrogen 2 mg/dL (9-20); Calcium 8.1 mg/dL (8.4-10.2); Carbon Dioxide 32 mmol/L (22-30); Chloride 104 mmol/L (98-107); Estimated CRCL calculation 135 ml/min; Estimated Glomerular Filt Rate > 60; Glucose 82 mg/dL (65-110); Magnesium 1.9 mg/dL (1.6-2.3); Potassium 3.9 mmol/L (3.4-5.0); Sodium 136 mmol/L (137-145)
[2023-04-06 07:22] VITALS: BP 126/67; PULSE 98; RESP 12; TEMP 36.9; O2SAT 98
[2023-04-06 07:46] LABS: Glucose Point of Care 75 mg/dl (65-105)
[2023-04-06 08:00] VITALS: O2SAT 98
[2023-04-06] MEDS: BENZTROPINE MESYLATE 1 MG TABLET PO ×2 (08:31→20:24)
[2023-04-06] MEDS: busPIRone HCL 5 MG TABLET 15 MG PO ×3 (08:31→16:55)
[2023-04-06] MEDS: CHOLECALCIFEROL 1,000 UNITS TABLET 2000 UNITS PO (08:31)
[2023-04-06] MEDS: ATORVASTATIN 10 MG TABLET PO (08:31)
[2023-04-06] MEDS: risperiDONE 1 MG TABLET 2 MG PO ×3 (08:32→16:56)
[2023-04-06] MEDS: FENOFIBRATE 160 MG TABLET PO (08:32)
[2023-04-06] MEDS: FLUoxetine HCL 20 MG CAPSULE 40 MG PO ×2 (08:32→16:55)
[2023-04-06] MEDS: MIDODRINE HCL 10 MG TABLET PO ×3 (08:32→16:56)
[2023-04-06] MEDS: POTASSIUM CHLORIDE 20 MEQ ER TABLET PO (08:32)
[2023-04-06 12:13] LABS: Glucose Point of Care 105 mg/dl (65-105)
[2023-04-06 14:00] VITALS: BP 109/75; PULSE 98; RESP 20; TEMP 36.8; O2SAT 98
[2023-04-06] MEDS: SILVERGEL (ELTA) 45 ML 1 APPLIC TOPICAL (14:20)
[2023-04-06 16:45] LABS: Glucose Point of Care 113 mg/dl (65-105)
[2023-04-06] MEDS: DOCUSATE SODIUM 100 MG CAPSULE PO (16:56)
[2023-04-06] MEDS: SENNA/DOCUSATE SODIUM TABLET 1 TAB PO (16:56)
[2023-04-06 21:26] LABS: Glucose Point of Care 114 mg/dl (65-105)
[2023-04-06 22:10] VITALS: BP 121/76; PULSE 90; RESP 14; TEMP 36.9; O2SAT 100
[2023-04-07] MEDS: DIVALPROEX SODIUM SPRINKLE 125 MG CAP.DR 500 MG PO (05:15)
[2023-04-07 06:14] VITALS: BP 128/73; PULSE 97; RESP 14; TEMP 37.4; O2SAT 98
[2023-04-07 06:36] LABS: Basophils Percent Auto 0.2 % (0.2-1.2); Eosinophils Percent Auto 0.4 % (0-4.4); Hemoglobin 8.9 g/dL (14.0-18.0); Immature Granulocyte Percent A 1.2 % (0-0.5); Lymphocytes Absolute Auto 2.51 K/mm3 (0.9-3.2); Lymphocytes Percent Auto 29.7 % (18.3-44.2); Mean Corpuscular HGB Conc 31.8 g/dl (32-36); Mean Corpuscular Volume 94.3 fl (80-100); Mean Platelet Volume 8.9 fl (7.4-10.4); Monocytes Absolute Auto 0.9 K/mm3 (0.1-0.6); Monocytes Percent Auto 10.2 % (2.6-8.5); Neutrophils Absolute Auto 4.9 K/mm3 (1.3-6.7); Neutrophils Percent Auto 58.3 % (45.5-73.1); Platelet Count Result 346 k/mm3 (150-375); Red Blood Count 2.97 M/mm3 (4.6-6.20); White Blood Count 8.5 K/mm3 (4.5-10.0)
[2023-04-07 06:49] LABS: Alanine Aminotransferase 15 U/L (6-50); Albumin Level 2.3 g/dL (3.5-5.1); Alkaline Phosphatase 70 U/L (38-126); Anion Gap 2 mmol/L (8-16); Aspartate Amino Transferase 24 U/L (17-59); Bilirubin,Total 0.4 mg/dL (0.2-1.3); Blood Urea Nitrogen 4 mg/dL (9-20); Calcium 8.2 mg/dL (8.4-10.2); Carbon Dioxide 29 mmol/L (22-30); Chloride 104 mmol/L (98-107); Estimated CRCL calculation 135 ml/min; Estimated Glomerular Filt Rate > 60; Glucose 86 mg/dL (65-110); Sodium 135 mmol/L (137-145)
[2023-04-07 08:11] LABS: Glucose Point of Care 84 mg/dl (65-105)
[2023-04-07 11:53] LABS: SARS-CoV-2 RNA PCR Negative (Negative)
--- NOTE | 2023-04-07 11:54 | PC.NURSE ---
Patient not able to take medications at this time. Patient is very tired/sleepy. Patient had a tough time getting a breakfast bite down. Updated hospitalist Sri. Holding oral medications this AM. Consult for hospice is in.
[2023-04-07 12:12] LABS: Glucose Point of Care 93 mg/dl (65-105)
--- NOTE | 2023-04-07 12:13 | PM.DS ---
DS: Admitting Diagnosis Discharge Date 04/07/23 Admitting Diagnosis Anemia, hematuria DS: Discharge Diagnosis Discharge Diagnosis (1) Hematuria: Qualifiers: Hematuria type: gross Qualified Code(s): R31.0 - Gross hematuria Code(s): R31.9 - Hematuria, unspecified Status: Acute (2) Obstructive sleep apnea: Code(s): G47.33 - Obstructive sleep apnea (adult) (pediatric) Status: Acute (3) Anemia: Code(s): D64.9 - Anemia, unspecified Status: Acute (4) Acute urinary retention: Code(s): R33.8 - Other retention of urine Status: Acute (5) BPH (benign prostatic hyperplasia): Code(s): N40.0 - Benign prostatic hyperplasia without lower urinary tract symptoms Status: Acute (6) Traumatic brain injury: Code(s): S06.9XAA - Unspecified intracranial injury with loss of consciousness status unknown, initial encounter Status: Acute DS: Summary Hospital Course Hospital Course: This is a 53-year-old male patient with a past medical history of TBI SUZY, BPH, history of DVT, schizophrenia, that lives at a [facility]dc present to the hospital after being found hypotensive and having altered mental status. Per nursing staff they had also noticed his depend had blood in it. Patient's power of meat clerk stated that his mood had changed over the past couple days. He had previously been comfort measures and DNR. CT abdomen pelvis bili large amount of blood products descending in the urinary bladder, fecal impaction and stercoral proctitis associated with constipation. He was also found to have a white count of 17.1 and H&H of 6.5/21.4. He was transfused with 2 units of blood. Urology consulted. Patient underwent cystoscopy and clot evacuation and bladder biopsy as well as Palmer catheter placement. 600 cc of clot was evacuated and patient underwent CBI. He was started on IV fluids, Protonix, Zofran, analgesics and Ancef. Patient underwent speech evaluation and they cleared him to start oral diet. Patient has serial H&Hs. He was found to have a hemoglobin of 6.9 / 22.1 on 04/05/2023 and was transfused with 1 unit of PRBCs. According the family they would rather have patient's fdc set up hospice for him. The and plan is for him to return to the [facility] on hospice. The family has a meeting set up for him. Patient's H&H has remained stable after last transfusion. He will be discharged with a Palmer catheter since he will be going into hospice care. From there Palmer catheter can be replaced monthly. His labs and vital signs are stable and he is medically cleared for discharge. Time Spent with Patient Time attestation: Total time spent providing and/or coordinating discharge services: Exam Narrative: GENERAL: Comfortable, no acute distress HENMT: moist mucous membranes EYES: EOM intact b/l NECK: no lymphadenopathy RESPIRATORY: clear to auscultation CARDIO: RRR GI: soft, nontender, bowel sounds present SKIN: no rashes EXTREMITIES: no edema, redness or tenderness DS: Data Data Completed and Pending Completed studies during hospitalization: Pending at discharge 04/01/23 14:15 Surgical [PTH] Routine Labs on day of discharge: Labs from last 24 hours 04/07/23 04/07/23 04/07/23 12:08 11:07 08:04 WBC RBC Hgb Hct MCV MCH MCHC RDW Plt Count MPV Immature Gran % (Auto) Neut % (Auto) Lymph % (Auto) Ward % (Auto) Eos % (Auto) Baso % (Auto) Lymph # (Auto) Ward # (Auto) Eos # (Auto) Baso # (Auto) Abs Immat Gran (auto) Absolute Neuts (auto) Absolute Nucleated RBC Nucleated RBC % Sodium Potassium Chloride Carbon Dioxide Anion Gap BUN Creatinine Estim Creat Clear Calc Estimated GFR Glucose POC Capillary Glucose 93 84 Calcium Total Bilirubin AST ALT Alkaline Phosphatase Total Protein Albumin
[2023-04-07 13:46] LABS: Glucose Point of Care 110 mg/dl (65-105)
[2023-04-07 14:16] VITALS: BP 113/75; PULSE 104; RESP 16; TEMP 37.6; O2SAT 98
== END 2023-04-07 15:15 | DRG 669 ==
LOC: ANHED 07:13 → ANH3MEDSUR 10:23
PROVIDERS: Internal Medicine; Nurse Practitioner; Urology; Admitting Provider Student in an Organized Health Care Education/Training Program; Emergency Provider Emergency Medicine; PCP Internal Medicine; Visit Provider Internal Medicine Critical Care Medicine
PROC: 0TCB8ZZ Extirpation of Matter from Bladder, Via Natural or Artificial Opening Endoscopic (ICD-10-PCS; CPT 52001; principal; 2023-04-01 13:45)
DX: N32.89 Other specified disorders of bladder (principal); F20.0 Paranoid schizophrenia; R31.0 Gross hematuria; R33.9 Retention of urine, unspecified; N31.9 Neuromuscular dysfunction of bladder, unspecified; D64.9 Anemia, unspecified; Z20.822 Contact with and (suspected) exposure to COVID-19; L89.890 Pressure ulcer of other site, unstageable; G47.33 Obstructive sleep apnea (adult) (pediatric); N40.0 Benign prostatic hyperplasia without lower urinary tract symptoms; I95.9 Hypotension, unspecified; D72.829 Elevated white blood cell count, unspecified; E78.5 Hyperlipidemia, unspecified; K56.41 Fecal impaction; K62.89 Other specified diseases of anus and rectum; K21.9 Gastro-esophageal reflux disease without esophagitis; Z66 Do not resuscitate; Z79.01 Long term (current) use of anticoagulants; Z87.820 Personal history of traumatic brain injury; Z79.82 Long term (current) use of aspirin; Z86.711 Personal history of pulmonary embolism; Z86.718 Personal history of other venous thrombosis and embolism
CPT/HCPCS: 36415; 36430; 74176; 80053; 81001; 82948; 83605; 83735; 84439; 84443; 84480; 85014; 85018; 85025; 85610; 85730; 86850; 86900; 86901; 86923; 87086; 87635; 88305; 93005; 96361; 99285; A9270; G0378; J0690; J2250; J2704; J3010; J7030; J7050; J7120; J7121; P9016